=== PATIENT | female | born 1940 | race Caucasian/White ===

== ENCOUNTER 2016-08-17 05:16 | Inpatient (IN) | payer BC, OTHER ==
--- NOTE | 2016-07-25 12:06 | PAT Medication Instructions ---
Service Date Jul 25, 2016. Current Home Medication List Amlodipine (Norvasc), 2.5 MG PO QAM Aspirin (Aspirin Ec), 81 MG PO QAM Atenolol (Tenormin), 1 TAB PO BID Cholecalciferol (Vitamin D 1000 Unit), 1,000 INTER.UNIT PO QAM Fish Oil-Coenzyme Q10 (Fish Oil Plus Co Q-10), 1 CAP PO QPM Fluticasone Propionate (Nasal) (Flonase Allergy Relief Ch), 1 SPRAYS KARLA QAM Losartan Potassium (Cozaar), 100 MG PO QAM Magnesium Oxide (Mag-Ox), 400 MG PO QAM Multiple Vitamin (Multivitamin), 1 TAB PO QAM Pantoprazole (Pantoprazole Sodium), 40 MG PO QPM Paroxetine Hcl (Paxil), 10 MG PO QAM Pravastatin Sodium (Pravastatin Sodium), 2.5 MG PO Q2D Probiotic Product (Probiotic), 1 TAB PO QPM Tafluprost (Zioptan), 1 DROP OPL HS Medication Instructions For Your Scheduled Surgery - Hold the following medications 2 weeks prior to surgery: Fish Oil-Coenzyme Q10 (Fish Oil Plus Co Q-10), 1 CAP PO QPM - Hold the following medications the morning of surgery: Magnesium Oxide (Mag-Ox), 400 MG PO QAM Multiple Vitamin (Multivitamin), 1 TAB PO QAM Losartan Potassium (Cozaar), 100 MG PO QAM Cholecalciferol (Vitamin D 1000 Unit), 1,000 INTER.UNIT PO QAM - Take the following medications the morning of surgery with a sip of water: Pravastatin Sodium (Pravastatin Sodium), 2.5 MG PO Q2D Paroxetine Hcl (Paxil), 10 MG PO QAM Fluticasone Propionate (Nasal) (Flonase Allergy Relief Ch), 1 SPRAYS KARLA QAM Atenolol (Tenormin), 1 TAB PO BID Amlodipine (Norvasc), 2.5 MG PO QAM Aspirin (Aspirin Ec), 81 MG PO QAM (okay per surgeon instructions) - Take the following medications as scheduled the night before surgery: Tafluprost (Zioptan), 1 DROP OPL HS Probiotic Product (Probiotic), 1 TAB PO QPM Pantoprazole (Pantoprazole Sodium), 40 MG PO QPM If you have any questions please call us at [phone] (Suzette Chapa PA-C) or [phone] or [phone]
[2016-07-25 12:42] LABS: BASO % 0.3 %; BASO ABS # 0.02 K/uL (0-0.2); COMPLETE YES; EOS % 1.3 %; HEMATOCRIT 38.1 % (37-47); IG% 0.1 %; LYMPH % 23.3 %; LYMPH ABS # 1.63 K/uL (1.2-3.4); MEAN CORPUSCULAR HEMOGLOBIN 32.9 pg (25-34); MEAN CORPUSCULAR HGB CONC 34.6 g/dl (32-36); MEAN PLATELET VOLUME 10.3 fL (7.4-10.4); PLATELET COUNT 189 K/uL (130-400); RED BLOOD COUNT 4.01 M/uL (4.2-5.4); WHITE BLOOD COUNT 6.99 K/uL (4.8-10.8)
[2016-07-25 12:44] LABS: MANUAL MICROSCOPIC REQUIRED? NO; REVIEW REQ? NO; URINE APPEARANCE CLEAR (CLEAR); URINE BILIRUBIN NEG (NEG); URINE COLOR YELLOW; URINE NITRITE NEG (NEG); URINE SPECIFIC GRAVITY 1.007 (1.000-1.030); UROBILINOGEN NEG (NEG)
[2016-07-25 13:35] LABS: BUN/CREATININE RATIO 17.8 (10-20); CALCIUM 9.5 mg/dl (8.5-10.1); CREATININE 0.83 mg/dl (0.60-1.20); POTASSIUM 4.3 mmol/L (3.5-5.1)
--- NOTE | 2016-08-16 20:01 | HISTORY & PHYSICAL EXAMINATION ---
DATE OF ADMISSION: 08/17/2016 HISTORY AND PHYSICAL ADMISSION NOTE CHIEF COMPLAINT: Primary osteoarthritis of the right hip. HISTORY OF PRESENT ILLNESS: Lena is a pleasant 76-year-old female who has been dealing with chronic right hip pain for several years. X-rays and clinical examination were diagnostic for primary osteoarthritis of the right hip. After failing extensive conservative treatment, she elected to proceed with a right total hip arthroplasty. She understands all the risks, benefits, alternatives to the procedure. PAST MEDICAL HISTORY: Significant for mitral valve prolapse, osteoarthritis, hyperlipidemia, and hypertension. PAST SURGICAL HISTORY: Significant for 4 C-sections, 6 eye procedures, shoulder arthroplasty, knee arthroscopy and an appendectomy. ALLERGIES: PERCOCET. MEDICATIONS: Include aspirin 81 mg daily, Vitamin D3 1000 units daily, losartan 100 mg daily, Flonase 2 sprays daily, atenolol 50 mg daily, Protonix 40 mg daily, Norvasc 2.5 mg daily, Pravachol 5 mg every other day, Paxil 10 mg daily, and magnesium oxide 400 mg daily. FAMILY HISTORY: Noncontributory. SOCIAL HISTORY: She is , has 1-2 drinks a day and is moderately active. REVIEW OF SYSTEMS: She complains of right hip pain. All other pertinent review of systems is negative. PHYSICAL EXAMINATION: GENERAL: She is awake, alert and oriented x3. She is in no apparent distress. She is very pleasant. HEENT: Pupils are equal, round and reactive to light. Extraocular motion intact. Oral mucosa is pink and moist. HEART: Regular rate per radial pulse. LUNGS: Ramona symmetrically bilaterally with no audible breath sounds. ABDOMEN: Soft, nontender, nondistended. MUSCULOSKELETAL: She walks with a slightly antalgic gait. Her leg lengths are equal. She has limited motion with flexion and internal and external rotation. She has reproducible pain with forced internal rotation of her hip. IMAGING DATA: X-rays of the hip do show advanced osteoarthritis of the right hip. IMPRESSION: Primary osteoarthritis of the right hip. PLAN: Will proceed with a Biomet Taperloc right total hip arthroplasty. Postoperatively, she will be placed on aspirin 325 mg twice a day for DVT prophylaxis and be admitted for postoperative medical management. She will likely then be discharged to home with [facility].
[~2016-08-17] VITALS: Ht 160 cm; Wt 77.5 kg
[2016-08-17] VITALS (7 sets, daily range): BP systolic 117–171; BP diastolic 68–90; PULSE 50–58; TEMP 36.4–36.7; O2SAT 96–100; Ht 160 cm; Wt 77.5 kg
[~2016-08-17 05:16] MED LIST: AMLO2.5T PO; ASPI81TA28 PO; ATEN50TA PO; CHOL100027 PO; FENTANYL CITRATE INJ 50 MCG/1 ML 2 ML VIAL ONE; FISHCAP2 PO; FLUT1SPR12 NAE; LOSA100T65 PO; MAGN400T5 PO; MIDAZOLAM HCL 1 MG/ML 2ML VIAL ONE; MISCCAP80 PO; MULTTAB58 PO; PARO10TA PO; PRAV10TA39 PO; PRT/40 PO; TAFL1DRO14 OPL
[2016-08-17] MEDS ORDERED: FAMOTIDINE 20 MG TAB PO SCH (06:00)
[2016-08-17] MEDS ORDERED: LACTATED RINGER'S 1000ML IV SCH (06:00)
[2016-08-17] MEDS ORDERED: CEFAZOLIN 2000 MG/60 ML D5W 60 ML IV SCH (06:00)
[2016-08-17] MEDS ORDERED: LACTATED RINGER'S 500 ML IV SCH (06:00)
[2016-08-17] MEDS ORDERED: ROPIVACAINE 5MG/ML 30 ML 150 MG, BUPIVACAINE/EPINEPHR 0.5% MPF 30 ML, KETOROLAC TROMETH... INFIL SCH ×14 (06:00)
[2016-08-17] MEDS ORDERED: ACETAMINOPHEN 500 MG TAB PO SCH (06:00)
[2016-08-17] MEDS ORDERED: GABAPENTIN 300 MG CAP PO SCH (06:00)
[2016-08-17] MEDS ORDERED: LACTATED RINGER'S 1000ML 1,000 ML IV SCH (06:00)
[2016-08-17] MEDS: TRANEXAMIC ACID INJ 1,000 MG in SODIUM CHLORIDE 0.9% 100ML 100 ML IV SCH ×2 (06:14→06:30)
--- NOTE | 2016-08-17 06:17 | History & Physical Bridge Note ---
H&P Re-Evaluation Bridge Note: I have examined the patient, reviewed the History & Physical and in the interval since the performance of the History & Physical I have noted the following changes of clinical significance: No changes noted
[2016-08-17] MEDS ORDERED: BUPIVACAINE 0.5 % 5 MG/1 ML PF 10ML VIAL ONE (06:25)
[2016-08-17] MEDS ORDERED: ORTHO JOINT ANESTHETIC ONE (06:31)
[2016-08-17] MEDS ORDERED: MIDAZOLAM HCL 1 MG/ML 2ML VIAL ONE ×2 (06:35→07:08)
[2016-08-17] MEDS ORDERED: FENTANYL CITRATE INJ 50 MCG/1 ML 2 ML VIAL ONE (06:35)
[2016-08-17] MEDS ORDERED: EpHEDrine SULFATE 50MG/5ML SYR ONE (07:18)
[2016-08-17] MEDS ORDERED: PROPOFOL IV EMULSION 10 MG/ML 20 ML VIAL IV ONE (07:18)
[2016-08-17] MEDS ORDERED: LIDOCAINE HCL 2% 2 ML VIAL (20MG/ML) ONE (07:31)
[2016-08-17] MEDS ORDERED: BACITRACIN 50000 UNIT VIAL IR ONE (07:53)
[2016-08-17] MEDS ORDERED: ONDANSETRON INJ 2 MG/ML 2 ML VIAL IV PRN (08:30)
[2016-08-17] MEDS ORDERED: ATROPINE SULFATE 0.1 MG/ML 5ML SYR IV PRN (08:30)
[2016-08-17] MEDS ORDERED: EpHEDrine SULFATE INJ 50 MG/ML AMP IV PRN (08:30)
[2016-08-17] MEDS ORDERED: FENTANYL CITRATE INJ 50 MCG/1 ML 2 ML VIAL IV PRN (08:30)
--- NOTE | 2016-08-17 08:47 | [facility] Post Operative Brief Note ---
Immediate Operative Summary Operative Date Aug 17, 2016. Pre-Operative Diagnosis Primary Osteoarthritis Right Hip Post-Operative Diagnosis Primary Osteoarthritis Right Hip Procedure(s) Performed Right Total Hip Arthroplasty--Uncemented Surgeon Dr. Vasquez Artist Relationship Manager Surgeon(s) LENI Tucker Estimated Blood Loss 350 ml Findings as above Specimens A. Right Femoral Head Complication(s) None Disposition Recovery Room / PACU
[2016-08-17] MEDS ORDERED: MAGNESIUM HYDROXIDE SUSP 30 ML UDC PO PRN (09:00)
[2016-08-17] MEDS ORDERED: BISACODYL 10 MG SUPP PR PRN (09:00)
[2016-08-17] MEDS ORDERED: SOD PHOSPHATE/SOD BIPHOSPHATE ENEMA 132 ML BTL PR PRN (09:00)
--- NOTE | 2016-08-17 09:07 | OPERATIVE REPORT ---
DATE OF OPERATION: 08/17/2016 PREOPERATIVE DIAGNOSIS: Primary osteoarthritis of the right hip. POSTOPERATIVE DIAGNOSIS: Same. PROCEDURE: Right total hip arthroplasty. SURGEON: Dr. Yvon Vasquez. INDUSTRIAL EQUIPMENT MECHANIC: Bipin Raman PA-C, whose assistance was necessary for positioning the leg and helping with instrumentation. ANESTHESIA: Sedation with a spinal anesthetic. COMPLICATIONS: None. CONDITION: Stable to PACU. IMPLANTS USED: I used a Biomet taper lock total hip arthroplasty with a size 9 standard pressfit stem, 48-mm G7 cup with a single 20-mm screw, neutral E1-poly liner and a 32 standard ceramic head. INDICATIONS: Lena is a 76-year-old female who presented to my office with chronic right hip pain. X-rays and clinical examination were diagnostic for primary osteoarthritis of the right hip. After failing conservative treatment, she elected to undergo a right total hip arthroplasty. DESCRIPTION OF PROCEDURE: On 08/17/2016, she arrived at [facility] for the above procedure. She was seen in the preoperative holding area and the operative extremity was identified and signed. She was given a preoperative antibiotic and a spinal anesthetic. She was taken back to the operating room, laid on the table in supine position and given basic sedation. She was then put in the lateral decubitus position. The right hip was prepped and draped in sterile fashion. Time-out was done and the patient and operative extremity was properly identified. A lateral approach was utilized. Dissection was taken down through the fascia and the abductors were exposed, anterior third of the abductors were tenotomized off the greater trochanter. The capsule was excised and the hip was dislocated. The femoral neck was resected and the head was removed. The acetabulum was then exposed. Time was spent doing a complete circumferential capsular and labral release. Sequential reaming of the acetabulum up to a size 47 reamer was done. A 48-mm G7 cup was then impacted into place. I was able to get a good press fit. A single 20-mm screw was placed and the E1 neutral liner was snapped into place. The femoral neck was then exposed. Sequential broaching up to a size 9 broach was done. A standard head and neck assembly was applied. The hip was reduced, brought through a full range of motion and felt to be stable. A single flat plate x-ray showed appropriate sizing of the implants and good alignment of the hip. The trials were then removed. The final 9-mm femoral implant was impacted into place. A 32 standard ceramic head was then impacted into place. The hip was then reduced, brought through a full range of motion and felt to be stable. The entire wound was then irrigated with 3 liters of normal saline solution with bacitracin. The surrounding soft tissues were injected with 100 mL of orthopedic pain control cocktail. The abductors were then tenodesed back to the greater trochanter with transosseous FiberWire sutures and [id number] sutures. Two drains were placed. The fascia was closed with #1 Vicryl, skin was closed with 2-0 Vicryl, 3-0 V-Loc suture and a Prineo dressing. She was then taken to the postanesthesia care unit in stable condition. She tolerated the procedure well. I attest to the content of the Intraoperative Record and any orders documented therein. Any exceptio ns are noted below.
--- NOTE | 2016-08-17 09:34 | Anesthesiology Progress Note ---
Anesthesia Post Op Note Date & Time Aug 17, 2016 at 09:34 Vital Signs Pain Intensity: 0 Vital Signs Past 12 Hours Date Time Temp Pulse Resp B/P Pulse Ox O2 Delivery O2 Flow Rate FiO2 08/17/16 09:16 36.8 46 14 08/17/16 09:16 46 14 100 08/17/16 09:13 144/62 08/17/16 09:11 45 15 100 08/17/16 09:11 44 15 08/17/16 09:08 146/63 08/17/16 09:06 47 22 100 08/17/16 09:06 47 22 08/17/16 09:03 137/63 08/17/16 09:01 44 15 100 08/17/16 09:01 45 15 08/17/16 08:58 140/66 08/17/16 08:56 50 19 100 08/17/16 08:56 46 19 08/17/16 08:53 132/61 08/17/16 08:51 46 14 08/17/16 08:51 45 14 100 08/17/16 08:48 134/60 08/17/16 08:46 46 19 100 08/17/16 08:46 46 19 08/17/16 08:43 135/59 08/17/16 08:41 48 20 100 08/17/16 08:41 47 20 08/17/16 08:39 131/72 08/17/16 08:36 36.8 48 16 131/72 100 Nasal Cannula 3 08/17/16 05:35 36.7 58 20 171/71 100 Room Air Notes Mental Status: alert / awake / arousable, participated in evaluation Pt Amnestic to Procedure: Yes Nausea / Vomiting: adequately controlled Pain: adequately controlled Airway Patency, RR, SpO2: stable & adequate BP & HR: stable & adequate Hydration State: stable & adequate Neuraxial Anesthesia: was administered, sensory block is resolving Anesthetic Complications: no major complications apparent
--- NOTE | 2016-08-17 10:20 | DIAGNOSTIC IMAGING REPORT ---
AP PELVIS AND RIGHT HIP 2 VIEWS CLINICAL HISTORY: Degenerative arthritis. Postop examination. COMPARISON STUDY: No previous studies for comparison. FINDINGS: There are postsurgical changes of a total right hip arthroplasty. The acetabular and femoral components appear well seated. There is an overlying surgical drain. There is air within soft tissues consistent with recent surgery. No dislocation is visualized. IMPRESSION: Postsurgical changes of a total right hip arthroplasty. Electronically signed by: Timmy Ashley M.D. 08/17/2016 10:19 AM Dictated Date/Time: 08/17/2016 10:18 AM
[2016-08-17] MEDS ORDERED: NURSING VERBAL MED ORDER ONE ×2 (10:30→22:00)
[2016-08-17] MEDS: SODIUM CHLORIDE 0.9% 1000ML 1,000 ML IV SCH ×2 (10:54→20:29)
[2016-08-17] MEDS: TRAMADOL HCL 50 MG TAB PO PRN ×3 (11:54→20:36)
--- NOTE | 2016-08-17 12:36 | DIAGNOSTIC IMAGING REPORT ---
INTRAOPERATIVE LEFT HIP SINGLE VIEW CLINICAL HISTORY: Hip arthroplasty COMPARISON: None. DISCUSSION: A single intraoperative fluoroscopic spot images provided for interpretation. This demonstrates and acetabular cup and serrated femoral spike. IMPRESSION: Intraoperative fluoroscopic spot images as described above. Electronically signed by: Timmy Ashley M.D. 08/17/2016 12:35 PM Dictated Date/Time: 08/17/2016 12:34 PM
[2016-08-17] MEDS: ACETAMINOPHEN IV 1,000 MG in EMPTY BAG 0 ML IV SCH ×2 (13:58→20:28)
[2016-08-17] MEDS: CEFAZOLIN IV 2,000 MG in DEXTROSE 5% 50ML 50 ML IV SCH ×2 (14:44→23:15)
[2016-08-17] MEDS: TAFLUPROST 0.0015% OP SCH (20:21)
[2016-08-17] MEDS: SENNA 8.6 MG TAB PO SCH (20:26)
[2016-08-17] MEDS: DOCUSATE SODIUM 100 MG CAP PO SCH (20:27)
[2016-08-17] MEDS: ASPIRIN 325 MG ECTAB PO SCH (20:27)
[2016-08-17] MEDS ORDERED: KETOROLAC TROMETHAMINE 15 MG/ML VIAL ONE (21:59)
[2016-08-17] MEDS: KETOROLAC TROMETHAMINE 15 MG/ML VIAL IV. SCH (22:03)
[2016-08-18] MEDS: TRAMADOL HCL 50 MG TAB PO PRN ×4 (00:54→20:43)
[2016-08-18 03:20] VITALS: BP 150/64; PULSE 57; TEMP 36.8; O2SAT 99
[2016-08-18] MEDS: ACETAMINOPHEN IV 1,000 MG in EMPTY BAG 0 ML IV SCH (05:46)
[2016-08-18] MEDS: SODIUM CHLORIDE 0.9% 1000ML 1,000 ML IV SCH (05:46)
[2016-08-18 06:26] LABS: COMPLETE YES; HEMATOCRIT 29.7 % (37-47); IG% 0.3 %; LYMPH % 10.1 %; LYMPH ABS # 0.96 K/uL (1.2-3.4); MEAN CELL VOLUME 94.3 fL (80-100); MEAN PLATELET VOLUME 10.5 fL (7.4-10.4); MONO % 8.1 %; NEUT % 81.5 %; PLATELET COUNT 144 K/uL (130-400); RED BLOOD COUNT 3.15 M/uL (4.2-5.4); WHITE BLOOD COUNT 9.54 K/uL (4.8-10.8)
[2016-08-18 06:59] LABS: BUN/CREATININE RATIO 20.2 (10-20); CALCIUM 8.3 mg/dl (8.5-10.1); CREATININE 0.66 mg/dl (0.60-1.20)
[2016-08-18 08:00] VITALS: BP 138/90; PULSE 58; TEMP 36.7; O2SAT 95
[2016-08-18] MEDS: FLUTICASONE PROPIONATE NA SPR 16 GM BTL NAE SCH (08:53)
[2016-08-18] MEDS: DOCUSATE SODIUM 100 MG CAP PO SCH ×2 (08:54→20:45)
[2016-08-18] MEDS: MAGNESIUM OXIDE 400 MG TAB PO SCH (08:55)
[2016-08-18] MEDS: ASPIRIN 325 MG ECTAB PO SCH ×2 (08:55→20:44)
[2016-08-18] MEDS: PAROXETINE 20 MG TAB PO SCH (08:56)
[2016-08-18] MEDS: AMLODIPINE BESYLATE 5 MG TAB PO SCH (08:56)
[2016-08-18] MEDS: CHOLECALCIFEROL 1000 INTER.UNIT TAB PO SCH (08:57)
[2016-08-18] MEDS: KETOROLAC TROMETHAMINE 15 MG/ML VIAL IV. SCH ×2 (09:02→20:45)
[2016-08-18 09:55] VITALS: O2SAT 95
[2016-08-18] MEDS: LOSARTAN POTASSIUM 50 MG TAB PO SCH (10:21)
--- NOTE | 2016-08-18 10:33 | PROGRESS NOTE ---
DATE: 08/18/2016 DATE: 08/18/2016. CHIEF COMPLAINT: Status post right total hip arthroplasty postop day #1. PROGRESS: Lena was seen and examined at bedside today. Overall, she is doing fairly well. She was ambulating around the nurses station last night and she worked well today with physical therapy. She had a lot of spasms and pain in her hip last night but they are much better today. She has no other complaints. PHYSICAL EXAMINATION: RIGHT HIP: The dressing is clean and dry and the drain is to suction. Her leg lengths are equal. She has active dorsiflexion and plantarflexion of her right ankle. VITAL SIGNS: All stable on room air. She is voiding on her own. LABORATORY DATA: She has an H\T\H today of 10.4 and 29.7. Her creatinine is stable at 0.66. X-rays postoperatively of the right hip show the prosthesis to be in anatomic alignment without any evidence of fracture, dislocation or loosening. IMPRESSION: Status post right total hip arthroplasty postop day #1. PLAN: At this point, she is doing very well. Her pain is controlled with oral pain medication. She is working well with physical therapy. Tomorrow we will change the dressing, pull the drain and likely discharge her to home with [facility].
[2016-08-18] MEDS ORDERED: NURSING VERBAL MED ORDER ONE (10:45)
[2016-08-18 11:59] VITALS: BP 128/68; PULSE 64; TEMP 36.5; O2SAT 98
[2016-08-18 15:31] VITALS: BP 136/72; PULSE 55; TEMP 36.8; O2SAT 97
[2016-08-18] MEDS: TAFLUPROST 0.0015% OP SCH (20:42)
[2016-08-18] MEDS: SENNA 8.6 MG TAB PO SCH (20:43)
[2016-08-18] MEDS ORDERED: PRAVASTATIN SOD 10 MG TAB PO SCH (22:00)
[2016-08-18 23:09] VITALS: BP 130/66; PULSE 60; TEMP 36.4; O2SAT 95
[2016-08-19 08:07] VITALS: BP 144/73; PULSE 57; TEMP 36.9; O2SAT 97
[2016-08-19] MEDS: TRAMADOL HCL 50 MG TAB PO PRN (08:27)
[2016-08-19] MEDS: DOCUSATE SODIUM 100 MG CAP PO SCH (08:27)
[2016-08-19] MEDS: FLUTICASONE PROPIONATE NA SPR 16 GM BTL NAE SCH (08:27)
[2016-08-19] MEDS: LOSARTAN POTASSIUM 50 MG TAB PO SCH (08:28)
[2016-08-19] MEDS: ASPIRIN 325 MG ECTAB PO SCH (08:28)
[2016-08-19] MEDS: MAGNESIUM OXIDE 400 MG TAB PO SCH (08:28)
[2016-08-19] MEDS: AMLODIPINE BESYLATE 5 MG TAB PO SCH (08:29)
[2016-08-19] MEDS: PAROXETINE 20 MG TAB PO SCH (08:30)
[2016-08-19] MEDS: CHOLECALCIFEROL 1000 INTER.UNIT TAB PO SCH (08:30)
[2016-08-19] MEDS ORDERED: ULT50X PO (09:23)
--- NOTE | 2016-08-19 09:25 | Discharge Instructions ---
Discharge Instructions Admission Reason for Admission: Right Hip Degenerative Joint Disease Discharge Discharge Diagnosis / Problem: Right Total Hip Discharge Goals Goal(s): Decrease discomfort, Improve function Activity Recommendations Activity Limitations: as noted below Shower/Bathe: may shower/bathe in 3 days follow hip precautions for 3 months . Current Hospital Diet Patient's current hospital diet: Regular Diet Discharge Diet Recommended Diet: Regular Diet Procedures Procedures Performed: Right Total Hip Arthroplasty--Uncemented Pending Studies Studies pending at discharge: no Medical Emergencies . Who to Call and When: Medical Emergencies: If at any time you feel your situation is an emergency, please call 911 immediately. . Non-Emergent Contact Non-Emergency issues call your: Surgeon Call Non-Emergent contact if: wound has increased drainage, wound has increased redness . "Provider Documentation" section prepared by Yvon Vasquez. VTE Core Measure Inpt VTE Proph given/why not?: Other Anticoagulation (Aspirin 325mg twice a day for 6 weeks)
[2016-08-19] MEDS: KETOROLAC TROMETHAMINE 15 MG/ML VIAL IV. SCH (10:02)
[2016-08-19 10:23] VITALS: BP 144/73; PULSE 57; TEMP 36.9; O2SAT 97
--- NOTE | 2016-08-19 10:33 | DISCHARGE SUMMARY ---
DISCHARGE DIAGNOSIS: Primary osteoarthritis of the right hip. PROCEDURE: Right total hip arthroplasty on 08/17/[address] Yvon Vasquez. DISCHARGE INSTRUCTIONS: 1. Tramadol 50 mg every 4 hours as needed for pain. 2. Norvasc 2.5 mg daily. 3. Atenolol 50 mg daily. 4. Vitamin D 1000 units daily. 5. Fish oil daily. 6. Flonase 50 mcg daily. 7. Cozaar 100 mg daily. 8. Magnesium 400 mg daily. 9. Daily multivitamin. 10. Protonix 40 mg daily. 11. Paxil 10 mg daily. 12. Pravastatin 2.5 mg every other day. 13. Zioptan 1 drop at night. 14. Aspirin 325 mg twice a day for 6 weeks. 15. BALJEET hose stockings for 6 weeks. 16. May shower starting tomorrow. 17. Follow up with Dr. Vasquez in 2 weeks. 18. Call the office of Dr. Vasquez with any questions or concerns. HOSPITAL COURSE: Lena is a pleasant 76-year-old female who presented to my office with chronic right hip pain. X-rays and clinical examination were diagnostic for primary osteoarthritis of the right hip. After failing conservative treatment, she elected to undergo a right total hip arthroplasty. On 08/17/2016, she arrived at [facility] and underwent a right hip replacement without complications. She had a spinal anesthetic. Postoperatively, she was discharged to general orthopedic floors. Her hospital course was uneventful. On postop day #1, her H\T\H was stable at 10.4 and 29.7. She was on aspirin for DVT prophylaxis. She was up and ambulating well with physical therapy. On postop day 2, she continued to do fairly well. She was having more soreness on the second day, but it was controlled with the tramadol pain medications. The dressing was changed, the drain was pulled. She was seen again by physical therapy and subsequently discharged to home with the above instructions.
--- NOTE | 2016-08-19 10:55 | PROGRESS NOTE ---
DATE: 08/19/2016 CHIEF COMPLAINT: Status post right total hip arthroplasty postop day #2. SUBJECTIVE: Lena was seen and examined at the bedside today. Overall, she is doing fairly well. She was having more pain this morning than she had yesterday, but she was up and ambulating a lot yesterday. She has no new complaints. PHYSICAL EXAMINATION: RIGHT HIP: The dressing was changed, the Prineo was left exposed. The drains were pulled. The incision looks good. There is no drainage or redness. She is neurovascularly intact. IMPRESSION: Status post right total hip arthroplasty postop day #2. PLAN: At this point, she is doing well. We will continue to control pain with the oral tramadol. She will be seen by physical therapy later this morning and we will discharge her to home with [facility].
[2017-01-10] MEDS ORDERED: TRAM-10 PO (09:49)
== END 2016-08-19 11:29 | disposition home health service (06) | DRG 470 ==
LOC: ENRESERVTM → ENRESERVDT → C.ACU 05:16 → C.3E 06:25
PROVIDERS: ADMIT Orthopaedic Surgery; ATTEND Orthopaedic Surgery
PROC: 0SR904Z Replacement of Right Hip Joint with Ceramic on Polyethylene Synthetic Substitute, Open Approach (ICD-10-PCS; principal; 2016-08-17 07:00)
DX: M16.11 Unilateral primary osteoarthritis, right hip (principal); I10 Essential (primary) hypertension; E78.5 Hyperlipidemia, unspecified; K21.9 Gastro-esophageal reflux disease without esophagitis; F32.9 Major depressive disorder, single episode, unspecified; F41.9 Anxiety disorder, unspecified; H40.9 Unspecified glaucoma; Z87.891 Personal history of nicotine dependence; Z79.82 Long term (current) use of aspirin; Z79.899 Other long term (current) drug therapy

== ENCOUNTER → 2016-12-19 | Outpatient (CLI) | payer BC ==
[~2016-12-19] MED LIST changes: +ATEN50TA8 PO; -FENTANYL CITRATE INJ 50 MCG/1 ML 2 ML VIAL ONE; -MIDAZOLAM HCL 1 MG/ML 2ML VIAL ONE; +PANT40TA2 PO; -PRT/40 PO; +TRAM-10 PO; +ULT50X PO
[2016-12-19 13:32] LABS: BASO % 0.6 %; BASO ABS # 0.03 K/uL (0-0.2); COMPLETE YES; EOS % 2.3 %; HEMATOCRIT 37.5 % (37-47); IG% 0.4 %; LYMPH % 35.4 %; LYMPH ABS # 1.88 K/uL (1.2-3.4); MEAN CELL VOLUME 95.7 fL (80-100); MEAN CORPUSCULAR HEMOGLOBIN 31.9 pg (25-34); MEAN CORPUSCULAR HGB CONC 33.3 g/dl (32-36); MEAN PLATELET VOLUME 10.9 fL (7.4-10.4); MONO % 10.5 %; NEUT % 50.8 %; PLATELET COUNT 185 K/uL (130-400); RED BLOOD COUNT 3.92 M/uL (4.2-5.4); WHITE BLOOD COUNT 5.31 K/uL (4.8-10.8)
[2016-12-19 13:51] LABS: BLOOD UREA NITROGEN 17 mg/dl (7-18); BUN/CREATININE RATIO 21.4 (10-20); CALCIUM 8.7 mg/dl (8.5-10.1); CARBON DIOXIDE 28 mmol/L (21-32); CHLORIDE 106 mmol/L (98-107); CREATININE 0.81 mg/dl (0.60-1.20); GLUCOSE 89 mg/dl (70-99); POTASSIUM 4.2 mmol/L (3.5-5.1); SODIUM 140 mmol/L (136-145)
== END | disposition home or self-care (01) ==
LOC: C.LABBC 10:52
PROVIDERS: ATTEND Orthopaedic Surgery
DX: Z01.812 Encounter for preprocedural laboratory examination (principal); M25.562 Pain in left knee

== ENCOUNTER → 2017-01-10 | Day surgery (SDC) | payer BC ==
[2016-12-28 13:22] VITALS: Ht 157.5 cm; Wt 78.2 kg
[~2017-01-10] VITALS: Ht 157.5 cm; Wt 78.2 kg
[~2017-01-10] MED LIST changes: +ATROPINE SULFATE 0.1 MG/ML 5ML SYR IV PRN; +CEFAZOLIN 2000 MG/60 ML D5W IV SCH; +DEXAMETHASONE SOD INJ 4 MG/ML VIAL ONE; +EpINEphrine INJ 1MG/ML AMP 1 MG/ML AMP ONE; +FENTANYL CITRATE INJ 50 MCG/1 ML 2 ML VIAL ONE; +KETOROLAC TROMETHAMINE 30 MG/ML VIAL ONE; +LABETALOL HCL IV 5 MG/ML 20ML IV PRN; +LACTATED RINGER'S 1000ML 1,000 ML IV SCH; +LIDOCAINE HCL 2% 2 ML VIAL (20MG/ML) ONE; +ONDANSETRON INJ 2 MG/ML 2 ML VIAL IV PRN; +ONDANSETRON INJ 2 MG/ML 2 ML VIAL ONE; +PROPOFOL IV EMULSION 10 MG/ML 20 ML VIAL IV ONE; +ROPIVACAINE 0.5% 5 MG/ML 30 ML VIAL ONE; +SODIUM CHLORIDE 0.9% 1000ML 1,000 ML IV SCH; +TRAMADOL HCL 50 MG TAB PO PRN; -ULT50X PO
--- NOTE | 2017-01-10 09:51 | Discharge Instructions-SurgCtr ---
Discharge Instructions Date of Service Jan 10, 2017. Visit Reason for Visit: Left Knee Medial Meniscus Tear, Prepatellar Bursit Discharge Discharge Diagnosis / Problem: SAME ABOVE Discharge Goals Goal(s): Decrease discomfort, Improve function Medications Stopped Medications Name(s): HELD FISH OIL AND ASPIRIN FOR ONE WEEK Restart Stopped Medication(s): MAY RESTART 01/10/2017 Activity Recommendations Activity Limitations: as noted below Lifting Limitations: gradually increase as tolerated Exercise/Sports Limitations: gradually increase as tolerated Shower/Bathe: tomorrow Weightbearing Status: Left weightbearing (as tolerated) Anesthesia . Post Anesthesia Instructions: If you have had General Anesthesia or IV Sedation: * Do not drive today. * Resume driving when surgeon permits. * Do not make important decisions or sign legal documents today. * Call surgeon for: 1. Temperature elevations greater than 101 degrees F. 2. Uncontrollable pain. 3. Excessive bleeding. 4. Persistent nausea and vomiting. 5. Medication intolerance (nausea, vomiting or rash). * For nausea and vomiting use only clear liquids such as: tea, soda, bouillon until nausea subsides, then gradually increase diet as tolerated. * If you have any concerns or questions, call your surgeon's office. If physician is unavailable and it is an emergency, call 911 or go to the nearest emergency room. . Instructions / Follow-Up Instructions / Follow-Up MEDICATIONS: * Resume previous medications unless instructed otherwise by your surgeon. * Always take pain medication on a full stomach or with food to avoid upset stomach. * Do not drink alcohol or drive while taking narcotics. * Ibuprofen or Tylenol may be taken if narcotic not needed. SPECIAL CARE INSTRUCTIONS: __ None _X_ Keep extremity elevated and iced x 48 hours; apply ice 20-30 minutes 8-10 times/day. May remove at night. _X_ Crutches _X_ May discard when able __ Brace/Post-op shoe __ 24 hrs/day __ Remove at night _X_ Dressing __ Maintain until seen in office, may shower with plastic over site _X_ Remove dressings in 24-48 hours and then may shower _X_ Cover incisions with band-aids after showering __ Do not remove steri-strips Call physician if chills or temperature rises above 102 degrees or pain unrelieved by prescribed pain medications. Office [phone] Diet Recommendations Home Diet: no limitations Fluid Restriction: None Procedures Procedures Performed: Left Knee Arthroscopy, Partial Medial and Lateral Meniscectomy, Chondroplasty, And Excision Of Prepatellar Bursa Pending Studies Studies pending at discharge: no Medical Emergencies . Who to Call and When: Medical Emergencies: If at any time you feel your situation is an emergency, please call 911 immediately. . Non-Emergent Contact Non-Emergency issues call your: Primary Care Provider Call Non-Emergent contact if: you have a fever, temperature is above 101.5 . . "Provider Documentation" section prepared by Ajit Raman. .
[2017-01-10] MEDS: FENTANYL CITRATE INJ 50 MCG/1 ML 2 ML VIAL IV PRN ×4 (10:09→10:27)
[2017-01-10 10:52] VITALS: TEMP 36.6
--- NOTE | 2017-01-10 11:01 | Anesthesia Progress Nt - [facility] ---
Anesthesia Post Op Note Date & Time Jan 10, 2017 at 11:00 Vital Signs Pain Intensity: 5 Vital Signs Past 12 Hours Date Time Temp Pulse Resp B/P (MAP) Pulse Ox O2 Delivery O2 Flow Rate FiO2 01/10/17 10:52 36.6 60 16 159/87 (111) 96 Room Air 01/10/17 10:42 56 13 98 01/10/17 10:42 57 13 01/10/17 10:41 36.6 01/10/17 10:41 166/76 01/10/17 10:37 58 18 01/10/17 10:37 59 18 93 01/10/17 10:35 153/75 01/10/17 10:32 64 21 01/10/17 10:32 64 21 97 01/10/17 10:31 148/74 01/10/17 10:27 61 12 01/10/17 10:27 61 12 98 01/10/17 10:26 156/70 01/10/17 10:24 Room Air 01/10/17 10:22 61 14 93 01/10/17 10:22 61 14 01/10/17 10:20 161/79 01/10/17 10:17 58 13 01/10/17 10:17 59 13 100 01/10/17 10:15 155/75 01/10/17 10:12 55 15 01/10/17 10:12 55 15 100 01/10/17 10:11 150/60 01/10/17 10:07 56 14 92 01/10/17 10:07 65 14 01/10/17 10:05 155/76 01/10/17 10:02 57 14 01/10/17 10:02 57 14 100 01/10/17 10:01 141/79 01/10/17 09:57 58 15 100 01/10/17 09:57 57 15 01/10/17 09:55 141/70 01/10/17 09:52 53 10 01/10/17 09:52 53 10 98 01/10/17 09:50 36.6 52 14 142/69 98 Diffusion Mask 01/10/17 08:16 36.8 60 18 175/75 (108) 98 Room Air Notes Mental Status: alert / awake / arousable, participated in evaluation Pt Amnestic to Procedure: Yes Nausea / Vomiting: adequately controlled Pain: adequately controlled Airway Patency, RR, SpO2: stable & adequate BP & HR: stable & adequate Hydration State: stable & adequate Anesthetic Complications: no major complications apparent
[2017-01-10 11:20] VITALS: BP 157/81; PULSE 54; O2SAT 96
--- NOTE | 2017-01-10 15:38 | [facility] Post Operative Brief Note ---
Immediate Operative Summary Operative Date Jan 10, 2017. Pre-Operative Diagnosis Left Knee Medial Meniscus Tear Post-Operative Diagnosis Same Procedure(s) Performed Left Knee Arthroscopy, Partial Medial and Lateral Meniscectomy, Chondroplasty, And Excision Of Prepatellar Bursa Surgeon Dr. Vasquez Double Cut Sawyer Surgeon(s) iTmbo Raman PA-C Estimated Blood Loss 5 mL Findings as above Specimens None Complication(s) None Disposition Recovery Room / PACU
--- NOTE | 2017-01-10 18:51 | OPERATIVE REPORT ---
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 POSTOPERATIVE DIAGNOSES: Medial and lateral meniscal tears and chondromalacia with large plica and prepatellar bursitis. PROCEDURE: Left knee diagnostic arthroscopy with limited synovectomy including plica excision, chondroplasty of both the distal medial and lateral femoral condyle and partial medial and lateral meniscectomies with open excision of the prepatellar bursa. SURGEON: Dr. Yvon Vasquez. SUPERVISOR [employer] YE[employer]: Bipin Raman PA-C, whose assistance was necessary for positioning of the leg and helping with instrumentation. ANESTHESIA: General. COMPLICATIONS: None. CONDITION: Stable to PACU. INDICATIONS: Lena is a pleasant 76-year-old female who presented to my office with increasing severe left knee pain. MRI showed a complex medial meniscal tear and chondromalacia. She was also having pain in her prepatellar bursa. There was some inflammatory bursal tissue there that hurt her whenever she bend her knee or kneeled on it. DESCRIPTION OF PROCEDURE: On 01/10/2015 she arrived at [facility] for the above procedure. She was seen in the preoperative holding area and the operative extremity was identified and signed. She was given a preoperative antibiotic and taken back to the operating room, laid on the table in supine position and put under general anesthesia. The left knee was then prepped and draped in sterile fashion. Time-out was done and the patient and operative extremity was properly identified. A scope was introduced in the lateral parapatellar portal. Diagnostic arthroscopy showed no loose bodies in the suprapatellar pouch. There was minimal arthritis in the patellofemoral joint. There was a very large plica that was rubbing along the distal medial femoral condyle and looked like it was wearing the cartilage away. The scope was then brought into the medial compartment. A medial parapatellar portal was made under direct visualization. There was complex tearing of the entire posterior meniscus. A shaver and a biter were used to remove the unstable portions of the meniscus. Unfortunately, most of the meniscal root was torn. There was some chondromalacia of the distal medial femoral condyle and this was cleaned up with a shaver. The scope was brought into the trochlea. ACL and PCL were intact. The scope was then brought into the lateral compartment. There was some tearing of the posterior root of the lateral meniscus. A shaver and biter were used to take back to stable margins. A shaver was used to do a chondroplasty of grade 2 chondral changes off the distal lateral femoral condyle. The knee was then brought into full extension. A shaver and a biter were used to remove the plica and complete a limited synovectomy of the area. This appeared to release some tension off the cartilage surface. The scope was then placed into the medial parapatellar portal, repeat diagnostic arthroscopy showed no additional pathology. The knee was then irrigated and arthroscopic instrument removed. Attention was then turned to the excision of prepatellar bursa. A small incision was made longitudinally directly over the bursa. Dissection was taken down to the tissue and inflammatory tissue complements were excised. The wound was then irrigated and closed with 4-0 nylon sutures. Portal sites were closed with 3-0 nylon. The knee was then injected with 30 mL of ropivacaine and Toradol. She was then placed in a soft compressive dressing, extubated, transferred to a [facility] and taken to the postanesthesia care unit in stable condition. She tolerated the procedure well. I attest to the content of the Intraoperative Record and any orders documented therein. Any exception s are noted below.
== END | disposition home or self-care (01) ==
LOC: X.SURG 07:22
PROVIDERS: ATTEND Orthopaedic Surgery
DX: M23.322 Other meniscus derangements, posterior horn of medial meniscus, left knee (principal); M23.352 Other meniscus derangements, posterior horn of lateral meniscus, left knee; I10 Essential (primary) hypertension; I34.1 Nonrheumatic mitral (valve) prolapse; Z79.82 Long term (current) use of aspirin

== ENCOUNTER → 2017-01-30 | Outpatient (CLI) | payer BC ==
[~2017-01-30] MED LIST changes: -ASPI81TA28 PO; -ATEN50TA8 PO; -ATROPINE SULFATE 0.1 MG/ML 5ML SYR IV PRN; -CEFAZOLIN 2000 MG/60 ML D5W IV SCH; -DEXAMETHASONE SOD INJ 4 MG/ML VIAL ONE; -EpINEphrine INJ 1MG/ML AMP 1 MG/ML AMP ONE; -FENTANYL CITRATE INJ 50 MCG/1 ML 2 ML VIAL ONE; -KETOROLAC TROMETHAMINE 30 MG/ML VIAL ONE; -LABETALOL HCL IV 5 MG/ML 20ML IV PRN; -LACTATED RINGER'S 1000ML 1,000 ML IV SCH; -LIDOCAINE HCL 2% 2 ML VIAL (20MG/ML) ONE; -ONDANSETRON INJ 2 MG/ML 2 ML VIAL IV PRN; -ONDANSETRON INJ 2 MG/ML 2 ML VIAL ONE; -PANT40TA2 PO; -PROPOFOL IV EMULSION 10 MG/ML 20 ML VIAL IV ONE; +PRT/40 PO; -ROPIVACAINE 0.5% 5 MG/ML 30 ML VIAL ONE; -SODIUM CHLORIDE 0.9% 1000ML 1,000 ML IV SCH; -TRAMADOL HCL 50 MG TAB PO PRN
--- NOTE | 2017-01-30 15:38 | MAMMOGRAPHY REPORT ---
BILATERAL DIGITAL SCREENING MAMMOGRAM WITH CAD: 01/30/2017 CLINICAL HISTORY: Routine screening. TECHNIQUE: Current study was also evaluated with a Computer Aided Detection (CAD) system. Bilateral CC and MLO views were obtained. COMPARISON: Comparison is made to exams dated: 01/10/2016 mammogram, 01/06/2015 mammogram, 01/05/2014 m ammogram, 12/30/2012 mammogram, 01/29/2012 mammogram, and 12/13/2010 mammogram - [facility] enter. BREAST COMPOSITION: There are scattered areas of fibroglandular density in both breasts. FINDINGS: No suspicious masses, calcifications, or areas of architectural distortion are noted in ei ther breast. There has been no significant interval change compared to prior exams. Bilateral benign -appearing calcifications are not significantly changed. IMPRESSION: ACR BI-RADS CATEGORY 2: BENIGN There is no mammographic evidence of malignancy. A 1 year screening mammogram is recommended. The pa tient will receive written notification of the results. Approximately 10% of breast cancers are not detected with mammography. A negative mammographic report should not delay biopsy if a clinically suggestive mass is present. Mar Bateman M.D. /:01/30/2017 11:32:52 Internet Marketing Specialist: Jenaro KRAMER(Atul)(M), [facility] letter sent: Normal 1/2 BI-RADS Code: ACR BI-RADS Category 2: Benign
== END | disposition home or self-care (01) ==
LOC: C.MAMM 11:15
PROVIDERS: ATTEND Family Medicine
DX: Z12.31 Encounter for screening mammogram for malignant neoplasm of breast (principal)

== ENCOUNTER → 2017-03-19 | Outpatient (CLI) | payer BC ==
--- NOTE | 2017-03-19 17:49 | DIAGNOSTIC IMAGING REPORT ---
MRI LUMBAR SPINE W/O CONTRAST CLINICAL HISTORY: ACUTE LEFT LOWER BACK PAIN W/SCIATIC TECHNIQUE: Sagittal and axial T1, T2 and STIR images were obtained. COMPARISON STUDY: No previous studies for comparison. OBSERVATIONS: The vertebral bodies and posterior elements appear intact. There is no abnormal bony signal present to suggest a marrow replacement process. There are focal fatty rests at the L1 and L2 levels. L1-2: No disc protrusions or extrusions. No evidence of spinal canal or neural foraminal compromise. L2-3: There is a grade 1 spondylolisthesis of L2 on L3. There is a circumferential disc bulge present. There is moderate spinal stenosis. There is minimal bilateral subforaminal narrowing L3-4: There is a circumferential disc bulge. There is facet joint arthropathy. There is moderate spinal stenosis. There is minor bilateral subforaminal narrowing. L4-5: There is a circumferential disc bulge, and small left foraminal disc protrusion.. There is mild spinal stenosis. There is mild left-sided foraminal narrowing L5-S1: No disc protrusions or extrusions. No evidence of spinal canal or neural foraminal compromise. The conus medullaris and cauda equina appear normal. IMPRESSION: 1. Multilevel spondylitic changes 2. Multilevel disc bulges with moderate spinal stenosis the L2-3, and moderate spinal stenosis the L3-4 level. Mild bilateral foraminal narrowing at the L2-3 and L3-4 levels. 3. Circumferential disc bulge and small left foraminal disc protrusion at the L4-5 level. Mild spinal stenosis and mild left-sided foraminal narrowing. Electronically signed by: Timmy Ashley M.D. 03/19/2017 5:47 PM Dictated Date/Time: 03/19/2017 5:43 PM
== END | disposition home or self-care (01) ==
LOC: C.MRI 16:51
PROVIDERS: ATTEND Family Medicine
DX: R29.898 Other symptoms and signs involving the musculoskeletal system (principal); R29.2 Abnormal reflex; Z74.09 Other reduced mobility; M51.26 Other intervertebral disc displacement, lumbar region; M48.06 Spinal stenosis, lumbar region

== ENCOUNTER 2017-06-17 17:26 | Emergency (ER) | payer BC ==
[~2017-06-17] VITALS: Ht 157.5 cm; Wt 82.4 kg
[~2017-06-17 17:26] MED LIST changes: +PANT40TA2 PO; -PRT/40 PO
[2017-06-17 17:33] VITALS: TEMP 37; Ht 157.5 cm; Wt 82.4 kg
[2017-06-17] MEDS ORDERED: ONDANSETRON INJ 2 MG/ML 2 ML VIAL IV STA (18:46)
[2017-06-17] MEDS ORDERED: GI COCKTAIL PO STA (18:46)
--- NOTE | 2017-06-17 18:57 | EMERGENCY ROOM VISIT NOTE ---
History Report prepared by Bisi: April Valdez Under the Supervision of: Dr. Dexter Finch M.D. First contact with patient: 18:06 Chief Complaint: ABDOMINAL PAIN Stated Complaint: UPSET STOMACH, BACK PAIN, DISCOMFORT IN CHEST Nursing Triage Summary: Sinus infection few weeks ago treated with abx, ever since then has had diarrhea and then developed back pain, joint pain, and today developed chest discomfort 1/10. History of Present Illness The patient is a 77 year old white female with a past medical history of hypertension, IBS, mitral valve prolapse, and PVCs who presents to the ED with a cc of constant abdominal pain beginning 2 weeks ago. The patient states that she had a sinus infection a few weeks ago and was put on amoxicillin and has been having diarrhea since she stopped taking it 2 weeks ago. Positive arm pain , nausea, back pain, joint pain, chest pain, diarrhea, cough. Negative sick contacts, recent travel, tick bites, fevers, chills, vomiting. She is not on any blood thinners. The patient rates her chest discomfort as a 1/10 in severity. Source of History: patient Onset: 2 weeks ago Position: abdomen Timing: constant Associated Symptoms: + chest pain, + nausea, + back pain, + diarrhea, No fevers, No chills, No vomiting Note: Positive arm pain, joint pain. Negative sick contacts, recent travel, tick bites. Review of Systems See HPI for pertinent positives and negatives. A total of ten systems were reviewed and were otherwise negative. Past Medical & Surgical Medical Problems: (1) Adjustment disorder with depressed mood (2) Carotid artery disease (3) Dyslipidemia (4) GERD (gastroesophageal reflux disease) (5) Glaucoma (6) History of PSVT (paroxysmal supraventricular tachycardia) (7) Hypertension (8) Irritable bowel syndrome (9) Irritable bowel syndrome (IBS) (10) Mitral valve prolapse (11) Mitral valve regurgitation (12) MVP (mitral valve prolapse) (13) Myalgia and myositis, unspecified (14) Osteoarthritis of hip (15) PVCs (premature ventricular contractions) (16) Sjogren's syndrome Surgical Problems: (1) H/O arthroscopic knee surgery (2) H/O eye surgery (3) Hx of appendectomy (4) Previous section (5) S/p EGD (6) S/P rotator cuff repair Family History Diabetes mellitus FH: cancer FH: heart disease FH: lung disease Hypertension Social History Smoking Status: Never Smoker Alcohol Use: none Marital Status: single Housing Status: lives alone Occupation Status: retired Current/Historical Medications Scheduled Amlodipine (Norvasc), 2.5 MG PO QAM Aspirin (Aspirin Ec), 81 MG PO DAILY Atenolol (Tenormin), 50 MG PO BID Cholecalciferol (Vitamin D 1000 Unit), 1,000 INTER.UNIT PO QAM Fish Oil-Coenzyme Q10 (Fish Oil Plus Co Q-10), 1 CAP PO QPM Fluticasone Propionate (Nasal) (Flonase Allergy Relief Ch), 2 SPRAYS KARLA QAM Losartan Potassium (Cozaar), 100 MG PO QAM Magnesium Oxide (Mag-Ox), 400 MG PO QAM Multiple Vitamin (Multivitamin), 1 TAB PO QAM Pantoprazole (Pantoprazole Sodium), 40 MG PO QPM Paroxetine Hcl (Paxil), 10 MG PO QAM Pravastatin Sodium (Pravastatin Sodium), 5 MG PO Q2D Probiotic Product (Probiotic), 1 TAB PO QPM Tafluprost (Zioptan), 1 DROP OPL HS Allergies Coded Allergies: Sulfa Antibiotics (Verified Allergy, Mild, rash, 01/10/17) JAMAAL Inhibitors (Unverified Adverse Reaction, Unknown, COUGH, 01/10/17) Morphine (Unverified Adverse Reaction, Unknown, N/V per cardio note- tolerates IV morphine not PO, 01/10/17) Oxycodone (Unverified Adverse Reaction, Unknown, upset stomach/vomiting, ) Sulindac (Unverified Adverse Reaction, Unknown, NAUSEA VOMITING, 01/10/17) Physical Exam Vital Signs Date Time Temp Pulse Resp B/P (MAP) Pulse Ox O2 Delivery O2 Flow Rate FiO2 06/17/17 21:13 76 16 193/75 96 06/17/17 19:31 80 06/17/17 19:19 82 16 215/96 95 Room Air 06/17/17 17:33 37.0 78 18 189/96 96 Room Air Physical Exam GENERAL: Awake, alert, well-appearing, NAD HENT: Normocephalic, atraumatic. EYES: Normal conjunctiva. Sclera non-icteric. NECK: Supple. No nuchal rigidity. FROM. RESPIRATORY: CTAB, no rhonchi, wheezing, crackles CARDIAC: RRR, no RG, systolic ejection murmur ABDOMEN: Soft, NTND, BS+ MSK: No chest wall TTP, no LE edema NEURO: GCS 15, CN 2-12 intact, moves all 4s on command SKIN: No rash or jaundice noted. Medical Decision & Procedures ER Provider Diagnostic Interpretation: X-ray: Per my interpretation, radiologist review. CHEST ONE VIEW PORTABLE FINDINGS: Atherosclerosis of aortic arch. Cardiac silhouette normal in size. Lungs and pleural spaces clear. Degenerative changes of the thoracic spine. Chronic posttraumatic deformity of the left clavicle. Upper abdomen normal. IMPRESSION: 1. No acute cardiopulmonary disease. Electronically signed by: Serafin Glalego M.D. 06/17/2017 7:09 PM Dictated Date/Time: 06/17/2017 7:08 PM Laboratory Results 06/17/17 18:50 Red Blood Count 3.90, Mean Corpuscular Volume 98.7, Mean Corpuscular Hemoglobin 33.8, Mean Corpuscular Hemoglobin Concent 34.3, Mean Platelet Volume 10.6, Neutrophils (%) (Auto) 67.8, Lymphocytes (%) (Auto) 22.5, Monocytes (%) (Auto) 8.4, Eosinophils (%) (Auto) 0.9, Basophils (%) (Auto) 0.3, Neutrophils # (Auto) 4.77, Lymphocytes # (Auto) 1.58, Monocytes # (Auto) 0.59, Eosinophils # (Auto) 0.06, Basophils # (Auto) 0.02 06/17/17 18:50 Test 06/17/17 18:45 06/17/17 18:50 Urine Color YELLOW Urine Appearance CLEAR (CLEAR) Urine pH 5.5 (4.5-7.5) Urine Specific [place] 1.019 (1.000-1.030) Urine Protein NEG (NEG) Urine Glucose (UA) NEG (NEG) Urine Ketones NEG (NEG) Urine Occult Blood NEG (NEG) Urine Nitrite NEG (NEG) Urine Bilirubin NEG (NEG) Urine Urobilinogen NEG (NEG) Urine Leukocyte Esterase SMALL (NEG) Urine WBC (Auto) 1-5 /hpf (0-5) Urine RBC (Auto) 0-4 /hpf (0-4) Urine Hyaline Casts (Auto) 0 /lpf (0-5) Urine Epithelial Cells (Auto) 5-10 /lpf (0-5) Urine Bacteria (Auto) NEG (NEG) White Blood Count 7.03 K/uL (4.8-10.8) Red Blood Count 3.90 M/uL (4.2-5.4) Hemoglobin 13.2 g/dL (12.0-16.0) Hematocrit 38.5 % (37-47) Mean Corpuscular Volume 98.7 fL (80-100) Mean Corpuscular Hemoglobin 33.8 pg (25-34) Mean Corpuscular Hemoglobin Concent 34.3 g/dl (32-36) Platelet Count 175 K/uL (130-400) Mean Platelet Volume 10.6 fL (7.4-10.4) Neutrophils (%) (Auto) 67.8 % Lymphocytes (%) (Auto) 22.5 % Monocytes (%) (Auto) 8.4 % Eosinophils (%) (Auto) 0.9 % Basophils (%) (Auto) 0.3 % Neutrophils # (Auto) 4.77 K/uL (1.4-6.5) Lymphocytes # (Auto) 1.58 K/uL (1.2-3.4) Monocytes # (Auto) 0.59 K/uL (0.11-0.59) Eosinophils # (Auto) 0.06 K/uL (0-0.5) Basophils # (Auto) 0.02 K/uL (0-0.2) RDW Standard Deviation 45.6 fL (36.4-46.3) RDW Coefficient of Variation 12.7 % (11.5-14.5) Immature Granulocyte % (Auto) 0.1 % Immature Granulocyte # (Auto) 0.01 K/uL (0.00-0.02) Anion Gap 8.0 mmol/L (3-11) Est Creatinine Clear Calc Drug Dose 53.4 ml/min Estimated GFR () 75.5 Estimated GFR (Non- 65.2 BUN/Creatinine Ratio 14.5 (10-20) Calcium Level 9.1 mg/dl (8.5-10.1) Total Bilirubin 0.5 mg/dl (0.2-1) Direct Bilirubin 0.1 mg/dl (0-0.2) Aspartate Amino Transf (AST/SGOT) 20 U/L (15-37) Alanine Aminotransferase (ALT/SGPT) 22 U/L (12-78) Alkaline Phosphatase 70 U/L (45-117) Troponin I < 0.015 ng/ml (0-0.045) Total Protein 7.2 gm/dl (6.4-8.2) Albumin 4.2 gm/dl (3.4-5.0) Lipase 128 U/L (73-393) Laboratory results reviewed by me Medications Administered Medications (Trade) Dose Ordered Sig/Aundrea Route Start Time Stop Time Status Last Admin Dose Admin Ondansetron HCl (Zofran Inj) 4 mg NOW STAT IV 06/17/17 18:46 06/17/17 18:49 DC 06/17/17 18:46 4 MG Famotidine (Pepcid Tab) 20 mg NOW ONCE PO 06/17/17 19:00 06/17/17 19:01 DC 06/17/17 19:00 20 MG Lidocaine HCl (Viscous Lidocaine 2% Soln) 20 ml STK-MED ONCE .ROUTE 06/17/17 19:14 06/17/17 19:15 DC 06/17/17 19:14 10 ML Al Hydroxide/Mg Hydroxide (Maalox Susp) 30 ml STK-MED ONCE .ROUTE 06/17/17 19:14 06/17/17 19:15 DC 06/17/17 19:14 30 ML ECG Indication: chest pain Rate (beats per minute): 83 Rhythm: sinus rhythm Findings: 1st degree AV block, other (OH inverval of 200ms normal axis no other STS or TWI) ED Course 1805: The patient was evaluated in room C6. A complete history and physical exam was performed. 2021: I reevaluated and updated the patient. 2034: I reevaluated the patient. Discussed results and discharge instructions: She verbalized understanding and agreement. The patient is ready for discharge. Medical Decision Differential diagnosis: Etiologies such as appendicitis, diverticulitis, PUD, biliary pathology, UTI, pancreatitis, obstruction, mesenteric ischemia, aortic pathology, infections, inflammatory bowel disease, renal colic, as well as others were entertained. Patient was seen and evaluated at the bedside. He states that she has had some mild nausea along with some diarrhea ongoing for about 2-3 weeks. Patient states that she was on amoxicillin for sinus infection which was completed about 2 weeks prior. Patient denies any recent travel. She denies any other antibiotic use. Patient does have wall water but is treated test. Patient states that when also sick at home. Patient did say that she was mildly concerned about her heart given the nausea and the persistent symptoms. Patient states she has not taken much at home. Patient did have blood work that was completed along with an EKG, troponin, chest x-ray, and urinalysis. Patient's blood work was fairly unremarkable. Patient did not have an elevated white count. Her LFTs and lipase were within normal limits. BMP was normal. EKG w/ borderline 1st degree AV block. Patient's troponin was negative. Given the patient's negative troponin and unchanged EKG with her chronicity of pain less likely atypical chest pain or ACS. Furthermore, the patient never complained of any chest pain but just nausea. Patient's chest x-ray was clear. Patient states she was feeling improved after symptom control. Patient was given further instructions for at-home care and was deemed suitable for outpatient follow-up and treatment. Patient was amenable with this plan of care. Patient was given strict follow-up, discharge, and return precautions. All questions were answered. Patient was deemed suitable for outpatient follow- up at this time. Patient agreed with the plan of care and was safely discharged home. Medication Reconcilliation Current Medication List: was personally reviewed by me Blood Pressure Screening Patient's blood pressure: Elevated blood pressure Blood pressure disposition: Elevated BP felt to be situational Impression Primary Impression: Enteritis Additional Impression: Nausea Scribe Attestation The scribe's documentation has been prepared under my direction and personally reviewed by me in its entirety. I confirm that the note above accurately reflects all work, treatment, procedures, and medical decision making performed by me. Departure Information Dispostion Home / Self-Care Referrals Shiv Spring M.D. (PCP) Patient Instructions Diarrhea, Diet High Fiber Dc, ED Nausea Vomiting, My [facility] Additional Instructions Please return to the emergency department if you have worsening or recurrent symptoms not amenable to at-home treatment. Please call for a follow-up appointment with her primary care physician. Please take your medications as prescribed. If you have other concerns and/or complaints please feel free to also call your primary care physician's office or return the ED for further evaluation, management, and treatment. Avoid NSAIDs, spicy or citrus foods, caffeine, and peppermint and chocolate. Consider eating smaller meals. He may try a dose of Imodium Mylanta prior to eating. Consider increasing fiber in her diet. You may take tylenol 650 mg every 6 hours as needed for pain. Take your medications as prescribed. You have been examined and treated today on an emergency basis only. This is not a substitute for, or an effort to provide, complete comprehensive medical care. It is impossible to recognize and treat all injuries or illnesses in a single emergency department visit. It is therefore important that you follow up closely with [facility], your PCP, and/or your specialist(s). Call as soon as possible for an appointment. Thank you for your time and consideration. I look forward to speaking with you again soon. Please don't hesitate to call us if you have any questions. Problem Qualifiers
[2017-06-17] MEDS ORDERED: FAMOTIDINE 20 MG TAB PO ONE (19:00)
--- NOTE | 2017-06-17 19:10 | DIAGNOSTIC IMAGING REPORT ---
CHEST ONE VIEW PORTABLE CLINICAL HISTORY: 77 years-old Female presenting with ABDOMINAL PAIN/GI. TECHNIQUE: Portable upright AP view of the chest was obtained. COMPARISON: 12/03/2015. FINDINGS: Atherosclerosis of aortic arch. Cardiac silhouette normal in size. Lungs and pleural spaces clear. Degenerative changes of the thoracic spine. Chronic posttraumatic deformity of the left clavicle. Upper abdomen normal. IMPRESSION: 1. No acute cardiopulmonary disease. Electronically signed by: Serafin Gallego M.D. 06/17/2017 7:09 PM Dictated Date/Time: 06/17/2017 7:08 PM
[2017-06-17] MEDS ORDERED: LIDOCAINE HCL 2% VISC SOLN 20 ML UDC ONE (19:14)
[2017-06-17] MEDS ORDERED: ALUMINUM/MAGNESIUM SUSP 30 ML UDC ONE (19:14)
[2017-06-17] MEDS ORDERED: ATEN50TA8 PO (19:17)
[2017-06-17] MEDS ORDERED: ASPI81TA28 PO (19:22)
[2017-06-17 19:25] LABS: BASO % 0.3 %; BASO ABS # 0.02 K/uL (0-0.2); COMPLETE YES; EOS % 0.9 %; HEMATOCRIT 38.5 % (37-47); IG% 0.1 %; LYMPH % 22.5 %; LYMPH ABS # 1.58 K/uL (1.2-3.4); MEAN CELL VOLUME 98.7 fL (80-100); MEAN CORPUSCULAR HEMOGLOBIN 33.8 pg (25-34); MEAN CORPUSCULAR HGB CONC 34.3 g/dl (32-36); MEAN PLATELET VOLUME 10.6 fL (7.4-10.4); MONO % 8.4 %; NEUT % 67.8 %; PLATELET COUNT 175 K/uL (130-400); WHITE BLOOD COUNT 7.03 K/uL (4.8-10.8)
[2017-06-17 19:30] LABS: URINE APPEARANCE CLEAR (CLEAR); URINE BILIRUBIN NEG (NEG); URINE COLOR YELLOW; URINE NITRITE NEG (NEG); URINE PH 5.5 (4.5-7.5); URINE SPECIFIC GRAVITY 1.019 (1.000-1.030); UROBILINOGEN NEG (NEG); ZZUR CULT IF INDIC CLEAN CATCH NO
[2017-06-17 19:31] LABS: MANUAL MICROSCOPIC REQUIRED? NO; REVIEW REQ? NO
[2017-06-17 19:53] LABS: ALT/SGPT 22 U/L (12-78); AST/SGOT 20 U/L (15-37); BLOOD UREA NITROGEN 12 mg/dl (7-18); BUN/CREATININE RATIO 14.5 (10-20); CALCIUM 9.1 mg/dl (8.5-10.1); CARBON DIOXIDE 26 mmol/L (21-32); CHLORIDE 102 mmol/L (98-107); CREATININE 0.85 mg/dl (0.60-1.20); GLUCOSE 107 mg/dl (70-99); POTASSIUM 3.4 mmol/L (3.5-5.1); SODIUM 136 mmol/L (136-145)
[2017-06-17 19:58] LABS: ALKALINE PHOSPHATASE 70 U/L (45-117)
[2017-06-17 21:13] VITALS: BP 193/75; PULSE 76; O2SAT 96
== END 2017-06-17 21:14 | disposition home or self-care (01) ==
LOC: C.EDB 17:28 → C.EDC 21:14
DX: K52.9 Noninfective gastroenteritis and colitis, unspecified (principal); I10 Essential (primary) hypertension; K58.9 Irritable bowel syndrome, unspecified; I34.1 Nonrheumatic mitral (valve) prolapse; I49.3 Ventricular premature depolarization; F43.21 Adjustment disorder with depressed mood; E78.5 Hyperlipidemia, unspecified; K21.9 Gastro-esophageal reflux disease without esophagitis; H40.9 Unspecified glaucoma; M16.10 Unilateral primary osteoarthritis, unspecified hip; M35.00 Sjogren syndrome, unspecified; Z79.82 Long term (current) use of aspirin; Z90.89 Acquired absence of other organs; Z83.3 Family history of diabetes mellitus; Z80.9 Family history of malignant neoplasm, unspecified; Z82.49 Family history of ischemic heart disease and other diseases of the circulatory system

== ENCOUNTER 2024-04-13 15:28 | Inpatient (IN) ==
--- NOTE | 2024-04-13 16:19 | Emergency Department Note ---
Impression & Plan Non-ST elevation AK (NSTEMI), Fall from standing, Facial hematoma, Hypomagnesemia, Acute hypokalemia, Acute pain of left wrist ED Provider Note HISTORY OF PRESENT ILLNESS: Patient is an 83-year-old female presenting with head injury after a fall. Patient reports she was walking out of a building at around 1500 today when she was looking up at something and missed 2 stairs. She states that the stairs led to a wall and she fell into the wall and struck the left side of her head. Denies loss of consciousness. She is complaining of left wrist and left knee pain. She is on 81 mg aspirin daily. Denies any numbness or tingling or weakness in her extremities. Denies any headache or changes in vision. Denies any pain with extraocular movements. She denies any chest pain, shortness of breath or lightheadedness prior to the fall. Reports tetanus is up-to-date. Son presents later and supplies more history. Reports that the patient has been having recurrent falls at home. He reports that she lives home alone. States that she has been falling at least once a day for the last few days. Patient does not know why she is falling. ROS: as above PHYSICAL EXAM: Constitutional: Patient appears in no acute distress. HENT: Head: Normocephalic. Small abrasion to the left lateral portion of the eyebrow overlying a large hematoma. Eyes: EOMI, PERRL Mouth/Throat: Mucous membranes moist. Neck: Trachea midline. Neck supple. No midline cervical spine tenderness to palpation. Cardiovascular: RRR, No murmurs, rubs or gallops. Intact distal pulses. Pulmonary/Chest: No respiratory distress. Breath sounds clear and equal bilaterally. No wheezes or rales. Abdominal: Abdomen soft, no tenderness, rebound or guarding. Musculoskeletal: No edema, tenderness or deformity noted. Skin: Warm and dry. No rash, erythema, pallor or cyanosis Psychiatric: Appropriate mood and affect for situation. Neurological: Alert and keenly responsive. CN II-XII grossly intact, moving all extremities equally and fully. MDM: - Vitals signs showed hypertension. - History obtained via patient. History as above. - Chronic conditions affecting care: HLD; GERD; HTN; Sjogren's syndrome - Differential diagnoses include, but are not limited to: CVA; intracranial hemorrhage; ACS; distal radius fracture; skull fracture; electrolyte abnormality; dysrhythmia - Order placed for continuous cardiac monitoring. At this time, monitor showed rate of 63 bpm with normal sinus rhythm, per my interpretation. - External medical records reviewed. - EKG interpreted by myself showed normal sinus rhythm. Rate 67 bpm. QT 396. No acute ischemic changes. - Laboratory workup interpreted by myself showed normal WBC; slight hypokalemia (K 3.4); hypomagnesemia (Mg 1.6); elevated troponin (70) - CXR negative for pneumonia, per my interpretation - Xray left wrist negative for acute fracture. Noted to have a radial styloid lucency which could be an age-indeterminate nondisplaced fracture, per radiology. Patient was placed in a wrist lacer for comfort. - CT head wo contrast negative for acute intracranial pathology - CT cervical spine wo contrast negative for acute injury - Patient given 1g IV magnesium for electrolyte replacement. - Given 324 mg PO aspirin - Repeat troponin elevated at 289. Discussed case with barrel drainer on-call, Dr. Aguillon, at 19:10. He recommends admission to medicine for troponin trending and monitoring. He does not think the patient needs heparin at this point. - Discussion was had with human services case manager about patient's case and need for admission - Hospitalist consulted for admission - Patient admitted to [facility] Hospitalist service for further evaluation and management. ASSESSMENT AND PLAN: Diagnosis: NSTEMI; fall from standing; acute pain of left wrist; facial hematoma; hypomagnesemia; acute hypokalemia Plan: admit Past Med/Surg History Problem List (Updated 04/13/24 @ 18:21 by Estella Schmidt MD) Acute pain of left wrist (Acute) Acute hypokalemia (Acute) Hypomagnesemia (Acute) Facial hematoma (Acute) Fall from standing (Acute) Non-ST elevation AK (NSTEMI) (Acute) Osteoarthritis of right knee Contusion of hand, left Synovitis of wrist Tendinitis of right rotator cuff Trigger thumb of right hand Degenerative disc disease, lumbar Greater trochanteric bursitis of left hip Shoulder pain, left Sprain of foot, left Carpal tunnel syndrome of left wrist Cervical spondylosis Osteoarthritis of left shoulder Arthritis of carpometacarpal (CMC) joint of both thumbs Mitral valve prolapse (Chronic) HTN (hypertension) (Acute 04/06/14) Bradyarrhythmia (Acute 04/08/14) Glaucoma (Chronic) Sjogren's syndrome (Chronic) Mitral valve regurgitation (Chronic) Adjustment disorder with depressed mood (Chronic) GERD (gastroesophageal reflux disease) (Chronic) PVCs (premature ventricular contractions) (Chronic) History of PSVT (paroxysmal supraventricular tachycardia) (Chronic) Carotid artery disease (Chronic) Dyslipidemia (Chronic) Irritable bowel syndrome (IBS) (Chronic) Osteoarthritis of hip Medical History Adjustment disorder with depressed mood Carotid artery disease Dyslipidemia GERD (gastroesophageal reflux disease) History of PSVT (paroxysmal supraventricular tachycardia) HTN (hypertension) (04/06/14) Irritable bowel syndrome Mitral valve prolapse PVCs (premature ventricular contractions) Surgical History H/O arthroscopic knee surgery H/O eye surgery History of tubal ligation Hx of appendectomy Previous section S/P rotator cuff repair Family History Father Bladder cancer Social History Smoking Status: Never smoker Preferred Language: Persian marital status: / Feels Safe at Home: Yes Allergies Allergies Allergy/AdvReac Type Severity Reaction Status Date / Time Sulfa (Sulfonamide Allergy Mild rash Verified 04/13/24 18:39 Antibiotics) JAMAAL Inhibitors AdvReac Unknown COUGH Unverified 04/13/24 18:39 morphine AdvReac Unknown N/V per Unverified 04/13/24 18:39 cardio note- tolerates IV morphine not PO oxycodone AdvReac Unknown upset Unverified 04/13/24 18:39 stomach/vomiting sulindac AdvReac Unknown NAUSEA Unverified 04/13/24 18:39 VOMITING ezetimibe [From Zetia] AdvReac Verified 04/13/24 18:39 Home Meds Home Medications Medication Instructions Recorded Confirmed aspirin 81 mg tablet,delayed 81 mg PO DAILY 04/16/18 04/13/24 release atenolol 50 mg tablet 50 mg PO BID 04/16/18 04/13/24 cholecalciferol (vitamin D3) 25 1,000 units PO DAILY 04/16/18 04/13/24 mcg (1,000 unit) tablet (Vitamin D3) fluticasone propionate 50 2 spray intranasal DAILY PRN 04/16/18 04/13/24 mcg/actuation nasal Allergy Symptoms spray,suspension (Flonase Allergy Relief) losartan 100 mg tablet 100 mg PO QAM 04/16/18 04/13/24 magnesium oxide 400 mg (241.3 mg 400 mg PO DAILY 04/16/18 04/13/24 magnesium) tablet paroxetine HCl 10 mg tablet 10 mg PO QAM 04/16/18 04/13/24 pravastatin 10 mg tablet 10 mg PO HS 04/16/18 04/13/24 pantoprazole 40 mg tablet,delayed 40 mg PO DAILY 01/19/19 04/13/24 release (Protonix) amlodipine 5 mg tablet 5 mg PO DAILY 09/21/19 04/13/24 omega-3 fatty acids [Fish Oil] 1 tab PO DAILY 09/21/19 04/13/24 dorzolamide 2 % eye drops 1 drp OPL BID 04/13/24 04/13/24 latanoprost 0.005 % eye drops 1 drp OPL PM 04/13/24 04/13/24 Results & Data (ED) Vital Signs Vital Signs - 24 hr 04/13/24 15:53 04/13/24 16:11 04/13/24 16:36 Temperature Source Temporal Artery Scan Pulse Rate 73 65 Pulse Rate [Apical] 67 Pulse Rhythm Pulse Rhythm [Apical] Regular Pulse Strength [Apical] Normal Respiratory Rate 18 22 Respiratory Effort / Characteristics Non-Labored Spontaneous Non-Labored Respiratory Depth Normal Normal Respiratory Pattern Regular Blood Pressure 205/116 H Blood Pressure [Right Arm] 158/61 H Blood Pressure Mean 145 Blood Pressure Mean [Right Arm] 93 Blood Pressure Position Sitting Blood Pressure Position [Right Arm] Lying Pulse Oximetry 94 97 Oxygen Delivery Method Room Air Room Air Sepsis Recent Fever Within 48 Hours No Sepsis New/Unexplained Change in Mental Status No Sepsis Action Taken by Nursing No Action Required 04/13/24 17:31 Temperature Source Pulse Rate 63 Pulse Rate [Apical] Pulse Rhythm Regular Pulse Rhythm [Apical] Pulse Strength [Apical] Respiratory Rate 22 Respiratory Effort / Characteristics Respiratory Depth Respiratory Pattern Blood Pressure Blood Pressure [Right Arm] Blood Pressure Mean Blood Pressure Mean [Right Arm] Blood Pressure Position Blood Pressure Position [Right Arm] Pulse Oximetry 98 Oxygen Delivery Method Room Air Sepsis Recent Fever Within 48 Hours Sepsis New/Unexplained Change in Mental Status Sepsis Action Taken by Nursing Laboratory Data 04/13/24 17:17 04/13/24 16:21 Lab Results 04/13/24 04/13/24 Range/Units 16:21 17:17 WBC Cancelled 6.66 RBC Cancelled 3.75 L Hgb Cancelled 12.4 Hct Cancelled 36.6 L MCV Cancelled 97.6 MCH Cancelled 33.1 MCHC Cancelled 33.9 RDW Std Deviation Cancelled 46.5 H RDW Coeff of [place] Cancelled 13.0 Plt Count Cancelled 197 MPV Cancelled 9.8 Immature Gran % (Auto) Cancelled 0.5 Neut % (Auto) Cancelled 62.1 Lymph % (Auto) Cancelled 25.7 [place] % (Auto) Cancelled 9.5 Eos % (Auto) Cancelled 1.7 Baso % (Auto) Cancelled 0.5 Neut # (Auto) Cancelled 4.15 Lymph # (Auto) Cancelled 1.71 [place] # (Auto) Cancelled 0.63 H Eos # (Auto) Cancelled 0.11 Baso # (Auto) Cancelled 0.03 Immature Gran # (Auto) Cancelled 0.03 Absolute Nucleated RBC Cancelled Nucleated RBC % (auto) Cancelled Neutrophils % (Manual) Cancelled Band Neutrophils % Cancelled Lymphocytes % (Manual) Cancelled Prolymphocyte % Cancelled Reactive Lymphs % (Man) Cancelled Monocytes % (Manual) Cancelled Eosinophils % (Manual) Cancelled Basophils % (Manual) Cancelled Metamyelocytes % (Man) Cancelled Myelocytes % (Man) Cancelled Promyelocytes % (Man) Cancelled Blast Cells % (Manual) Cancelled Plasma Cell % (Manual) Cancelled Other Cells % Cancelled Nucleated RBC % Cancelled Neutrophils # (Manual) Cancelled Band Neutrophils # Cancelled Total Absolute Neuts Cancelled Lymphocytes # (Manual) Cancelled Prolymphocyte # Cancelled Reactive Lymphs # Cancelled Total Abs Lymphocytes Cancelled Monocytes # (Manual) Cancelled Eosinophils # (Manual) Cancelled Basophils # (Manual) Cancelled Metamyelocytes # (Man) Cancelled Myelocytes # (Manual) Cancelled Promyelocytes # (Man) Cancelled Blast Cells # (Man) Cancelled Plasma Cell # (Manual) Cancelled Other Cells # Cancelled Nucleated RBCs # (Man) Cancelled Hypersegmented Neuts Cancelled Hyposegmented Neuts Cancelled Hypogranular Neuts Cancelled Large Granular Lymphs Cancelled # Lrg Granular Lymphs Cancelled Hairy Cells Cancelled Smudge Cells Cancelled Toxic Granulation Cancelled Toxic Vacuolation Cancelled Dohle Bodies Cancelled Conor Rods Cancelled Platelet Estimate Cancelled Hypogranular Platelets Cancelled Giant Platelets Cancelled Platelet Satelliting Cancelled RBC Morphology Cancelled Polychromasia Cancelled Hypochromasia Cancelled Poikilocytosis Cancelled Basophilic Stippling Cancelled Anisocytosis Cancelled Microcytosis Cancelled Macrocytosis Cancelled Spherocytes Cancelled Pappenheimer Bodies Cancelled Sickle Cells Cancelled Target Cells Cancelled Tear Drop Cells Cancelled Ovalocytes Cancelled Stomatocytes Cancelled [place] Bodies Cancelled Echinocytes Cancelled Acanthocytes (Spur) Cancelled Rouleaux Cancelled RBC Agglutinates Cancelled Schistocytes Cancelled Sezary Cell Cancelled Sodium 137 (136-145) mmol/L Potassium 3.4 L (3.5-5.1) mmol/L Chloride 103 (98-107) mmol/L Carbon Dioxide 23 (21-32) mmol/L Anion Gap 11 (3-11) BUN 11 (6-23) mg/dl Creatinine 0.80 (0.6-1.2) mg/dl Est Cr Clr Drug Dosing 51.1 ml/min Est GFR ( Amer) 77.9 ml/min Est GFR (Non-Af Amer) 67.2 ml/min BUN/Creatinine Ratio 13.8 (10-20) Glucose 112 H (70-99(Fasting)) mg/dl Calcium 9.7 (8.6-10.3) mg/dl Magnesium 1.6 L (1.7-2.4) mg/dl Total Bilirubin 0.6 (0.2-1.0) mg/dl AST 21 (13-39) U/L ALT 12 (7-52) U/L Alkaline Phosphatase 69 (34-104) U/L Troponin I High Sens 70.0 H* 289.4 H* D (0-14) pg/ml Total Protein 6.9 (6.0-8.3) gm/dl Albumin 4.4 (3.4-5.0) gm/dl Globulin 2.5 (2.5-4.0) gm/dl Albumin/Globulin Ratio 1.8 (0.9-2) Blood Parasites ID Cancelled Administered Medications Discontinued Medications Aspirin (Aspirin Chew 324 Mg) 324 mg PO NOW STA Stop: 04/13/24 18:19 Last Admin: 04/13/24 18:23 Dose: 324 mg Documented By: DIANA Magnesium Sulfate/Dextrose (Magnesium Sulfate / D5w) 1 gm in 100 mls @ 100 mls/hr IV NOW STA Stop: 04/13/24 18:20 Last Infusion: 04/13/24 18:40 Dose: Infused Documented By: Admin: 04/13/24 17:39 Dose: 100 mls/hr Documented By: [facility] Imaging Data Radiologist's Impression: Cervical Spine CT 04/13/24 16:16 CT SCAN OF THE CERVICAL SPINE CLINICAL HISTORY: Fall. COMPARISON STUDY: No priors. TECHNIQUE: CT scan of the cervical spine is performed from the skull base to the upper thoracic spine. Images are reviewed in the axial, sagittal, and coronal planes. IV contrast was not administered for this examination. A dose lowering technique was utilized adhering to the principles of ALARA. FINDINGS: Skeletal structures: The skeletal structures are osteopenic. There is no evidence of fracture or subluxation involving the cervical spine. Vertebral body height and alignment are maintained. There is straightening of the cervical lordosis with mild reversal centered at C5. Anterior osteophytes are seen throughout. The odontoid process and lateral masses are intact. The atlantoaxial articulation is preserved noting productive degenerative change. The spinous processes appear intact. There is mild to moderate multilevel cervical spondylosis. Uncovertebral and facet arthropathy contribute to neural foraminal narrowing at several levels. There is chronic deformity of the left clavicle. Intervertebral discs: There is severe disc space narrowing with endplate sclerosis at C5-C6. Moderate disc space narrowing is seen at C4-C5 and C6-C7. Central canal: Posterior disc osteophyte complexes at C4-C5, C5-C6, and C6-C7 may contribute to moderate compromise of the central canal. Soft tissues: The prevertebral and paraspinous soft tissues are within normal limits. There is atherosclerotic calcification of the carotid bulbs. Calvarium: The visualized calvarium at the skull base appears intact. Brain parenchyma: Partially visualized brain parenchyma at the skull base is within normal limits. Sinuses and mastoids: There is mild mucosal thickening within the maxillary antra. Trace because of thickening is seen in the ethmoid sinuses. There are small mastoid effusions. Lung apices: Clear as visualized. IMPRESSION: 1. There is no evidence of fracture or subluxation involving the cervical spine. 2. Osteopenia and spondylotic change as above. ACT 112: Negative or not required by law. Electronically signed by: Beto Coronado M.D. 04/13/2024 5:[address] 04/13/24 16:16 CT head/brain wo con CLINICAL HISTORY: 83 years-old Female with fall from standing; L eyebrow hematoma. Acute head trauma status post fall TECHNIQUE: Multiple axial CT images of the head were obtained without contrast. A dose lowering technique was utilized adhering to the principles of ALARA. CT DOSE: 1009.1 mGy.cm COMPARISON: CT cervical spine of same day FINDINGS: No acute intracranial hemorrhage, midline shift, intracranial mass, hydrocephalus, territorial ischemia or abnormal extra-axial collection. Involutional changes with chronic microvascular ischemic disease. The calvarium is intact. Moderate-sized left periorbital contusion. Trace mastoid effusions. Paranasal sinuses are clear. IMPRESSION: 1. No acute intracranial abnormality or calvarial fracture. 2. Left periorbital contusion. ACT 112: Negative or not required by law. The above report was generated using voice recognition software. It may contain grammatical, syntax or spelling errors. Electronically signed by: Robert Brown M.D. 04/13/2024 5:14 PM Wrist X-Ray 04/13/24 16:25 XR wrist LT min 3V routine HISTORY: 83 years-old Female L wrist pain s/p fall acute pain of the left wrist status post COMPARISON: Radiographs 03/10/2014 TECHNIQUE: 4 views of the left wrist FINDINGS: Widening of the scapholunate interval. Severe radiocarpal, and first carpometacarpal osteoarthritis. Demineralized appearance of the bones. No acute fracture, dislocation or osseous erosion. Chondrocalcinosis of the TFCC. Lucency of the radial styloid noted on image 4. IMPRESSION: 1. No acute displaced fracture or dislocation. 2. [place] to the radial styloid should be correlated clinically to exclude an age-indeterminate nondisplaced fracture. 3. Osteoarthritis with SLAC wrist. ACT 112: Negative or not required by law. The above report was generated using voice recognition software. It may contain grammatical, syntax or spelling errors. Electronically signed by: Robert Brown M.D. 04/13/2024 4:52 PM Discharge Plan Visit Data Chief Complaint: Fall Stated Complaint: FALL, LACERATION TO L EYEBROW, L KNEE, L WRIST ED Provider: Estella Schmidt Discharge Problem: Non-ST elevation AK (NSTEMI), Fall from standing, Facial hematoma, Hypomagnesemia, Acute hypokalemia, Acute pain of left wrist Forms Stand Alone Forms: [employer] Prescriptions Prescriptions: No Action amlodipine 5 mg tablet 5 mg PO DAILY omega-3 fatty acids 1 tab PO DAILY paroxetine HCl 10 mg tablet 10 mg PO QAM pravastatin 10 mg tablet 10 mg PO HS losartan 100 mg tablet 100 mg PO QAM atenolol 50 mg tablet 50 mg PO BID aspirin 81 mg Tablet,Delayed Release (Dr/Ec) 81 mg PO DAILY fluticasone propionate [Flonase Allergy Relief] 50 mcg/actuation [place],Suspension 2 spray INTRANASAL DAILY PRN (Reason: Allergy Symptoms) cholecalciferol (vitamin D3) [Vitamin D3] 1,000 unit Tablet 1,000 units PO DAILY magnesium oxide 400 mg (241.3 mg magnesium) Tablet 400 mg PO DAILY pantoprazole [Protonix] 40 mg tablet,delayed release (DR/EC) 40 mg PO DAILY latanoprost 0.005 % drops 1 drp OPL PM dorzolamide 2 % drops 1 drp OPL BID Referrals Referrals: Shiv Spring MD [Primary Care Provider] -
--- NOTE | 2024-04-13 16:54 | XRay Report ---
XR wrist LT min 3V routine HISTORY: 83 years-old Female L wrist pain s/p fall acute pain of the left wrist status post COMPARISON: Radiographs 03/10/2014 TECHNIQUE: 4 views of the left wrist FINDINGS: Widening of the scapholunate interval. Severe radiocarpal, and first carpometacarpal osteoarthritis. Demineralized appearance of the bones. No acute fracture, dislocation or osseous erosion. Chondrocalc inosis of the TFCC. Lucency of the radial styloid noted on image 4. IMPRESSION: 1. No acute displaced fracture or dislocation. 2. [place] to the radial styloid should be correlated clinically to exclude an age-indeterminate nondi splaced fracture. 3. Osteoarthritis with SLAC wrist. ACT 112: Negative or not required by law. The above report was generated using voice recognition software. It may contain grammatical, syntax o r spelling errors. Electronically signed by: Robert Brown M.D. 04/13/2024 4:52 PM
[2024-04-13 17:07] LABS: Albumin Globulin Ratio 1.8 (0.9-2); Albumin Level 4.4 gm/dl (3.4-5.0); BUN Creatinine Ratio 13.8 (10-20); Bilirubin,Total 0.6 mg/dl (0.2-1.0); Calcium 9.7 mg/dl (8.6-10.3); Creatinine Clr Calc Pharmacy 51.1 ml/min; Est GFR (African American) 77.9 ml/min; Est GFR (Non-African American) 67.2 ml/min; Globulin 2.5 gm/dl (2.5-4.0); Magnesium 1.6 mg/dl (1.7-2.4); Potassium 3.4 mmol/L (3.5-5.1); Total Protein 6.9 gm/dl (6.0-8.3)
--- NOTE | 2024-04-13 17:16 | CT Scan Report ---
CT head/brain wo con CLINICAL HISTORY: 83 years-old Female with fall from standing; L eyebrow hematoma. Acute head trauma status post fall TECHNIQUE: Multiple axial CT images of the head were obtained without contrast. A dose lowering tech nique was utilized adhering to the principles of ALARA. CT DOSE: 1009.1 mGy.cm COMPARISON: CT cervical spine of same day FINDINGS: No acute intracranial hemorrhage, midline shift, intracranial mass, hydrocephalus, territorial ischem ia or abnormal extra-axial collection. Involutional changes with chronic microvascular ischemic disea se. The calvarium is intact. Moderate-sized left periorbital contusion. Trace mastoid effusions. Paranasa l sinuses are clear. IMPRESSION: 1. No acute intracranial abnormality or calvarial fracture. 2. Left periorbital contusion. ACT 112: Negative or not required by law. The above report was generated using voice recognition software. It may contain grammatical, syntax o r spelling errors. Electronically signed by: Robert Brown M.D. 04/13/2024 5:14 PM
[2024-04-13 17:34] LABS: Basophils # (auto) 0.03 K/uL (0.00-0.20); Basophils % (auto) 0.5 %; Eosinophils # (auto) 0.11 K/uL (0.00-0.50); Eosinophils % (auto) 1.7 %; Hematocrit (blood only) 36.6 % (37.0-47.0); Hemoglobin 12.4 g/dl (12.0-16.0); Immature Granulocytes # (auto) 0.03 K/uL (0.01-0.20); Immature Granulocytes % (auto) 0.5 %; Lymphocytes # (auto) 1.71 K/uL (1.20-3.40); Lymphocytes % (auto) 25.7 %; Mean Corpuscular Hemoglobin 33.1 pg (25.0-34.0); Mean Corpuscular Hgb Conc 33.9 g/dL (32.0-36.0); Mean Corpuscular Volume 97.6 fL (80.0-100.0); Mean Platelet Volume 9.8 fL (9.4-12.4); Monocytes # (auto) 0.63 K/uL (0.11-0.59); Monocytes % (auto) 9.5 %; Neutrophils # (auto) 4.15 K/uL (1.40-6.50); Neutrophils % (auto) 62.1 %; Platelet Count 197 K/uL (130-400); RDW Standard Deviation 46.5 fL (36.4-46.3); Red Blood Count 3.75 M/uL (4.20-5.40); White Blood Count 6.66 K/ul (4.8-10.8)
[2024-04-13] MEDS: MAGNESIUM SULFATE / D5W 1 GM/100 ML BAG IV STA (17:39)
--- NOTE | 2024-04-13 18:00 | CT Scan Report ---
CT SCAN OF THE CERVICAL SPINE CLINICAL HISTORY: Fall. COMPARISON STUDY: No priors. TECHNIQUE: CT scan of the cervical spine is performed from the skull base to the upper thoracic spine . Images are reviewed in the axial, sagittal, and coronal planes. IV contrast was not administered fo r this examination. A dose lowering technique was utilized adhering to the principles of ALARA. FINDINGS: Skeletal structures: The skeletal structures are osteopenic. There is no evidence of fracture or subl uxation involving the cervical spine. Vertebral body height and alignment are maintained. There is st raightening of the cervical lordosis with mild reversal centered at C5. Anterior osteophytes are seen throughout. The odontoid process and lateral masses are intact. The atlantoaxial articulation is pre served noting productive degenerative change. The spinous processes appear intact. There is mild to m oderate multilevel cervical spondylosis. Uncovertebral and facet arthropathy contribute to neural for aminal narrowing at several levels. There is chronic deformity of the left clavicle. Intervertebral discs: There is severe disc space narrowing with endplate sclerosis at C5-C6. Moderate disc space narrowing is seen at C4-C5 and C6-C7. Central canal: Posterior disc osteophyte complexes at C4-C5, C5-C6, and C6-C7 may contribute to moder ate compromise of the central canal. Soft tissues: The prevertebral and paraspinous soft tissues are within normal limits. There is athero sclerotic calcification of the carotid bulbs. Calvarium: The visualized calvarium at the skull base appears intact. Brain parenchyma: Partially visualized brain parenchyma at the skull base is within normal limits. Sinuses and mastoids: There is mild mucosal thickening within the maxillary antra. Trace because of t hickening is seen in the ethmoid sinuses. There are small mastoid effusions. Lung apices: Clear as visualized. IMPRESSION: 1. There is no evidence of fracture or subluxation involving the cervical spine. 2. Osteopenia and spondylotic change as above. ACT 112: Negative or not required by law. Electronically signed by: Beto Coronado M.D. 04/13/2024 5:58 PM
[2024-04-13] MEDS: ASPIRIN CHEW 324 MG PO STA (18:23)
--- NOTE | 2024-04-13 18:40 | History & Physical Report ---
Date of Service April 13, 2024 Assessment & Plan (1) Fall from standing: (2) Facial hematoma: (3) Acute pain of left wrist: Plan: Patient is 83 year old female with PMH HTN, dyslipidemia, PSVT, PVCs, MATT stenosis CKD III, anxiety presented to ER with c/o fall missing 2 steps. Denies LOC. C/O pain to left forehead, left wrist, left knee and left ankle. CT head: No acute intracranial abnormality or calvarial fracture. Left periorbital contusion. CT c-spine: There is no evidence of fracture or subluxation involving the cervical spine. Left wrist xray: No acute displaced fracture or dislocation. Lucent to the radial styloid should be correlated clinically to exclude an age-indeterminate nondisplaced fracture. 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 DDx NSTEMI Monitor Vitals Repeat EKG in am Will trend troponin Echo Lipid panel in am, Will continue statin. In past history statin intolerance Continue aspirin, atenolol Nitro prn CP and repeat EKG for CP Cardiology consult (5) Hypomagnesemia: Plan: Magnesium: 1.6 In ER given 1GM magnesium sulfate Continue home magnesium oxide Magnesium lab in am (6) Acute hypokalemia: Plan: K: 3.4 Replace and monitor (7) HTN (hypertension): Plan: Continue amlodipine, atenolol, losartan (8) Dyslipidemia: Plan: Continue pravastatin (9) CKD (chronic kidney disease), stage III: Plan: Cr: 0.8. Was 0.8 with GFR: 68 in 01/16/24 Monitor renal functions (10) Anxiety: Plan: Continue paroxetine DVT Prophylaxis SQ Heparin Admit PCU Full Code as per discussion with patient however reports if poor prognosis would not want continued life support Follows with Dr Spring for routine care Pt was seen and care coordinated with Dr Adkins. See addendum I spent a total of 78 minutes reviewing notes, outpatient records, labs, medication, coordinating, documenting and providing care for this patient excluding time spent in the performance of separately billed services. History of Present Illness Chief Complaint: Fall Primary Care Provider: Shiv Spring MD Patient is 83 year old female with PMH HTN, dyslipidemia, PSVT, PVCs, MATT stenosis CKD III, anxiety presented to ER with c/o fall. Patient states today was walking and looked around and caused her to miss 2 steps causing her to fall and hit left forehead and states has pain to left wrist and left knee. She denies LOC. Denies dizziness, palpitations, CP, or SOB prior to fall. She was able to get herself up and she drove to ER. She complains of pain to left forehead, pain to left wrist, left anterior knee as well as left ankle. Denies neck pain, back pain, shoulder or elbow pain, abdominal pain, hip pain. Denies pain to right upper or right lower extremity. She denies any CP or SOB or recent exertional CP or SOB. States in summer tripped over a hose and fell but states has not been having other recurrent falls and denies any dizziness, SOB, or CP prior to falls. Denies fever/chills, diaphoresis, N/V/D/C, MOE, dizziness, syncope, vision changes, neck pain, CP, SOB, orthopnea, palpitations, cough, sore throat, rhinorrhea, abdominal pain, paresthesias, weakness, extremity weakness, extremity edema, rashes, urinary symptoms. 03/05/2024 Echo: The LV wall thickness is normal. The left ventricular wall motion is normal. The qualitative LV ejection fraction is 55-59% (normal). The left atrium is moderately enlarged. The left ventricular diastolic function is mildly abnormal (grade I). Moderate aortic valve sclerosis is present. Aortic stenosis is absent. Mild mitral regurgitation is present. The estimated pulmonary artery systolic pressure is 38 mm Hg (upper limit of normal to mildly elevated). 03/26/2023 carotid duplex: Less than 50% stenosis of right internal carotid artery. Less than 50% stenosis left internal carotid artery Allergies Allergy/AdvReac Type Severity Reaction Status Date / Time Sulfa (Sulfonamide Allergy Mild rash Verified 04/13/24 18:39 Antibiotics) JAMAAL Inhibitors AdvReac Unknown COUGH Unverified 04/13/24 18:39 morphine AdvReac Unknown N/V per Unverified 04/13/24 18:39 cardio note- tolerates IV morphine not PO oxycodone AdvReac Unknown upset Unverified 04/13/24 18:39 stomach/vomiting sulindac AdvReac Unknown NAUSEA Unverified 04/13/24 18:39 VOMITING ezetimibe [From Zetia] AdvReac Verified 04/13/24 18:39 Home Medications Medication Instructions Recorded Confirmed Type aspirin 81 mg tablet,delayed 81 mg PO DAILY 04/16/18 04/13/24 History release atenolol 50 mg tablet 50 mg PO BID 04/16/18 04/13/24 History cholecalciferol (vitamin D3) 25 1,000 units PO DAILY 04/16/18 04/13/24 History mcg (1,000 unit) tablet (Vitamin D3) fluticasone propionate 50 2 spray intranasal DAILY PRN 04/16/18 04/13/24 History mcg/actuation nasal Allergy Symptoms spray,suspension (Flonase Allergy Relief) losartan 100 mg tablet 100 mg PO QAM 04/16/18 04/13/24 History magnesium oxide 400 mg (241.3 mg 400 mg PO DAILY 04/16/18 04/13/24 History magnesium) tablet paroxetine HCl 10 mg tablet 10 mg PO QAM 04/16/18 04/13/24 History pravastatin 10 mg tablet 10 mg PO HS 04/16/18 04/13/24 History pantoprazole 40 mg tablet,delayed 40 mg PO DAILY 01/19/19 04/13/24 History release (Protonix) amlodipine 5 mg tablet 5 mg PO DAILY 09/21/19 04/13/24 History omega-3 fatty acids [Fish Oil] 1 tab PO DAILY 09/21/19 04/13/24 History dorzolamide 2 % eye drops 1 drp OPL BID 04/13/24 04/13/24 History latanoprost 0.005 % eye drops 1 drp OPL PM 04/13/24 04/13/24 History Past Med/Surg History Problem List (Updated 04/13/24 @ 19:59 by Tracy Lima PA-C) Anxiety CKD (chronic kidney disease), stage III Elevated troponin Acute pain of left wrist (Acute) Acute hypokalemia (Acute) Hypomagnesemia (Acute) Facial hematoma (Acute) Fall from standing (Acute) Non-ST elevation NE (NSTEMI) (Acute) Osteoarthritis of right knee Contusion of hand, left Synovitis of wrist Tendinitis of right rotator cuff Trigger thumb of right hand Degenerative disc disease, lumbar Greater trochanteric bursitis of left hip Shoulder pain, left Sprain of foot, left Carpal tunnel syndrome of left wrist Cervical spondylosis Osteoarthritis of left shoulder Arthritis of carpometacarpal (CMC) joint of both thumbs Mitral valve prolapse (Chronic) HTN (hypertension) (Acute 04/06/14) Bradyarrhythmia (Acute 04/08/14) Glaucoma (Chronic) Sjogren's syndrome (Chronic) Mitral valve regurgitation (Chronic) Adjustment disorder with depressed mood (Chronic) GERD (gastroesophageal reflux disease) (Chronic) PVCs (premature ventricular contractions) (Chronic) History of PSVT (paroxysmal supraventricular tachycardia) (Chronic) Carotid artery disease (Chronic) Dyslipidemia (Chronic) Irritable bowel syndrome (IBS) (Chronic) Osteoarthritis of hip Medical History Irritable bowel syndrome Surgical History History of tubal ligation H/O eye surgery S/P rotator cuff repair H/O arthroscopic knee surgery Hx of appendectomy Previous section Family History Father Bladder cancer Social History (Updated 04/13/24 @ 19:54 by Tracy Lima PA-C) Smoking Status: Former smoker Tobacco Type: Cigarettes Smoking End Date: approx 1964; Hx Alcohol Use: Yes Alcohol type: wine Hx Substance Use: No Preferred Language: Maltese Communication Ability: Effective Pad Machine Offbearer Required: No Beliefs That Will Affect Care: Pent[employer]ism marital status: / Current Living Situation: Alone Feels Safe at Home: Yes Safety Concerns: Feels Safe At This Time Assistive Devices: Glasses Review of Systems Review of Systems: All systems reviewed & are unremarkable except as noted in HPI & below Physical Exam Physical Exam: General: no distress, overweight elderly female Head: normocephalic, +ecchymosis and edema to left forehead and left orbit, superficial laceration to left forehead with edges approximated and no active bleeding Eyes: PERRL, EOM's intact, conjunctiva non-injected, anicteric ENT: normal inspection external ears, nose, mucous membranes moist Neck: supple, trachea midline, non-tender to palpation Lungs: clear, no respiratory distress, no wheezing/rhonchi/rales CV: RRR, no JVD, no pretibial edema Abd: normal BS, soft, non-tender Ext: no cyanosis, no calf tenderness; RUE: Non tender and ROM intact. RLE: non- tender and ROM intact. LUE: shoulder and elbow non-tender with ROM intact, wrist with diffuse tenderness to palpation without edema or ecchymosis, able to flex and extend with tenderness. sensation to light touch intact. LLE: hip non-tender to palpation, +tenderness to palpation left anterior knee and tenderness with flexion. Ankle without ecchymosis and currently non-tender to palpation however reports was tender for other provider, sensation to light touch intact Neuro: A&O x 3, no focal deficits noted, normal affect Skin: warm, dry Results & Data Results & Data Vital Signs (Past 12 Hours) Vital Signs Pulse Pulse Resp BP BP Pulse Ox O2 Del Method 04/13/24 17:31 63 22 98 Room Air 04/13/24 16:36 65 04/13/24 16:11 67 22 158/61 H 97 Room Air 04/13/24 15:53 73 18 205/116 H 94 Room Air Laboratory Results Short CBC 04/13/24 04/13/24 Range/Units 16:21 17:17 WBC Cancelled 6.66 Hgb Cancelled 12.4 Hct Cancelled 36.6 L Plt Count Cancelled 197 BMP 04/13/24 16:21 Sodium 137 Potassium 3.4 L Chloride 103 Carbon Dioxide 23 BUN 11 Creatinine 0.80 Glucose 112 H Calcium 9.7 Liver Function 04/13/24 Range/Units 16:21 Total Bilirubin 0.6 (0.2-1.0) mg/dl AST 21 (13-39) U/L ALT 12 (7-52) U/L Alkaline Phosphatase 69 (34-104) U/L Albumin 4.4 (3.4-5.0) gm/dl Diagnostic Findings Cervical Spine CT 04/13/24 16:16 CT SCAN OF THE CERVICAL SPINE CLINICAL HISTORY: Fall. COMPARISON STUDY: No priors. TECHNIQUE: CT scan of the cervical spine is performed from the skull base to the upper thoracic spine. Images are reviewed in the axial, sagittal, and coronal planes. IV contrast was not administered for this examination. A dose lowering technique was utilized adhering to the principles of ALARA. FINDINGS: Skeletal structures: The skeletal structures are osteopenic. There is no evide nce of fracture or subluxation involving the cervical spine. Vertebral body height and alignment are maintained. There is straightening of the cervical lordosis with mild reversal centered at C5. Anterior osteophytes are seen throughout. The odontoid process and lateral masses are intact. The atlantoaxial articulation is preserved noting productive degenerative change. The spinous processes appear intact. There is mild to moderate multilevel cervical spondylosis. Uncovertebral and facet arthropathy contribute to neural foraminal narrowing at several levels. There is chronic deformity of the left clavicle. Intervertebral discs: There is severe disc space narrowing with endplate sclerosis at C5-C6. Moderate disc space narrowing is seen at C4-C5 and C6-C7. Central canal: Posterior disc osteophyte complexes at C4-C5, C5-C6, and C6-C7 may contribute to moderate compromise of the central canal. Soft tissues: The prevertebral and paraspinous soft tissues are within normal limits. There is atherosclerotic calcification of the carotid bulbs. Calvarium: The visualized calvarium at the skull base appears intact. Brain parenchyma: Partially visualized brain parenchyma at the skull base is within normal limits. Sinuses and mastoids: There is mild mucosal thickening within the maxillary antra. Trace because of thickening is seen in the ethmoid sinuses. There are small mastoid effusions. Lung apices: Clear as visualized. IMPRESSION: 1. There is no evidence of fracture or subluxation involving the cervical spine. 2. Osteopenia and spondylotic change as above. ACT 112: Negative or not required by law. Electronically signed by: Beto Coronado M.D. 04/13/2024 5:[address] 04/13/24 16:16 CT head/brain wo con CLINICAL HISTORY: 83 years-old Female with fall from standing; L eyebrow hematoma. Acute head trauma status post fall TECHNIQUE: Multiple axial CT images of the head were obtained without contrast. A dose lowering technique was utilized adhering to the principles of ALARA. CT DOSE: 1009.1 mGy.cm COMPARISON: CT cervical spine of same day FINDINGS: No acute intracranial hemorrhage, midline shift, intracranial mass, hydrocephalus, territorial ischemia or abnormal extra-axial collection. Involutional changes with chronic microvascular ischemic disease. The calvarium is intact. Moderate-sized left periorbital contusion. Trace mastoid effusions. Paranasal sinuses are clear. IMPRESSION: 1. No acute intracranial abnormality or calvarial fracture. 2. Left periorbital contusion. ACT 112: Negative or not required by law. The above report was generated using voice recognition software. It may contain grammatical, syntax or spelling errors. Electronically signed by: Robert Brown M.D. 04/13/2024 5:14 PM Wrist X-Ray 04/13/24 16:25 XR wrist LT min 3V routine HISTORY: 83 years-old Female L wrist pain s/p fall acute pain of the left wrist status post COMPARISON: Radiographs 03/10/2014 TECHNIQUE: 4 views of the left wrist FINDINGS: Widening of the scapholunate interval. Severe radiocarpal, and first carpometacarpal osteoarthritis. Demineralized appearance of the bones. No acute fracture, dislocation or osseous erosion. Chondrocalcinosis of the TFCC. Lucency of the radial styloid noted on image 4. IMPRESSION: 1. No acute displaced fracture or dislocation. 2. [place] to the radial styloid should be correlated clinically to exclude an age-indeterminate nondisplaced fracture. 3. Osteoarthritis with SLAC wrist. ACT 112: Negative or not required by law. The above report was generated using voice recognition software. It may contain grammatical, syntax or spelling errors. Electronically signed by: Robert Brown M.D. 04/13/2024 4:52 PM Supervising Physician Co-Signing Physician Notes Pt was seen and examined by myself, Maria Luisa Adkins MD on the day of service. Care was coordinated with Tracy Lima PA-C. 83-year-old female seen laying in bed resting comfortably with bruising above left eye. States that she was walking out of a building when she tripped and fell over some stairs. Stated that at the time of exam that her Left-sided pain was well-controlled. Noted bruising above her left eye without visual changes. Left ankle tender. Left wrist tender. Imaging of her left wrist, head CT, cervical spine all unremarkable without fractures. X-ray of her left ankle currently pending. Pain meds as needed. Syncope workup though it sounds like patient had a mechanical fall, however there is some concern for recurrent falls. orthostatic vitals added. Brain MRI pending. Incidentally noted that patient also had an elevated Trop that was trended and increased further significantly. Patient denies chest pain, EKG obtained. Regular rate and rhythm on exam. ACS rule out, consult cardiology given degree of sudden trop elevation with what seems like a small insult. CK pending, will give 1 L of fluids for possible rhabdo component. Otherwise as above. I spent a total [id number] coordinating, documenting, and providing care for this patient excluding time spent in the performance of separately billed services
[2024-04-13] MEDS: POTASSIUM CHLORIDE CRTAB 20 MEQ TABCR PO STA (20:00)
[2024-04-13] MEDS ORDERED: ONDANSETRON INJ 2 MG/ML 2 ML VIAL IV PRN (20:37)
[2024-04-13] MEDS ORDERED: FLUTICASONE PROPIONATE NA SPR 16 GM BTL NAE PRN (20:37)
[2024-04-13] MEDS ORDERED: POLYETHYLENE (MIRALAX) 17 GM PACK PO PRN (20:37)
[2024-04-13] MEDS ORDERED: NITROGLYCERIN SL 0.4 MG/TAB TAB SL PRN (20:37)
[2024-04-13] MEDS: ACETAMINOPHEN 500 MG TAB PO STA (20:40)
[2024-04-13] MEDS: LATANOPROST 0.005% OP SOLN 2.5 ML BTL OPL SCH (21:56)
[2024-04-13] MEDS: DORZOLAMIDE HCL 2% OPH SOLN 10 ML BTL OPL SCH (21:57)
[2024-04-13] MEDS: PRAVASTATIN SOD 10 MG TAB PO SCH (21:57)
[2024-04-13] MEDS: ATENOLOL 50 MG TABLET PO SCH (21:58)
[2024-04-13] MEDS: HEPARIN SOD 5,000 UNIT/0.5 ML VIAL SQ SCH (22:03)
[2024-04-13] MEDS: SODIUM CHLORIDE 0.9% 1,000 ML IV SCH (22:04)
[2024-04-13] MEDS: GADOBUTROL 65ML VIAL IV ONE (23:38)
--- NOTE | 2024-04-14 00:35 | Magnetic Resonance Report ---
Exam(s): MRI HEAD W/WO Contrast IV Amt: 9cc gadavist EXAM: MR Head Without and With Intravenous Contrast CLINICAL HISTORY: Reason for exam: syncope, recurrent falls. TECHNIQUE: Magnetic resonance images of the head/brain without and with intravenous contrast in multiple planes. CONTRAST: Patient received 9cc gadavist of IV contrast COMPARISON: Prior head CT from April 13, 2024. FINDINGS: Brain: Mild to moderate nonspecific white matter changes. The flow voids at the base of the right intact. No mass. No hemorrhage. No acute infarct. No evidence of abnormal enhancement. The dural venous sinuses are patent. Ventricles: Unremarkable. No ventriculomegaly. Bones/joints: Remote left lamina papyracea fracture deformity. No acute fracture. Sinuses: Chronic left maxillary and ethmoid sinusitis. No acute sinusitis. Mastoid air cells: There is a small amount of fluid on the left and moderate amount of fluid in the right mastoid air cells. No mastoid effusion. Orbits: Unremarkable as visualized. IMPRESSION: No evidence of acute intracranial pathology. Electronically signed by: Anat Gill MD 04/14/24 00:34 AM
[2024-04-14] MEDS: ACETAMINOPHEN 325 MG TAB PO PRN (01:49)
--- OUTSIDE RECORDS SUMMARY | 2024-04-14 05:39 | External Medical Summary ---
Author Name Unknown Address Unknown Organization [id number]:[facility] [place] [facility] [place] [facility] [address] [place] [id number] Laboratory Report Ordering Provider Test Date Status KING DORANTES 01/16/2024 14:17:02 Final Observation Date Value Abnormality Reference (Units ) Status BUN 01/16/2024 14:17:02 10 6-20 (mg/dL) Final Creatinine 01/16/2024 14:17:02 0.8 0.5-1.0 (mg/dL) Final Glomerular filtration rate/1.73 sq M.predicted [Volume Rate/Area] in Serum, Plasma or Blood by Creatinine-based formula (CKD-EPI) 01/16/2024 14:17:02 68 >=60 (mL/min) Final eGFR is calculated based on the CKD-EPI 2020 equation Sodium 01/16/2024 14:17:02 137 135-146 (m mol/L) Final Potassium 01/16/2024 14:17:02 4.2 3.5-5.1 (m mol/L) Final Cl 01/16/2024 14:17:02 102 98-107 (mm ol/L) Final CO2 01/16/2024 14:17:02 25 22-32 (mmo l/L) Final Anion gap 01/16/2024 14:17:02 10 7-15 (mmol /L) Final Glucose 01/16/2024 14:17:02 104 70-120 (mg /dL) Final Calcium 01/16/2024 14:17:02 9.7 8.4-10.2 ( mg/dL) Final Performing Location [facility] [place] [place] [address] [place] [address]
--- OUTSIDE RECORDS SUMMARY | 2024-04-14 05:39 | External Medical Summary | Summary of Care ---
Author Name Unknown Organization [facility] Address [address] [facility] [place] [address] Phone [phone] Care Team Providers Care Diesel Mechanic Helper Name Role Phone Shiv Spring MD Primary Care Provider [phone]- [phone] Reason for Visit * Reason Comments Follow Up Patient is here toda y for follow up visitPatient states no concerns Encounter Details Date Type Department Care Team (Late st Contact Info) Description 01/16/2024 1:20 PM EDT Office Visit [facility] [address] [place] [address] Shiv Spring MD [address] [place] [address] Dyslipidemia, goal LDL below 100*; HTN, GOAL BELOW 140/90; Stage 3a chronic kidney disease; CONNOR (generalized anxiety disorder) Allergies Active Allergy Reactions Criticality Noted Date Comments Rich Inhibitors Cough Low 04/21/2008 Morphine And Codeine Nausea/vomiting Low 04/27/1999 GI distress when patient takes PO. She can tolerate IV. Sulfa Antibiotics Rash Low 11/30/2010 Sulindac Nausea/vomiting Low 04/17/2002 Ezetimibe 03/13/2018 GI distress documented as of this encounter (statuses as of 02/03/2024) Medications Medication Sig Dispensed Refills Start Date End Date Status ASPIRIN 81 MG PO TABSIndications: HTN, goal to be determined one tab by mouth daily 34 Tab 5 04/10/2011 Active VITAMIN D3 1000 UNIT PO TABS one tablet by mouth daily Active Fish Oil-Coenzyme Q10 (FISH OIL PLUS CO Q-10) 1000-30 MG CAPS Take 1 Cap by mouth daily. 11/30/2014 Active fluticasone (FLONASE) 50 MCG/ACT nasal sprayIndications :Allergic rhinitis instill 2 sprays into each nostril once daily 1 Bottle 5 06/11/2017 Active Magnesium Oxide 400 MG CapsuleIndicatio ns:Hypomagnesemi a,PVCs (premature ventricular contractions) Take 1 Cap by mouth daily. 90 Cap 3 04/21/2019 Active latanoprost (XALATAN) 0.005 % ophthalmic solution Instill 1 Drop into the left eye at bedtime. 10/22/2019 Active Timolol Hemihydrate 0.5 % Ophthalmic Solution (Betimol) Instill 1 Drop into the left eye in the morning. 1 mL 04/05/2021 Active Amoxicillin 500 MG Oral Capsule (Amoxil) take 4 capsules by mouth 1 HOUR PRIOR TO DENTAL APPOINTMENT 4 Cap 05/11/2021 Active Atenolol 50 MG Oral Tablet (Tenormin)Indica tions:Palpitatio ns,HTN, goal below 140/90 1 pill twice daily 180 Tablet 2 02/28/2023 Active Pantoprazole Sodium 40 MG Oral Tablet Delayed Release (Protonix)Indica tions:Gastroesop hageal reflux disease without esophagitis Take 1 Tablet by mouth in the morning. 90 Tablet 1 03/26/2023 Active Pravastatin Sodium 10 MG Oral Tablet (Pravachol) Take 1 tab every day at bedtime 90 Tablet 1 06/24/2023 Active amLODIPine Besylate 5 MG Oral Tablet (Norvasc)Indicat ions:HTN, goal below 140/90 Take 1 Tablet by mouth in the morning. 90 Tablet 3 06/24/2023 Active Dorzolamide HCl-Timolol Mal PF 2-0.5 % Ophthalmic Solution Instill 1 Drop into eye in the morning and 1 Drop before bedtime. 1 drop in left eye twice daily. Active PARoxetine HCl 10 MG Oral Tablet (pAXil) Take 1 Tablet by mouth in the morning. 90 Tablet 2 11/22/2023 Active Losartan Potassium 100 MG Oral Tablet (Cozaar) TAKE 1 TABLET BY MOUTH DAILY IN THE MORNING 90 Tablet 12/24/2023 4 Discontinued documented as of this encounter (statuses as of 02/03/2024) Active Problems Problem Noted Date Diagnosed Date Stage 3a chronic kidney disease 05/30/2020 Overview: Per CKD protocol - Per CKD protocol CONNOR (generalized anxiety disorder) 10/17/2018 Paroxysmal SVT (supraventricular tachycardia) PVCs (premature ventricular contractions) 2013 Obesity, Class I, BMI 30.0-34.9 (see actual BMI) 01/27/2014 AV block, 1st degree 08/12/2013 Carotid artery disease without cerebral infarcti on 12/16/2012 Dyslipidemia, goal LDL below 100 12/16/2012 MVP (mitral valve prolapse) 02/11/2012 Deviated nasal septum 11/30/2010 HTN, GOAL BELOW 140/90 06/08/2009 Overview: Modified per HTN protocol #16. RICH inhibitor intolerance 04/21/2008 PRIM OPEN ANGLE GLAUCOMA 10/01/2000 Esophageal reflux documented as of this encounter (statuses as of 02/03/2024) Resolved Problems Problem Noted Date Diagnosed Date Resolved Date Kidney disease, chronic, sta ge III (GFR 30-59 ml/min) 05/04/2019 06/02/2020 Overview: Per CKD protocol 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 10/17/2018 Palpitations 04/16/2014 09/12/2017 Sleep apnea 12/16/2012 02/09/2013 Genetic Sleep Disorder Resea [facility] Other*[id number] 06/25/2011 02/22/2016 Herpes zoster 08/19/2006 10/15/2007 Hypoxemia 02/04/2006 10/15/2007 NONALLERGIC RHINITIS 01/07/2004 019 Cardiac dysrhythmia, unspecified 08/15/2002 10/15/2007 Sicca syndrome 05/26/2002 10/15/2007 NEUROPATHY IN OTHER DIS 04/17/200209/20 Chest pain 03/31/2002 10/15/2007 Myalgia and myositis 03/24/2002 008 FAM HX-DIABETES MELLITUS 01/20/2002 Family history of other card iovascular diseases 01/20/2002 09/12/2017 Overview: ICD-10 update of inactive term DYSFUNCT EUSTACHIAN TUBE 12/10/2001 Dyslipidemia, goal to be determined 09/12/2001 08/12/2012 Herpes simplex virus infection 07/02/2000 11/14/2011 Sialoadenitis 07/02/2000 10/15/2007 HYPERTENSION NOS 06/09/2009 Overview: Modified per HTN protocol #16. Heartburn 10/15/2007 MITRAL VALVE DIS NEC-NOS Other specified glaucoma documented as of this encounter (statuses as of 02/03/2024) Immunizations Name Administration Dates Next Due COVID-19 mRNA, LNP-s, No Pre serve, 2-Dose Series (Hands) 11/09/2020,10/19/2020 Pneumococcal Conjugate Vacc, 13 Valent (Prevnar) 03/09/2016 Pneumococcal Polysaccharide PPV23 (Pneumovax) 10/15/2007 Season Influenza, Quad, PF, Adjuvanted, 65+ Yrs, IM (FLUAD) 05/11/2020 Seasonal Influenza, PF, 6 M & above, IM , (FluLaval or Fluzone) 05/13/2018,04/25/2017 Seasonal Influenza, Quadriva lent Hd (Fluzone Hd) 04/18/2023,05/08/2022,05/04/2021 Seasonal Influenza, Quadriva lent, No Preserve, IM 05/04/2016,05/12/2015 Seasonal Influenza, Split, I IV3, With Preserve, Inj 04/28/2014,05/05/2013,04/16/2012,05/04,05/04/2010,04/21/2008,05/14/2007 ,05/15/2006 Seasonal Influenza, Trivalen t, Adjuvanted, 65+ yrs 05/01/2019 TD, Preservative Free 04/07/2008 documented as of this encounter Social History Tobacco Use Types Packs/Day Years Used Date Smoking Tobacco: Former Cigarettes 2 4 0 12/20/1970 - 12/20/1974 Smokeless Tobacco: Never Comments:quit in 1981; no pa ssive smoke exposures Alcohol Use Standard Drinks/Week Comments Yes 0 (1 standard drink = 0.6 oz pur e alcohol) 1-2 glasses wine daily PHQ-2 Answer Date Recorded PHQ Adult Total Score 0 01/16/2024 Hunger Vital Sign Answer Date Recorded Within the past 12 months, y ou worried that your food would run out before you got the money to buy more. Never true 01/16/20 24 Within the past 12 months, t he food you bought just didn't last and you didn't have money to get more. Never true 01/16/2024 Childcare Answer Date Recorded Do you feel overwhelmed with taking care of a child, family member or friend? No 01/16/2024 Does your family need help f inding childcare? (Household - for ages 0-17 years) Not on file 01/16/2024 Clothing Answer Date Recorded Have you been unable to get clothing when it was really needed? No 01/16/2024 Is your family able to get c lothes or diapers when needed? (Household - for ages 0-17 years) Not on file 01/16/2024 Personal Safety Answer Date Recorded Do you feel unsafe or have concerns for your saf ety? No 01/16/2024 Do you have concerns for you r family's safety? (Household - for ages 0-17 years) Not on file 01/16/2024 Utilities Answer Date Recorded Do you have trouble paying y our heating, water, or electric bill? No 01/16/2024 Is your family able to pay t he heat, water, or electric bill? (Household - for ages 0-17 years) Not on file 01/16/2024 Does your family have access to good internet? (Household - for ages 0-17 years) Not on file 01/16/2024 Employment Status Answer Date Recorded Are you unemployed or without regular income? No 01/16/2024 Does the household have a re gular source of income? (Household - for ages 0-17 years) Not on file 01/16/2024 Social Connections Answer Date Recorded How often do you feel lonely or isolated from th ose around you? Rarely 01/16/2024 Financial Resource Strain Answer Date R ecorded Do you have any trouble payi ng for your medications, or do you think you might in the future? No 01/16/2024 Does your family have troubl e paying for medicine? (Household - for ages 0-17 years) Not on file 01/16/2024 Transportation Needs Answer Date Record ed Do you have trouble getting a ride to medical visits or work? (Adult - for ages 18 years and over) Not on file 01/16/2024 Does your family have a hard time getting a ride to doctors visits? (Household - for ages 0-17 years) Not on file 01/16/2024 Has lack of transportation k ept you from medical appointments, meetings, work, or from getting things needed for daily living? Check all that apply. No 01/16/2024 Do you (or your family) have trouble finding or paying for a ride (transportation)? (Household - for ages 0-17 years) Not on file 01/16/2024 Housing Stability Answer Date Recorded Do you currently live in a s helter or have no steady place to sleep at night? No 01/16/2024 Do you think you are at risk of becoming homeless? (Adult - for ages 18 years and over) Not on file 01/16/2024 Does your family worry about paying for your home or becoming homeless? (Household - for ages 0-17 years) Not on file 0 01/16/2024 Are you homeless or worried that you might be in the future? No 01/16/2024 Are you (or your family) ron eless or worried that you might be in the future? (Household - for ages 0-17 years) Not on file Food Insecurity Answer Date Recorded Do you need food for this week? No 01/16/2024 Are you able to get enough f ood for your family? (Household - for ages 0-17 years) Not on file 01/16/2024 Does your family need food t his week? (Household - for ages 0-17 years) Not on file 01/16/2024 Do you always have enough fo od for your family? (Household - for ages 0-17 years) Not on file 01/16/2024 Sex and Gender Information Value Date Recorded Sex Assigned at Female 10/01/2019 10:37 AM EDT Gender Identity Female 10/01/2019 10:37 AM EDT Sexual Orientation Straight 01/27/2019 10 :29 AM EDT Job Start Date Occupation Industry Not on file Not on file Not on file documented as of this encounter Last Filed Vital Signs Vital Sign Reading Time Taken Comments Blood Pressure 132/78 01/16/2024 1:12 PM EDT Pulse 55 01/16/2024 1:12 PM EDT Temperature 36.9 C (98.4 F) 01/16/2024 1:12 PM ED T Respiratory Rate 16 01/16/2024 1:12 PM EDT Oxygen Saturation 98% 01/16/2024 1:12 PM EDT Inhaled Oxygen Concentration - - Weight 82.6 kg (182 lb) 01/16/2024 1:12 PM EDT Height - - Body Mass Index 33.29 07/05/2023 10:44 AM EST documented in this encounter Progress Notes * Shiv Spring MD - 02/03/2024 8:00 PM EDT Subjective: Lena Sweeney is a 83 year old female here today for Chief Complaint Patient presents with Follow Up Patient is here today for follow up visit Patient states no concerns Past Medical History: Diagnosis Date Adjustment disorder with depressed mood Esophageal reflux HTN, goal to be determined Menopause Mitral valve regurgitation 2006 2+ by echo Myalgia and myositis Other specified glaucoma Sicca syndrome (HCC) Sjogrens Past Surgical History: Procedure Laterality Date COLONOSCOPY 09/2005 Normal - [place] - repeat 10 years EGD, FLEXIBLE, DIAGNOSTIC 03/25/2015 mild stomach irritation/ESOPHAGOGASTRODUODENOSCOPY (EGD), FLEXIBLE, TRANSORAL, DIAGNOSTIC performedby Candace Heart DO at ENDOSCOPY [facility] EGD, FLEXIBLE, W/BIOPSY 10/15/06 path-reflux EXPLORATION OF TEAR DUCTS 05/23 Lacrimal Duct Explore plugs to be put in INFORMATION c sect x 4, d and c x 2 INFORMATION trabeculectomy x2 rt eye INFORMATION 10/21/00 trabeculectomy left eye INJECT DX/THER SUBSTANCE INTERLAMINAR LUMBAR/SACRAL W IMAGE GUIDE 04/11/2017 INJECTION SPINE LUMBAR OR SACRAL performed by Charlie Rincon DO at OR [facility] KNEE ARTHROSCOPY, DIAGNOSTIC 2005 Knee Arthroscopy MISCELLANEOUS ORDER ([facility] ONLY) 2007, 2008 cataracts MISCELLANEOUS ORDER ([facility] ONLY) 2012 Left rotator cuff repair, Dr. Green REMOVAL OF APPENDIX 02/15/03 Appendectomy ([facility] Dr. Gomes Review of patient's allergies indicates: Allergen Reactions Zetia [Ezetimibe] GI distress Rich Inhibitors Cough Morphine And Codeine Nausea/vomiting GI distress when patient takes PO. She can tolerate IV. Sulfa Antibiotics Rash Sulindac Nausea/vomiting Current Outpatient Medications Medication Sig Dispense Refill ASPIRIN 81 MG PO TABS one tab by mouth daily 34 Tab 5 VITAMIN D3 1000 UNIT PO TABS one tablet by mouth daily Fish Oil-Coenzyme Q10 (FISH OIL PLUS CO Q-10) 1000-30 MG CAPS Take 1 Cap by mouth daily. Magnesium Oxide 400 MG Capsule Take 1 Cap by mouth daily. 90 Cap 3 latanoprost (XALATAN) 0.005 % ophthalmic solution Instill 1 Drop into the left eye at bedtime. Timolol Hemihydrate 0.5 % Ophthalmic Solution (Betimol) Instill 1 Drop into the left eye in the morning. 1 mL 0 Atenolol 50 MG Oral Tablet (Tenormin) 1 pill twice daily 180 Tablet 2 Pantoprazole Sodium 40 MG Oral Tablet Delayed Release (Protonix) Take 1 Tablet by mouth in the morning. 90 Tablet 1 Pravastatin Sodium 10 MG Oral Tablet (Pravachol) Take 1 tab every day at bedtime 90 Tablet 1 amLODIPine Besylate 5 MG Oral Tablet (Norvasc) Take 1 Tablet by mouth in the morning. 90 Tablet 3 Dorzolamide HCl-Timolol Mal PF 2-0.5 % Ophthalmic Solution Instill 1 Drop into eye in the morning and 1 Drop before bedtime. 1 drop in left eye twice daily. PARoxetine HCl 10 MG Oral Tablet (pAXil) Take 1 Tablet by mouth in the morning. 90 Tablet 2 fluticasone (FLONASE) 50 MCG/ACT nasal spray instill 2 sprays into each nostril once daily 1 Bottle5 Amoxicillin 500 MG Oral Capsule (Amoxil) take 4 capsules by mouth 1 HOUR PRIOR TO DENTAL APPOINTMENT (Patient not taking: Reported on 01/16/2024) 4 Cap Losartan Potassium 100 MG Oral Tablet (Cozaar) TAKE 1 TABLET BY MOUTH DAILY IN THE MORNING 90 Tablet 2 No current facility-administered medications for this visit. Objective: BP 132/78 | Pulse 55 | Temp 36.9 C (98.4 F) (Tympanic) | Resp 16 | Wt 82.6 kg (182 lb) | SpO2 98% | BMI 33.29 kg/m | BSA 1.9 m GEN: NAD HEENT: Benign NECK: Supple with no LAD, TM, JVD CHEST: CTA B CV: RRR ABD: Soft, NT/ND, No HSM, NABS EXT: No c,c,e Assessment and Plan: Dyslipidemia, goal LDL below 100 (Primary) HTN, GOAL BELOW 140/90 Stage 3a chronic kidney disease CONNOR (generalized anxiety disorder) Follow Up: Return in about 6 months (around 07/17/2024) for recheck. | For: recheck | Check-out note: Labs today 32 min with pt and chart review. Shiv Spring MD documented in this encounter Nursing Notes * Florentin Treadwell MED ASSIST - 01/16/2024 1:16 PM EDT The patient has been properly identified by confirmation of name and date of . Chief Complaint Patient presents with Follow Up Patient is here today for follow up visit Patient states no concerns documented in this encounter Plan of Treatment Upcoming Encounters Date Type Department Care Team (Late st Contact Info) Description 03/05/2024 2:30 PM EDT Cardiac Studies Cardiac Studies, [facility] [address] [facility] [place] [id number] 07/31/2024 2:40 PM EST Office Visit [facility] [address] [place] [address] Shiv Spring MD [address] [place] [address] Health Maintenance Due Date Last Done Comments Zoster Vaccines (1 of 2) 1988 DTaP,Tdap,and Td Vaccines (1 - Tdap) 04/08/2008 04/07/2008, 04/27/1999 COVID-19 Vaccine (3 - 2022- season) 2023 11/09/2020, 10/19/2020 Influenza Vaccine (FLU shot) (#1) 2024 04/18/2023, 05/08/2022, 05/04/2021, Additional history exists Albumin/Creatinine Ratio 07/01/2024 07/01/2023 CKD HGB USE SMARTSET 73738 07/01/202407/01, 06/12/2022, 06/12/2022, Additional history exists CKD PHOS USE SMARTSET 33738 07/01/202406/21, 06/12/2022, 06/19/2021, Additional history exists Mammogram 01/08/2025 01/08/2023, 11/2020, 02/09/2020, Additional history exists DXA Scan 01/13/2025 01/13/2018, 02/2013, 07/29/2012, Additional history exists Depression Screening 01/15/2025 01/16/2024 Pneumococcal Vaccine: 65+ Years Completed 03/09/2016, 10/15/2007, 04/17/2002, Additional history exists HPV (Gardasil) Vaccine Aged Out No lo nger eligible based on patient's age to complete this topic Hepatitis B Vaccine Aged Out No longe r eligible based on patient's age to complete this topic MENINGOCOCCAL (MENACTRA/MENVEO) Aged Out No longer eligible based on patient's age to complete this topic documented as of this encounter Medical Devices Not on filedocumented as of this encounter Visit Diagnoses Diagnosis Dyslipidemia, goal LDL below 100- Primary Other and unspecified hyperlipidemia HTN, GOAL BELOW 140/90 Unspecified essential hypertension Stage 3a chronic kidney disease CONNOR (generalized anxiety disorder) Generalized anxiety disorder documented in this encounter Additional Health Concerns Infection Onset Date Last Indicated Resolved Time COVID-19 (confirmed) 11/29/2021 11/29/2021 documented as of this encounter Care Teams Diesel Mechanic Helper Relationship Specialty Start Date End Date Shiv Spring MD [address] [place] [address] PCP - General 12/25/02 documented as of this encounter"
--- OUTSIDE RECORDS SUMMARY | 2024-04-14 05:39 | External Medical Summary | Summary of Care ---
Author Name Unknown Organization [facility] Address [address] [facility] [place] [address] Phone [phone] Care Team Providers Care Branch Administrator Name Role Phone Shiv Spring MD Primary Care Provider +1- [phone] Encounter Details Date Type Department Care Team (Late st Contact Info) Description 12/28/2023 Orders Only PATIENT PORTAL DO NOT DELETE THIS DEPT USED BY [place] [id number] Allergies Active Allergy Reactions Criticality Noted Date Comments Rich Inhibitors Cough Low 04/21/2008 Morphine And Codeine Nausea/vomiting Low 04/27/1999 GI distress when patient takes PO. She can tolerate IV. Sulfa Antibiotics Rash Low 11/30/2010 Sulindac Nausea/vomiting Low 04/17/2002 Ezetimibe 03/13/2018 GI distress documented as of this encounter (statuses as of 12/28/2023) Medications Medication Sig Dispensed Refills Start Date End Date Status ASPIRIN 81 MG PO TABSIndications:HTN , goal to be determined one tab by mouth daily 34 Tab 5 04/10/2011 Active VITAMIN D3 1000 UNIT PO TABS one tablet by mouth daily Active Fish Oil-Coenzyme Q10 (FISH OIL PLUS CO Q-10) 1000-30 MG CAPS Take 1 Cap by mouth daily. 11/30/2014 Active fluticasone (FLONASE) 50 MCG/ACT nasal sprayIndications:Al lergic rhinitis instill 2 sprays into each nostril once daily 1 Bottle 5 06/11/2017 Active Magnesium Oxide 400 MG CapsuleIndications: Hypomagnesemia,PVCs (premature ventricular contractions) Take 1 Cap by [...] 05/11/2021 Active Atenolol 50 MG Oral Tablet (Tenormin)Indicatio ns:Palpitations,HTN , goal below 140/90 1 pill twice daily 180 Tablet 2 02/28/2023 Active Pantoprazole Sodium 40 MG Oral Tablet Delayed Release (Protonix)Indicatio ns:Gastroesophageal reflux disease without esophagitis Take 1 Tablet by mouth in the morning. 90 Tablet 1 03/26/2023 Active Pravastatin Sodium 10 MG Oral Tablet (Pravachol) Take 1 tab every day at bedtime 90 Tablet 1 06/24/2023 Active amLODIPine Besylate 5 MG Oral Tablet (Norvasc)Indication s:HTN, goal below 140/90 Take 1 Tablet by [...] DAILY IN THE MORNING 90 Tablet 12/24/2023 Active documented as of this encounter (statuses as of 12/28/2023) Active Problems Problem Noted Date Diagnosed Date [...] as of this encounter (statuses as of 12/28/2023) Resolved Problems Problem Noted Date Diagnosed Date Resolved Date Kidney disease, chronic, sta ge III (GFR 30-59 ml/min) 05/04/2019 06/02/2020 Overview: Per CKD protocol 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 10/17/2018 Palpitations 04/16/2014 09/12/2017 Sleep apnea 12/16/2012 02/09/2013 Genetic Sleep Disorder Resea [facility] Other*[id number] 06/25/2011 02/22/2016 Herpes zoster 08/19/2006 10/15/2007 Hypoxemia [...] as of this encounter (statuses as of 12/28/2023) Immunizations Name Administration Dates Next Due COVID-19 mRNA, LNP-s, No Pre serve, 2-Dose Series (Pfizer) 11/09/2020,10/19/2020 Pneumococcal Conjugate Vacc, 13 Valent (Prevnar) [...] Date Recorded PHQ Adult Total Score 0 12/25/2022 Hunger Vital Sign Answer Date Recorded Within the past 12 months, y ou worried that your food would run out before you got the money to buy more. Never true 12/26/19 23 Within the past 12 months, t he food you bought just didn't last and you didn't have money to get more. Never true 12/25/2022 Sex and Gender Information Value Date Recorded Sex Assigned at Female 10/01/2019 10:37 AM EDT Gender Identity Female 10/01/2019 10:37 AM EDT Sexual Orientation Straight 01/27/2019 10 :29 AM EDT Job Start Date Occupation Industry Not on file Not on file Not on file documented as of this encounter Plan of Treatment Upcoming Encounters Date Type Department Care Team (Late st Contact Info) Description 01/16/2024 1:20 PM EDT Office Visit [facility] [place] [address] [place] [address] Shiv Spring MD [address] [facility] [place] [address] 03/05/2024 2:30 PM EDT Cardiac Studies Cardiac Studies, [facility] [address] [facility] [place] [address] Health Maintenance Due Date Last Done Comments Zoster Vaccines (1 of 2) 1988 DTaP,Tdap,and Td Vaccines (1 - Tdap) 04/08/2008 04/07/2008, 04/27/1999 COVID-19 Vaccine (3 - season) 2023 11/09/2020, 10/19/2020 Depression Screening 12/26/2023 12/25/2022 Albumin/Creatinine Ratio 07/01/2024 07/01/2023 CKD HGB USE SMARTSET [id number] 07/01/202407/01, 06/12/2022, 06/12/2022, Additional history exists CKD PHOS USE SMARTSET 79143 07/01/202406/21, 06/12/2022, 06/19/2021, Additional history exists Mammogram 01/08/2025 01/08/2023, 11/2020, 02/09/2020, Additional history exists DXA Scan 01/13/2025 01/13/2018, 02/2013, 07/29/2012, Additional history exists Pneumococcal Vaccine: 65+ Years Completed 03/09/2016, 10/15/2007, 04/17/2002, Additional history exists Influenza Vaccine (FLU shot) Completed , 05/08/2022, 05/04/2021, Additional history exists GARDASIL-HPV IMMUNIZATION SERIES Aged Out No longer eligible based on patient's age to complete this topic Hepatitis B Aged Out No longer eligi ble based on patient's age to complete this topic MENINGOCOCCAL (MENACTRA/MENVEO) Aged Out No longer eligible based on patient's age to complete this topic documented as of this encounter Medical Devices Not on filedocumented as of this encounter Additional Health Concerns Infection Onset Date Last Indicated Resolved Time COVID-19 (confirmed) 11/29/2021 11/29/2021 documented as of this encounter Care Teams Branch Administrator Relationship Specialty Start Date End Date Shiv Spring MD [address] [place] [address] PCP - General 12/25/02 documented as of this encounter
--- OUTSIDE RECORDS SUMMARY | 2024-04-14 05:39 | External Medical Summary | Summary of Care ---
Author Name Unknown Organization [facility] Address [address] [place] [address] Phone [phone] Care Team Providers Care Perinatal Director Name Role Phone Elissa Paul MD Primary Care Provider [phone]- [phone] Reason for Visit * Reason Onset Date Comments Medication Refill 03/20/2024 Encounter Details Date Type Department Care Team (Late st Contact Info) Description 03/20/2024 Refill [facility] [address] [place] [address] Elissa Paul MD [address] [place] [address] Gastroesophageal reflux disease without esophagitis Allergies Active Allergy Reactions Criticality Noted Date Comments Rich Inhibitors Cough Low 04/21/2008 Morphine And Codeine Nausea/vomiting Low 04/27/1999 GI distress when patient takes PO. She can tolerate IV. Sulfa Antibiotics Rash Low 11/30/2010 Sulindac Nausea/vomiting Low 04/17/2002 Ezetimibe 03/13/2018 GI distress documented as of this encounter (statuses as of 03/23/2024) Medications Medication Sig Dispensed Refills Start Date End Date Status ASPIRIN 81 MG PO TABSIndications:H TN, goal to be determined one tab by mouth daily 34 Tab 5 04/10/2011 Active VITAMIN D3 1000 UNIT PO TABS one tablet by mouth daily Active Fish Oil-Coenzyme Q10 (FISH OIL PLUS CO Q-10) 1000-30 MG CAPS Take 1 Cap by mouth daily. 11/30/2014 Active fluticasone (FLONASE) 50 MCG/ACT nasal sprayIndications: Allergic rhinitis instill 2 sprays into each nostril once daily 1 Bottle 5 06/11/2017 Active Magnesium Oxide 400 MG CapsuleIndication s:Hypomagnesemia, PVCs (premature ventricular contractions) Take 1 Cap by [...] 05/11/2021 Active Atenolol 50 MG Oral Tablet (Tenormin)Indicat ions:Palpitations ,HTN, goal below 140/90 1 pill twice daily 180 Tablet 2 02/28/2023 Active amLODIPine Besylate 5 MG Oral Tablet (Norvasc)Indicati ons:HTN, goal below 140/90 Take 1 Tablet by mouth in the morning. 90 Tablet 3 06/24/2023 Active Dorzolamide HCl-Timolol Mal PF 2-0.5 % Ophthalmic Solution Instill 1 Drop into eye in the morning and 1 Drop before bedtime. 1 drop in left eye twice daily. Active Benzonatate 100 MG Oral CapsuleIndication s:Sinobronchitis Take 1 Capsule by mouth 3 times a day as needed for Cough. 30 Capsule 1 02/05/2024 Active Montelukast Sodium 10 MG Oral Tablet (Singulair)Indica tions:Sinobronchi tis Take 1 Tablet by mouth in the morning. 30 Tablet 02/28/2024 Active Pantoprazole Sodium 40 MG Oral Tablet Delayed Release (Protonix)Indicat ions:Gastroesopha geal reflux disease without esophagitis Take 1 Tablet by mouth in the morning. 90 Tablet 1 03/23/2024 Active Pravastatin Sodium 10 MG Oral Tablet (Pravachol) Take 1 tab every day at bedtime 90 Tablet 1 03/23/2024 Active PARoxetine HCl 10 MG Oral Tablet (pAXil) Take 1 Tablet by mouth in the morning. 90 Tablet 1 03/23/2024 Active Losartan Potassium 100 MG Oral Tablet (Cozaar) Take 1 Tablet by mouth in the morning. In the morning.. 90 Tablet 1 03/23/2024 Active Pantoprazole Sodium 40 MG Oral Tablet Delayed Release (Protonix)Indicat ions:Gastroesopha geal reflux disease without esophagitis Take 1 Tablet by mouth in the morning. 90 Tablet 1 03/26/2023 4 Discontinue d(Refill) Pravastatin Sodium 10 MG Oral Tablet (Pravachol) Take 1 tab every day at bedtime 90 Tablet 1 06/24/2023 4 Discontinue d(Refill) PARoxetine HCl 10 MG Oral Tablet (pAXil) Take 1 Tablet by mouth in the morning. 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 Palpitations 04/16/2014 09/12/2017 Sleep apnea 12/16/2012 02/09/2013 Genetic Sleep Disorder Resea [facility] Other*[id number] 06/25/2011 02/22/2016 Herpes zoster 08/19/2006 10/15/2007 Hypoxemia [...] as of this encounter (statuses as of 03/23/2024) Immunizations Name Administration Dates Next Due COVID-19 [...] lent, No Preserve, IM 05/04/2016,05/12/2015 Seasonal Influenza, Trivalen t, (IIV3), with Preserv, (Fluzone) 04/28/2014,05/05/2013,04/16/2012,05/04,05/04/2010,04/21/2008,05/14/2007 ,05/15/2006 Seasonal Influenza, Trivalen t, Adjuvanted, 65+ YRS, PF, (Fluad) 05/01/2019 TD, Preservative Free 04/07/2008 documented as [...] 01/16/2024 Does the household have a re lar source of income? (Household - for ages [...] on file documented as of this encounter Miscellaneous Notes * Telephone Encounter - Serafin Zimmerman, [facility] - 03/23/2024 12:55 PM EDT Signed Prescriptions: Disp Refills Pantoprazole Sodium 40 MG Oral Tablet Ann*90 Tab*1 Sig: Take 1 Tablet by mouth in the morning.Authorizing Provider: ELISSA PAUL User: SERAFIN ZIMMERMAN Pravastatin Sodium 10 MG Oral Tablet (Prav*90 Tab*1 Sig: Take 1 tab every day at bedtimeAuthorizing Provider: ELISSA PAUL User: SERAFIN ZIMMERMAN PARoxetine HCl 10 MG OralTablet (pAXil) 90 Tab*1 Sig: Take 1 Tablet by mouth in the morning.Authorizing Provider: ELISSA PAUL User: SERAFIN ZIMMERMAN Losartan Potassium 100 MG Oral Tablet (Coz*90 Tab*1 Sig: Take 1 Tablet by mouth in the morning. In the morning..Authorizing Provider: ELISSA PAUL User: SERAFIN ZIMMERMAN documented in this encounter Plan of Treatment Upcoming Encounters Date Type Department Care Team (Late st Contact Info) Description 07/31/2024 2:40 PM EST Office Visit [facility] [address] [place] [facility] [place] [address] Elissa Paul MD [address] [place] [facility] [place] [address] Health Maintenance Due Date Last Done Comments Zoster Vaccines (1 of 2) 1988 DTap/Tdap Vaccines (1 - Tdap) 04/08/2008 04/07/2008, 04/27/1999 Adult Wellness Visit 02/22/2022 02/22/2021 COVID-19 Vaccine (3 - season) 2024 11/09/2020, 10/19/2020 Influenza Vaccine (FLU shot) (#1) 2024 04/18/2023, 05/08/2022, 05/04/2021, Additional history exists Albumin/Creatinine Ratio 07/01/2024 07/01/2023 CKD HGB USE SMARTSET 95147 07/01/202407/01, 06/12/2022, 06/12/2022, Additional history exists CKD PHOS USE SMARTSET 03356 07/01/202406/21, 06/12/2022, 06/19/2021, Additional history exists Mammogram [...] as of this encounter Visit Diagnoses Diagnosis Gastroesophageal reflux disease without esophagitis Esophageal reflux documented in this encounter Additional Health Concerns Infection Onset Date Last Indicated Resolved Time COVID-19 (confirmed) 11/29/2021 11/29/2021 documented as of this encounter Care Teams Perinatal Director Relationship Specialty Start Date End Date Elissa Paul MD [address] [place] [address] PCP - General 12/25/02 documented as of this encounter
--- OUTSIDE RECORDS SUMMARY | 2024-04-14 05:39 | External Medical Summary | Summary of Care ---
Author Name Unknown Organization [facility] Address [address] [place] [address] Phone [phone] Care Team Providers Care Sales Account Specialist Name Role Phone Elissa Paul MD Primary Care Provider [phone]- [phone] Reason for Visit * Reason Comments eRx-Medication Refill Encounter Details Date Type Department Care Team (Late st Contact Info) Description 01/29/2024 Refill [facility] [address] [place] [facility] [place] [address] Elissa Paul MD [address] [place] [address] Allergies Active Allergy Reactions Criticality Noted Date Comments Rich Inhibitors Cough Low 04/21/2008 Morphine And Codeine Nausea/vomiting Low 04/27/1999 GI distress when patient takes PO. She can tolerate IV. Sulfa Antibiotics Rash Low 11/30/2010 Sulindac Nausea/vomiting Low 04/17/2002 Ezetimibe 03/13/2018 GI distress documented as of this encounter (statuses as of 01/30/2024) Medications Medication Sig Dispensed Refills Start Date [...] IN THE MORNING 90 Tablet 2 01/30/2024 Active Losartan Potassium 100 MG Oral Tablet (Cozaar) TAKE 1 TABLET BY MOUTH DAILY IN THE MORNING 90 Tablet 12/24/2023 4 Discontinued documented as of this encounter (statuses as of 01/30/2024) Active Problems Problem Noted Date Diagnosed Date [...] as of this encounter (statuses as of 01/30/2024) Resolved Problems Problem Noted Date Diagnosed Date Resolved Date Kidney disease, chronic, sta ge III (GFR 30-59 ml/min) 05/04/2019 06/02/2020 Overview: Per CKD protocol 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 10/17/2018 Palpitations 04/16/2014 09/12/2017 Sleep apnea 12/16/2012 02/09/2013 Genetic Sleep Disorder Resea [facility] Other*[id number] 06/25/2011 02/22/2016 Herpes zoster 08/19/2006 10/15/2007 Hypoxemia [...] as of this encounter (statuses as of 01/30/2024) Immunizations Name Administration Dates Next Due COVID-19 mRNA, LNP-s, No Pre serve, 2-Dose Series ([employer]) 11/09/2020,10/19/2020 Pneumococcal Conjugate Vacc, 13 Valent (Prevnar) [...] encounter Miscellaneous Notes * Telephone Encounter - Ricky Bah [facility] - 01/30/2024 11:03 AM EDTSigned Prescriptions: Disp Refills Losartan Potassium 100 MG Oral Tablet (Coz*90 Tab*2 Sig: TAKE 1 TABLET BY MOUTH DAILY IN THE MORNINGAuthorizing Provider: ELISSA PAUL User: RICKY BAH documented in this encounter Plan of Treatment Upcoming Encounters Date Type Department Care Team (Late st Contact Info) Description 03/05/2024 2:30 PM EDT Cardiac Studies Cardiac Studies, [facility] [address] [facility] [place] [address] 07/31/2024 2:40 PM EST Office Visit [facility] [address] [place] [address] Elissa Paul MD [address] [place] [address] Health Maintenance Due Date Last Done Comments Zoster Vaccines (1 of 2) 1988 DTaP,Tdap,and Td Vaccines (1 - Tdap) 04/08/2008 04/07/2008, 04/27/1999 COVID-19 Vaccine (3 - 2022- season) 2023 11/09/2020, 10/19/2020 Influenza Vaccine (FLU shot) (#1) 2024 04/18/2023, 05/08/2022, 05/04/2021, Additional history exists Albumin/Creatinine Ratio 07/01/2024 07/01/2023 CKD HGB USE SMARTSET 49688 07/01/202407/01, 06/12/2022, 06/12/2022, Additional history exists CKD PHOS USE SMARTSET 96797 07/01/202406/21, 06/12/2022, 06/19/2021, Additional history exists Mammogram [...] documented as of this encounter Care Teams Sales Account Specialist Relationship Specialty Start Date End Date Elissa Paul MD [address] [place] [address] PCP - General 12/25/02 documented as of this encounter
--- OUTSIDE RECORDS SUMMARY | 2024-04-14 05:39 | External Medical Summary | Summary of Care ---
Author Name Unknown Organization [facility] Address [address] [place] [address] Phone [phone] Care Team Providers Care Senior Linux Administrator Name Role Phone Shiv Spring MD Primary Care Provider [phone]- [phone] Reason for Visit * Reason Comments Congestion Pt states that she i s here for a cough, congestion, eyes are red, scratchy throat, runny stools, and congestion. She states that is has been ongoing since Saturday. Encounter Details Date Type Department Care Team (Late st Contact Info) Description 02/05/2024 10:20 AM EDT Office Visit [facility] [address] [place] [address] Lillie Arechiga PAMaricruzC [address] [place] [address] Sinobronchitis* Allergies Active Allergy Reactions Criticality Noted Date Comments Rich Inhibitors Cough Low 04/21/2008 Morphine And Codeine Nausea/vomiting Low 04/27/1999 GI distress when patient takes PO. She can tolerate IV. Sulfa Antibiotics Rash Low 11/30/2010 Sulindac Nausea/vomiting Low 04/17/2002 Ezetimibe 03/13/2018 GI distress documented as of this encounter (statuses as of 02/05/2024) Medications Medication Sig Dispensed Refills Start Date End Date Status ASPIRIN 81 MG PO TABSIndications:HT N, goal to be determined one tab by mouth daily 34 Tab 5 04/10/2011 Active VITAMIN D3 1000 UNIT PO TABS one tablet by mouth daily Active Fish Oil-Coenzyme Q10 (FISH OIL PLUS CO Q-10) 1000-30 MG CAPS Take 1 Cap by mouth daily. 11/30/2014 Active fluticasone (FLONASE) 50 MCG/ACT nasal sprayIndications:A llergic rhinitis instill 2 sprays into each nostril once daily 1 Bottle 5 06/11/2017 Active Magnesium Oxide 400 MG CapsuleIndications :Hypomagnesemia,PV Cs (premature ventricular contractions) Take 1 Cap by [...] 05/11/2021 Active Atenolol 50 MG Oral Tablet (Tenormin)Indicati ons:Palpitations,H TN, goal below 140/90 1 pill twice daily 180 Tablet 2 02/28/2023 Active Pantoprazole Sodium 40 MG Oral Tablet Delayed Release (Protonix)Indicati ons:Gastroesophage al reflux disease without esophagitis Take 1 Tablet by mouth in the morning. 90 Tablet 1 03/26/2023 Active Pravastatin Sodium 10 MG Oral Tablet (Pravachol) Take 1 tab every day at bedtime 90 Tablet 1 06/24/2023 Active amLODIPine Besylate 5 MG Oral Tablet (Norvasc)Indicatio ns:HTN, goal below 140/90 Take 1 Tablet by [...] THE MORNING 90 Tablet 2 01/30/2024 Active Amoxicillin 500 MG Oral Capsule (Amoxil)Indication s:Sinobronchitis Take 1 Capsule by mouth in the morning and 1 Capsule at noon and 1 Capsule before bedtime. Do all this for 10 days. 30 Capsule 02/05/2024 02/15/2024 Active Benzonatate 100 MG Oral CapsuleIndications :Sinobronchitis Take 1 Capsule by mouth 3 times a day as needed for Cough. 30 Capsule 1 02/05/2024 Active predniSONE 20 MG Oral Tablet (Deltasone)Indicat ions:Sinobronchiti s Take 1 Tablet by mouth in the morning for 5 days. 5 Tablet 02/05/2024 02/10/2024 Active Montelukast Sodium 10 MG Oral Tablet (Singulair)Indicat ions:Sinobronchiti s Take 1 Tablet by mouth in the morning. 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 10/17/2018 Palpitations 04/16/2014 09/12/2017 Sleep apnea 12/16/2012 02/09/2013 Genetic Sleep Disorder Resea [facility] Other*[id number] 06/25/2011 02/22/2016 Herpes zoster 08/19/2006 10/15/2007 Hypoxemia [...] as of this encounter (statuses as of 02/05/2024) Immunizations Name Administration Dates Next Due COVID-19 mRNA, LNP-s, No Pre serve, 2-Dose Series ([employer]) 11/09/2020,10/19/2020 Pneumococcal Conjugate Vacc, 13 Valent (Prevnar) [...] 0 12/20[birth year]1970 - 12/20[birth year]1974 Smokeless Tobacco: Never Tobacco Cessation:Counseling Given: Not Answered Comments:quit in 1981; no passive smoke exposures Alcohol Use Standard Drinks/Week Comments [...] for ages 0-17 years) Not on file 06 / Food Insecurity Answer Date Recorded Do you [...] Sign Reading Time Taken Comments Blood Pressure 124/62 02/05/2024 10:35 AM EDT Pulse 54 02/05/2024 10:35 AM EDT Temperature 36.8 C (98.3 F) 02/05/2024 10:35 AM E DT Respiratory Rate 18 02/05/2024 10:35 AM EDT Oxygen Saturation 97% 02/05/2024 10:35 AM EDT Inhaled Oxygen Concentration - - Weight 81.5 kg (179 lb 9.6 oz) 02/05/2024 10:35 AM EDT Height 157.5 cm (5' 2") 02/05/2024 10:35 AM EDT Body Mass Index 32.85 02/05/2024 10:35 AM EDT documented in this encounter Progress Notes * Lillie Arechiga PA-C - 02/05/2024 10:41 AM EDT Images from the original note were not included. History of Present Illness Lena Sweeney is a 83 year old female that presents for Congestion (Pt states that she is here for a cough, congestion, eyes are red, scratchy throat, runny stools, and congestion. She states that is has been ongoing since Saturday. ) Initially thought she had a cold Throat scratchy and nose running Coughing a lot - day and night Last night she put drops in her eye sand they got to be bright red Still red today Pus coming out of her eyes These were drops from the eye doctor and has been using them for years. Cough is productive of yellow stuff Chest feels ok Energy is low - not overly tired Running low grade fever Appetite is ok No n/v/d Sometimes has a slight headache Ears do not hurt So far she has taken tylenol Physical Exam Vitals: 02/05/24 1035 Temp: 36.8 C (98.3 F) Pulse: 54 Resp: 18 SpO2: 97% BP: 124/62 BMI: 32.84 BP Readings from Last 3 Encounters: 02/05/24 124/62 01/16/24 132/78 10/07/23 142/80 Wt Readings from Last 3 Encounters: 02/05/24 81.5 kg (179 lb 9.6 oz) 01/16/24 82.6 kg (182 lb) 10/07/23 81 kg (178 lb 8 oz) BMI Readings from Last 3 Encounters: 02/05/24 32.85 kg/m 01/16/24 33.29 kg/m 10/07/23 32.65 kg/m Ht Readings from Last 3 Encounters: 02/05/24 1.575 m (5' 2") 07/05/23 1.575 m (5' 2") 12/25/22 1.575 m (5' 2") General: alert, healthy, and no distress Head: Normocephalic, No masses, lesions, tenderness or abnormalities Eye Exam: PERRLA, extraocular movements intact, sclera clear, conjunctivits ada Ears: External ears normal, Canals clear, TM's Normal Nose: no purulent discharge, mucosal edema, mucosal erythema Oropharynx: no exudate, no erythema, lips, buccal mucosa, and tongue normal, mucous membranes are moist, and post nasal drip Neck: supple, no bruits, thyroid normal size, non-tender, without nodularity, large tender anteriorcervical adenopathy bilaterally Heart: regular rate & rhythm, no murmur, no gallops, S-1 normal, and S-2 normal Lungs: chest symmetric with normal AP diameter, no chest deformities noted, no chest wall tenderness, lungs clear to auscultation Assessment and Plan Sinobronchitis (Primary) - Amoxicillin 500 MG Oral Capsule (Amoxil); Take 1 Capsule by mouth in the morning and 1 Capsule atnoon and 1 Capsule before bedtime. Do all this for 10 days. - Benzonatate 100 MG Oral Capsule; Take 1 Capsule by mouth 3 times a day as needed for Cough. - predniSONE 20 MG Oral Tablet (Deltasone); Take 1 Tablet by mouth in the morning for 5 days. - Montelukast Sodium 10 MG Oral Tablet (Singulair); Take 1 Tablet by mouth in the morning. Discussed risk and benefits of short term prednisone therapy. Pt aware that there are side affects such as increased energy, aggression and mood swings, swelling, and increase in appetite. Agrees that this is the best course and is what is needed to deal with the issues. comfort care measures discussed saline nasal spray with bulb syringe plenty of fluids Tylenol per dosing recommendations for low grade fever humidifier Wrap-Up Highly possible she has covid but she is out of the window of treatment We discuss testing - defers Time: I spent a total of 10-19 minutes (exact time 10 mins) on the date of service in preparation, delivery, and documentation of the care provided to Lena Sweeney excluding any time spent in the performance of separately billed services. Lillie Arechiga PA-C 02/05/2024 10:47 AM * Lillie Arechiga PA-C - 02/05/2024 10:38 AM EDT Lillie Arechiga PA-C documented in this encounter Nursing Notes * Elvira Mercado LPN - 02/05/2024 10:35 AM EDT Lena Sweeney is a 83 year old female who presents today for Chief Complaint Patient presents with Congestion Pt states that she is here for a cough, congestion, eyes are red, scratchy throat documented in this encounter Plan of Treatment Upcoming Encounters Date Type Department Care Team (Late st Contact Info) Description 03/05/2024 2:30 PM EDT Cardiac Studies Cardiac Studies, [facility] [address] [place] [address] 07/31/2024 2:40 PM EST [facility] [address] [facility] [address] Shiv Spring MD [address] [place], [place] [id number] Health Maintenance Due Date Last Done Comments Zoster Vaccines (1 of 2) 1988 DTaP,Tdap,and Td Vaccines (1 - Tdap) 04/08/2008 04/07/2008, 04/27/1999 COVID-19 Vaccine (3 - 2022- season) 2023 11/09/2020, 10/19/2020 Influenza Vaccine (FLU shot) (#1) 2024 04/18/2023, 05/08/2022, 05/04/2021, Additional history exists Albumin/Creatinine Ratio 07/01/2024 07/01/2023 CKD HGB USE SMARTSET 71141 07/01/202407/01, 06/12/2022, 06/12/2022, Additional history exists CKD PHOS USE SMARTSET 44474 07/01/202406/21, 06/12/2022, 06/19/2021, Additional history exists Mammogram [...] as of this encounter Visit Diagnoses Diagnosis Sinobronchitis- Primary Unspecified sinusitis (chronic) documented in this encounter Additional Health Concerns Infection Onset Date Last Indicated Resolved Time COVID-19 (confirmed) 11/29/2021 11/29/2021 documented as of this encounter Care Teams Senior Linux Administrator Relationship Specialty Start Date End Date Shiv Spring MD [address] [place] [address] PCP - General 12/25/02 documented as of this encounter
--- OUTSIDE RECORDS SUMMARY | 2024-04-14 05:39 | External Medical Summary | Summary of Care ---
Author Name Unknown Organization [facility] Address [address] [place] [address] Phone [phone] Care Team Providers Care Statistical Methods Professor Name Role Phone Elissa Paul MD Primary Care Provider [phone]- [phone] Reason for Visit * Reason Onset Date Comments Medication Refill 11/21/2023 Encounter Details Date Type Department Care Team (Late st Contact Info) Description 11/21/2023 Refill [facility] [address] [place] [address] Elissa Paul MD [address] [place] [address] Allergies Active Allergy Reactions Criticality Noted Date Comments Rich Inhibitors Cough Low 04/21/2008 Morphine And Related Nausea/vomiting Low 04/27/1999 GI distress when patient takes PO. She can tolerate IV. Sulfa Antibiotics Rash Low 11/30/2010 Sulindac Nausea/vomiting Low 04/17/2002 Ezetimibe 03/13/2018 GI distress documented as of this encounter (statuses as of 11/22/2023) Medications Medication Sig Dispensed Refills Start Date End Date Status ASPIRIN 81 MG PO TABSIndications:H TN, goal to be determined one tab by mouth daily 34 Tab 5 04/10/2011 Active VITAMIN D3 1000 UNIT PO TABS one tablet by mouth daily 0 Active Fish Oil-Coenzyme Q10 (FISH OIL PLUS CO Q-10) 1000-30 MG CAPS Take 1 Cap by mouth daily. 0 11/30/2014 Active fluticasone (FLONASE) 50 MCG/ACT nasal sprayIndications: Allergic rhinitis instill 2 sprays into each nostril once daily 1 Bottle 5 06/11/2017 Active Magnesium Oxide 400 MG CapsuleIndication s:Hypomagnesemia, PVCs (premature ventricular contractions) Take 1 Cap by mouth daily. 90 Cap 3 04/21/2019 Active latanoprost (XALATAN) 0.005 % ophthalmic solution Instill 1 Drop into the left eye at bedtime. 0 10/22/2019 Active Timolol Hemihydrate 0.5 % Ophthalmic Solution (Betimol) Instill 1 Drop into the left eye in the morning. 1 mL 0 04/05/2021 Active Amoxicillin 500 MG Oral Capsule (Amoxil) take 4 capsules by mouth 1 HOUR PRIOR TO DENTAL APPOINTMENT 4 Cap 0 05/11/2021 Active Atenolol 50 MG Oral Tablet (Tenormin)Indicat ions:Palpitations ,HTN, goal below 140/90 1 pill twice daily 180 Tablet 2 02/28/2023 Active Pantoprazole Sodium 40 MG Oral Tablet Delayed Release (Protonix)Indicat ions:Gastroesopha geal reflux disease without esophagitis Take 1 Tablet by mouth in the morning. 90 Tablet 1 03/26/2023 Active Losartan Potassium 100 MG Oral Tablet (Cozaar) Take 1 Tablet by mouth in the morning. 90 Tablet 1 06/24/2023 Active Pravastatin Sodium 10 MG Oral Tablet [...] 1 drop in left eye twice daily. 0 Active PARoxetine HCl 10 MG Oral Tablet (pAXil) Take 1 Tablet by mouth in the morning. 90 Tablet 2 11/22/2023 Active PARoxetine HCl 10 MG Oral Tablet (pAXil) TAKE 1 TABLET DAILY IN THE MORNING 90 Tablet 1 06/05/2023 Discontinue d(Refill) PARoxetine HCl 10 MG Oral Tablet (pAXil) Take 1 Tablet by mouth in the morning. In the morning.. 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 Palpitations 04/16/2014 09/12/2017 Sleep apnea 12/16/2012 02/09/2013 Genetic Sleep Disorder Resea [facility] Other*[id number] 06/25/2011 02/22/2016 Herpes zoster 08/19/2006 10/15/2007 Hypoxemia [...] as of this encounter (statuses as of 11/22/2023) Immunizations Name Administration Dates Next Due COVID-19 mRNA, LNP-s, No Pre serve, 2-Dose Series ([employer] 11/09/2020,10/19/2020 Pneumococcal Conjugate Vacc, 13 Valent (Prevnar) 03/09/2016 Pneumococcal Polysaccharide PPV23 (Pneumovax) 10/15/2007,04/17/2002,04/15/1992 Season Influenza, Quad, PF, Adjuvanted, 65+ Yrs, IM (FLUAD) 05/11/2020 Seasonal Influenza Virus Vac cine, Unspecified Formulation 05/10/1998,05/04/1997 Seasonal Influenza, PF, 6 M & above, IM , (FluLaval or Fluzone) 05/13/2018,04/25/2017 Seasonal Influenza, Quadriva lent Hd (Fluzone Hd) 04/18/2023,05/08/2022,05/04/2021 Seasonal Influenza, Quadriva lent, No Preserve, IM 05/04/2016,05/12/2015 Seasonal Influenza, Split, I IV3, With Preserve, Inj 04/28/2014,05/05/2013,04/16/2012,05/04,05/04/2010,04/21/2008,05/14/2007 ,05/15/2006,05/10/2003,05/26/2002,05/22,07/02/2000,04/27/1999 Seasonal Influenza, Trivalen t, Adjuvanted, 65+ yrs 05/01/2019 TD - Tetanus/Diptheria (ADULT) 04/27/1999 TD, Preservative Free 04/07/2008 documented as of [...] encounter Miscellaneous Notes * Telephone Encounter - Andrew Garcia [facility] - 11/22/2023 12:09 PM EDTSigned Prescriptions: Disp Refills PARoxetine HCl 10 MG Oral Tablet (pAXil) 90 Tab*2 Sig: Take 1 Tablet by mouth in the morning.Authorizing Provider: ELISSA PAUL User: ANDREW GARCIA * Addendum Note - Andrew Garcia [facility] - 11/22/2023 12:09 PM EDTAddended by: ANDREW GARCIA on: 11/22/2023 12:09 PM Modules accepted: Orders * Telephone Encounter - Andrew Garcia RPh - 11/22/2023 12:09 PM EDT Rerouted rx to new pharmacy as requested. Thank you, Andrew Garcia, PharmD Clinical Pharmacist [facility] (formerly [facility]) [phone] 11/22/2023, 12:09 PM * Addendum Note - Naila Moran CPhT - 11/22/2023 11:57 AM EDTAddended by: NAILA MORAN on: 11/22/2023 11:57 AM Modules accepted: Orders * Telephone Encounter - Naila Moran CPhT - 11/22/2023 11:56 AM EDT Please reroute Rx to [facility] [place]. Pending Prescriptions: Disp Refills PARoxetine HCl 10 MG Oral Tablet (pAXil) 90 Tab*2 Sig: Take 1 Tablet by mouth in the morning. In the morning.. Last Visit: 07/05/2023 (in office), Visit date not found (telemedicine) 01/16/2024 If no future appointments scheduled, and last appointment is greater than a year ago, please schedule patient for a follow-up appointment Last date the medication was ordered: [id number] Patient Phone Numbers Labs: Lab Results Component Value Date/Time CREAT 0.9 12/25/2022 01:56 PM CREAT 1.0 05/04/2020 09:15 AM POTASSIUM 4.6 12/25/2022 01:56 PM POTASSIUM 4.1 05/04/2020 09:15 AM POTASSIUM 4.4 06/22/1996 03:05 PM TSH 1.58 12/16/2020 09:09 AM TSH 1.38 12/13/2017 02:15 PM TSH 1.55 06/22/1996 03:05 PM LDLCALC 62 07/01/2023 09:13 AM LDLCALC 70 05/04/2020 09:23 AM LDLDIRECT 85 06/12/2022 09:04 AM LDLDIRECT NOT APPLICABLE 05/04/2020 09:23 AM LDLDIRECT 121 04/20/2011 01:47 PM ALT 14 06/12/2022 09:04 AM ALT 17 05/04/2020 09:15 AM HGBA1C 5.4 04/20/2011 01:47 PM * Telephone Encounter - Silva Macedo [facility] - 11/22/2023 7:54 AM EDTSigned Prescriptions: Disp Refills PARoxetine HCl 10 MG Oral Tablet (pAXil) 90 Tab*2 Sig: Take 1 Tablet by mouth in the morning. In the morning..Authorizing Provider: ELISSA PAUL User: SILVA MACEDO documented in this encounter Plan of Treatment Upcoming Encounters Date Type Department Care Team (Late st Contact Info) Description 12/20/2023 2:30 PM EDT Cardiac Studies Cardiac Studies, [facility] [address] [facility] [place] [address] 01/16/2024 1:20 PM EDT Office Visit [facility] [address] [facility] [address] Elissa Paul MD [address] [place] [address] Health Maintenance Due Date Last Done Comments Zoster Vaccines (1 of 2) 1988 DTaP,Tdap,and Td Vaccines (1 - Tdap) 04/08/2008 04/07/2008, 04/27/1999 COVID-19 Vaccine (3 - 2022- season) 2023 11/09/2020, 10/19/2020 Depression Screening 12/26/2023 12/25/2022 Albumin/Creatinine Ratio 07/01/2024 07/01/2023 CKD HGB USE SMARTSET 16722 07/01/202407/01, 06/12/2022, 06/12/2022, Additional history exists CKD PHOS USE SMARTSET 17432 07/01/202406/21, 06/12/2022, 06/19/2021, Additional history exists Mammogram 01/08/2025 01/08/2023, 11/2020, 02/09/2020, Additional history exists DXA Scan 01/13/2025 01/13/2018, 0 02/2013, 07/29/2012, Additional history exists Pneumococcal Vaccine: [...] documented as of this encounter Care Teams Statistical Methods Professor Relationship Specialty Start Date End Date Elissa Paul MD [address] [place] [address] PCP - General 12/25/02 documented as of this encounter
--- OUTSIDE RECORDS SUMMARY | 2024-04-14 05:39 | External Medical Summary | Summary of Care ---
Author Name Unknown Organization [facility] Address [address] [place] [address] Phone [phone] Care Team Providers Care Corporate Tax Preparer Name Role Phone Elissa Paul MD Primary Care Provider +1- [phone] Reason for Visit * Reason Comments eRx-Medication Refill Encounter Details Date Type Department Care Team (Late st Contact Info) Description 12/23/2023 Refill [facility] [address] [place] [address] Elissa Paul MD [address] [place] [address] Encounter for long-term (current) use of medications* Allergies Active Allergy Reactions Criticality Noted Date Comments Rich Inhibitors Cough Low 04/21/2008 Morphine And Codeine Nausea/vomiting Low 04/27/1999 GI distress when patient takes PO. She can tolerate IV. Sulfa Antibiotics Rash Low 11/30/2010 Sulindac Nausea/vomiting Low 04/17/2002 Ezetimibe 03/13/2018 GI distress documented as of this encounter (statuses as of 02/12/2024) Medications Medication Sig Dispensed Refills Start Date [...] in the morning. 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 Palpitations 04/16/2014 09/12/2017 Sleep apnea 12/16/2012 02/09/2013 Genetic Sleep Disorder Resea [facility] Other*[id number] 06/25/2011 02/22/2016 Herpes zoster 08/19/2006 10/15/2007 Hypoxemia [...] as of this encounter (statuses as of 02/12/2024) Immunizations Name Administration Dates Next Due COVID-19 mRNA, LNP-s, No Pre serve, 2-Dose Series ([employer]) 11/09/2020,10/19/2020 Pneumococcal Conjugate Vacc, 13 Valent (Prevnar) [...] encounter Miscellaneous Notes * Telephone Encounter - Honorio Kang RPh - 02/12/2024 10:18 AM EDT Received message to contact patient regarding scheduling labs due to be completed. However, [facility] had labs completed in the interim. No further action required. Thanks, Honorio Kang Rph, Pharm D. Clinical Pharmacist [facility] [phone] 02/12/2024,10:18 AM * Telephone Encounter - Estella Avalos RP - 12/24/2023 1:52 PM EDTSigned Prescriptions: Disp Refills Losartan Potassium 100 MG Oral Tablet (Coz*90 Tab*0 Sig: TAKE 1 TABLET BY MOUTH DAILY IN THE MORNING Authorizing Provider: ELISSA PAUL Ordering User: ESTELLA AVALOS * Telephone Encounter - Estella Avalos RP - 12/24/2023 1:51 PM EDT Provided 90 days supply with 0 refill(s). Per refill protocol patient should have BMP on file within past year. Reviewed AMP report, Care Gaps/Health Maintenance, medications list, and for any routine labs typically ordered for this patient. Lab orders placed. Please contact patient to advise of labs ordered for blood draw. Fasting is not required. Advise toobtain labs before requesting the next refill. Thanks, Estella Avalos Clinical Pharmacist [facility] ([facility]) [phone] 12/24/2023, 1:52 PM documented in this encounter Plan of Treatment Upcoming Encounters Date Type Department Care Team (Late st Contact Info) Description 03/05/2024 2:30 PM EDT Cardiac Studies Cardiac Studies, [facility] [address] [place] [address] 07/31/2024 2:40 PM EST Office Visit [facility] [address] [facility] [address] Elissa Paul MD [address] [place] [address] Health Maintenance Due Date Last Done Comments Zoster Vaccines (1 of 2) 1988 DTaP,Tdap,and Td Vaccines (1 - Tdap) 04/08/2008 04/07/2008, 04/27/1999 COVID-19 Vaccine (3 - season) 2023 11/09/2020, 10/19/2020 Influenza Vaccine (FLU shot) (#1) 2024 04/18/2023, 05/08/2022, 05/04/2021, Additional history exists Albumin/Creatinine Ratio 07/01/2024 07/01/2023 CKD HGB USE SMARTSET 75460 07/01/202407/01, 06/12/2022, 06/12/2022, Additional history exists CKD PHOS USE SMARTSET 33036 07/01/202406/21, 06/12/2022, 06/19/2021, Additional history exists Mammogram [...] Not on filedocumented as of this encounter Results * BASIC METABOLIC PANEL (01/16/2024 2:17 PM EDT) BUN 10 6 - 20 mg/dL 01/17/2024 6:13 AM EDT [facility] Creatinine 0.8 0.5 - 1.0 mg/dL 01/17/2024 6:13 AM EDT [facility] Estimated Glomerular Filtration Rate 68 >=60 mL/min 01/17/2024 6:13 AM EDT [facility] Comment:eGFR is calculated b ased on the CKD-EPI 2020 equation Sodium 137 135 - 146 mmol/L 01/17/2024 6:13 AM EDT [facility] Potassium 4.2 3.5 - 5.1 mmol/L 01/17/2024 6:13 AM EDT [facility] Chloride 102 98 - 107 mmol/L 01/17/2024 6:13 AM EDT [facility] CO2 25 22 - 32 mmol/L 01/17/2024 6:13 AM EDT [facility] Anion Gap 10 7 - 15 mmol/L 01/17/2024 6:13 AM EDT [facility] Glucose 104 70 - 120 mg/dL 01/17/2024 6:13 AM EDT [facility] Calcium 9.7 8.4 - 10.2 mg/dL 01/17/2024 6:13 AM EDT [facility] Blood Venous blood specimen / Unknown Venipuncture / Unknown 01/16/2024 2:17 PM EDT 01/16/2024 2:17 PM EDT Estella Avalos [facility] LAB BLOOD ORDERABLES [facility] [address] [place] [address] documented in this encounter Visit Diagnoses Diagnosis Encounter for long-term (current) use of medications- Primary Encounter for long-term (current) use of other medications documented in this encounter Additional Health Concerns Infection Onset Date Last Indicated Resolved Time COVID-19 (confirmed) 11/29/2021 11/29/2021 documented as of this encounter Care Teams Corporate Tax Preparer Relationship Specialty Start Date End Date Elissa Paul MD [address] [place] [address] PCP - General 12/25/02 documented as of this encounter
--- OUTSIDE RECORDS SUMMARY | 2024-04-14 05:39 | External Medical Summary | Summary of Care ---
Author Name Unknown Organization [facility] Address [address] [facility] [place] [address] Phone [phone] Care Team Providers Care Pelts Skinner Name Role Phone Shiv Spring MD Primary Care Provider +1- [phone] Reason for Visit * Reason Onset Date Comments Test Results 03/06/2024 Encounter Details Date Type Department Care Team (Late st Contact Info) Description 03/06/2024 Telephone Cardiology, [facility] [address] [place] [address] Jamie Gomez PA-C [address] [place] [address] Test Results Allergies Active Allergy Reactions Criticality Noted Date Comments Rich Inhibitors Cough Low 04/21/2008 Morphine And Codeine Nausea/vomiting Low 04/27/1999 GI distress when patient takes PO. She can tolerate IV. Sulfa Antibiotics Rash Low 11/30/2010 Sulindac Nausea/vomiting Low 04/17/2002 Ezetimibe 03/13/2018 GI distress documented as of this encounter (statuses as of 03/11/2024) Medications Medication Sig Dispensed Refills Start Date [...] THE MORNING 90 Tablet 2 01/30/2024 Active Benzonatate 100 MG Oral CapsuleIndications: Sinobronchitis Take 1 Capsule by mouth 3 times a day as needed for Cough. 30 Capsule 1 02/05/2024 Active Montelukast Sodium 10 MG Oral Tablet (Singulair)Indicati ons:Sinobronchitis Take 1 Tablet by mouth in the morning. 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 10/17/2018 Palpitations 04/16/2014 09/12/2017 Sleep apnea 12/16/2012 02/09/2013 Genetic Sleep Disorder Resea [facility] Other*[id number] 06/25/2011 02/22/2016 Herpes zoster 08/19/2006 10/15/2007 Hypoxemia [...] as of this encounter (statuses as of 03/11/2024) Immunizations Name Administration Dates Next Due COVID-19 mRNA, LNP-s, No Pre serve, 2-Dose Series ([employer]) 11/09/2020,10/19/2020 Pneumococcal Conjugate Vacc, 13 Valent (Prevnar) [...] encounter Miscellaneous Notes * Telephone Encounter - Juan Todd LPN - 03/11/2024 3:15 PM EDT Called patient and left Jamie's message to make patient aware. * Telephone Encounter - Jamie Gomez PA-C - 03/11/2024 3:13 PM EDT Okay to continue dorzolamide timolol eyedrops Jamie Gomez PA-C Department of Cardiology * Telephone Encounter - Juan Todd LPN - 03/11/2024 3:02 PM EDT Called patient to follow up on unread [employer] message. Patient verbalized understanding. Patient denied any concerns with edema. Patient did ask the eyedrop she is currently taking on medication listnote could cause heart issues and she is verifying if she should be using them. Dorzolamide HCl-Timolol . * Telephone Encounter - Juan Todd LPN - 03/06/2024 1:31 PM EDT Sent patient a [employer] message to make aware. ----- Message from Jamie Gomez sent at 03/06/2024 1:30 PM EDT ----- March 05, 2024 TTE Interpretation Summary (as per Dr. Scherer): The LV wall thickness is normal. The left ventricular wall motion is normal. The qualitative LV ejection fraction is 55-59% (normal).The left atrium is moderately enlarged. The left ventricular diastolic function is mildly abnormal (grade I). Moderate aortic valve sclerosis is present. Aortic stenosis is absent. Mild mitral regurgitation is present. The estimated pulmonary artery systolic pressure is 38 mm Hg (upper limit of normal to mildly elevated). Echo findings are similar to prior though estimated pulmonary pressures have increased mildly, now at the upper limit of normal to mildly elevated. Any fluid retention? If fluid retention is present and/or blood pressure elevated on follow-up would consider addition of low-dose diuretic a few days per week. documented in this encounter Plan of Treatment Upcoming Encounters Date Type Department Care Team (Late st Contact Info) Description 07/31/2024 2:40 PM EST Office Visit [facility] [address] [place] [address] Shiv Spring MD [address] [place] [address] Health Maintenance Due Date Last Done Comments Zoster Vaccines (1 of 2) 1988 DTaP,Tdap,and Td Vaccines (1 - Tdap) 04/08/2008 04/07/2008, 04/27/1999 Adult Wellness Visit 02/22/2022 02/22/2021 COVID-19 Vaccine (3 - season) 2023 11/09/2020, 10/19/2020 Influenza Vaccine (FLU shot) (#1) 2024 04/18/2023, 05/08/2022, 05/04/2021, Additional history exists Albumin/Creatinine Ratio 07/01/2024 07/01/2023 CKD HGB USE SMARTSET 89516 07/01/202407/01, 06/12/2022, 06/12/2022, Additional history exists CKD PHOS USE SMARTSET 20225 07/01/202406/21, 06/12/2022, 06/19/2021, Additional history exists Mammogram [...] documented as of this encounter Care Teams Pelts Skinner Relationship Specialty Start Date End Date Shiv Spring MD [address] [place] [address] PCP - General 12/25/02 documented as of this encounter
--- OUTSIDE RECORDS SUMMARY | 2024-04-14 05:39 | External Medical Summary | Summary of Care ---
Author Name Unknown Organization [facility] Address [address] [address] Phone [phone] Care Team Providers Care Washer And Capper Machine Operator Name Role Phone Shiv Spring MD Primary Care Provider +1- [phone] Reason for Visit * Reason Onset Date Comments Medication Refill 02/28/2024 Encounter Details Date Type Department Care Team (Late st Contact Info) Description 02/28/2024 Refill [facility] [address] [place] [facility] [place] [address] Lillie Arechiga PA-C [address] [place] [address] Sinobronchitis Allergies Active Allergy Reactions Criticality Noted Date Comments Rich Inhibitors Cough Low 04/21/2008 Morphine And Codeine Nausea/vomiting Low 04/27/1999 GI distress when patient takes PO. She can tolerate IV. Sulfa Antibiotics Rash Low 11/30/2010 Sulindac Nausea/vomiting Low 04/17/2002 Ezetimibe 03/13/2018 GI distress documented as of this encounter (statuses as of 02/28/2024) Medications Medication Sig Dispensed Refills Start Date [...] 2 01/30/2024 Active Benzonatate 100 MG Oral CapsuleIndication s:Sinobronchitis Take 1 Capsule by mouth 3 times a day as needed for Cough. 30 Capsule 1 02/05/2024 Active Montelukast Sodium 10 MG Oral Tablet (Singulair)Indica tions:Sinobronchi tis Take 1 Tablet by mouth in the morning. 30 Tablet 02/28/2024 Active Montelukast Sodium 10 MG Oral Tablet (Singulair)Indica tions:Sinobronchi tis Take 1 Tablet by mouth in the morning. 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 Authorizing Provider: LILLIE ARECHIGA * Telephone Encounter - Gilbert Hinojosa OSA - 02/28/2024 12:44 PM EDT Did you pend patient's preferred pharmacy and medication before forwarding?yes Pharmacy: [id number] [address] [facility] Pending Prescriptions: Disp Refills Montelukast Sodium 10 MG Oral Tablet (Sin*30 Tab*0 Sig: Take 1 Tablet by mouth in the morning. Last Visit: 02/05/2024 (in office), Visit date not found (telemedicine) Next Visit: 07/31/2024 If no future appointments scheduled, and last appointment is greater than a year ago, please schedule patient for a follow-up appointment Last date the medication was ordered: [id number] day request Is this request for a controlled substance?No Urine Drug Screen:No results found. However, due to the size of the patient record, not all encounters were searched. Please check Results Review for a complete set of results. Patient Phone Numbers Labs: Lab Results Component Value Date/Time CREAT 0.8 01/16/2024 02:17 PM CREAT 1.0 05/04/2020 09:15 AM POTASSIUM 4.2 01/16/2024 02:17 PM POTASSIUM 4.1 05/04/2020 09:15 AM POTASSIUM [...] 09:15 AM HGBA1C 5.4 04/20/2011 01:47 PM documented in this encounter Plan of Treatment Upcoming Encounters Date Type Department Care Team (Late st Contact Info) Description 03/05/2024 2:30 PM EDT Cardiac Studies Cardiac Studies, [facility] [address] [facility] [place] [address] 07/31/2024 2:40 PM EST Office Visit [facility] [address] [place] [facility] [place] [address] Shiv Spring MD [address] [place] [address] Health Maintenance Due Date Last Done Comments Zoster Vaccines (1 of 2) 1988 DTaP,Tdap,and Td Vaccines (1 - Tdap) 04/08/2008 04/07/2008, 04/27/1999 Adult Wellness Visit 02/22/2022 02/22/2021 COVID-19 Vaccine (3 - 24 season) 2023 11/09/2020, 10/19/2020 Influenza Vaccine (FLU shot) (#1) 2024 04/18/2023, 05/08/2022, 05/04/2021, Additional history exists Albumin/Creatinine Ratio 07/01/2024 07/01/2023 CKD HGB USE SMARTSET 51228 07/01/202407/01, 06/12/2022, 06/12/2022, Additional history exists CKD PHOS USE SMARTSET 32563 07/01/202406/21, 06/12/2022, 06/19/2021, Additional history exists Mammogram [...] as of this encounter Visit Diagnoses Diagnosis Sinobronchitis Unspecified sinusitis (chronic) documented in this encounter Additional Health Concerns Infection Onset Date Last Indicated Resolved Time COVID-19 (confirmed) 11/29/2021 11/29/2021 documented as of this encounter Care Teams Washer And Capper Machine Operator Relationship Specialty Start Date End Date Shiv Spring MD [address] [place] [address] PCP - General 12/25/02 documented as of this encounter
--- OUTSIDE RECORDS SUMMARY | 2024-04-14 05:39 | External Medical Summary | Summary of Care ---
Author Name Unknown Organization [facility] Address [address] [place] [address] Phone [phone] Care Team Providers Care Cook [employer] Name Role Phone Shiv Spring MD Primary Care Provider +1- [phone] Reason for Visit * Reason Comments Outpatient Testing Encounter Details Date Type Department Care Team (Late st Contact Info) Description 01/16/2024 2:40 PM EDT Laboratory Laboratory, [place] [address] [place] [address] [place] [address] [place], [place] [id number] Encounter for long-term (current) use of medications Allergies Active Allergy Reactions Criticality Noted Date Comments Rich Inhibitors Cough Low 04/21/2008 Morphine And Codeine Nausea/vomiting Low 04/27/1999 GI distress when patient takes PO. She can tolerate IV. 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 Never true 12/25/2022 Utilities Answer Date Recorded Do you have trouble paying y our heating, water, or electric bill? (Adult - for ages 18 years and over) Not on file 01/07/2024 Is your family able to pay t he heat, water, or electric bill? (Household - for ages 0-17 years) Not on file 01/07/2024 Does your family have access to good internet? (Household - for ages 0-17 years) Not on file 01/07/2024 Social Connections Answer Date Recorded How often do you feel lonely or isolated from those around you? (Adult - for ages 18 years and over) Not on file 01/07/2024 Sex and Gender Information Value Date Recorded [...] 2:30 PM EDT Cardiac Studies Cardiac Studies, [facility] [address] [facility] [place] [address] 07/31/2024 2:40 PM EST Office Visit [facility] [address] [place] [id number] Shiv Spring MD [address] [place] [address] Pending Results Name Type Priority Associated Diagnoses Date /Time BASIC METABOLIC PANEL Lab Routine Encounter for long-term (current) use of medications 01/16/2024 2:17 PM EDT Health Maintenance Due Date Last Done Comments Zoster Vaccines (1 of 2) 1988 DTaP,Tdap,and Td Vaccines (1 - Tdap) 04/08/2008 04/07/2008, 04/27/1999 COVID-19 Vaccine (3 - 2022-24 season) 2023 11/09/2020, 10/19/2020 Albumin/Creatinine Ratio 07/01/2024 07/01/2023 CKD HGB USE SMARTSET 45508 07/01/202407/01, 06/12/2022, 06/12/2022, Additional history exists CKD PHOS USE SMARTSET 88780 07/01/202406/21, 06/12/2022, 06/19/2021, Additional history exists Mammogram [...] as of this encounter Visit Diagnoses Diagnosis Encounter for long-term (current) use of medications Encounter for long-term (current) use of other medications documented in this encounter Additional Health Concerns Infection Onset Date Last Indicated Resolved Time COVID-19 (confirmed) 11/29/2021 11/29/2021 documented as of this encounter Care Teams Cook At School Relationship Specialty Start Date End Date Shiv Spring MD [address] [facility] [place] [id number] PCP - General 12/25/02 documented as of this encounter
--- OUTSIDE RECORDS SUMMARY | 2024-04-14 05:40 | External Medical Summary | Summary of Care ---
Author Name Unknown Organization [facility] Address [address] [place] [address] Phone [phone] Care Team Providers Care Criminology Teacher Name Role Phone Elissa Paul MD Primary Care Provider +1- [phone] Reason for Visit * Reason Onset Date Comments Medication Refill 11/21/2023 Encounter Details Date Type Department Care Team (Late st Contact Info) Description 11/21/2023 Refill [facility] [address] [place] [address] Elissa Paul MD [address] [place] [address] Allergies Active Allergy Reactions Criticality [...] In the morning.. 90 Tablet 2 11/22/2023 Active PARoxetine HCl 10 MG Oral Tablet (pAXil) TAKE 1 TABLET DAILY IN THE MORNING 90 Tablet 1 06/05/2023 Discontinue d(Refill) documented as of this encounter [...] apnea 12/16/2012 02/09/2013 Genetic Sleep Disorder Resea [facility] Other*[id number] 06/25/2011 02/22/2016 Herpes zoster 08/19/2006 10/15/2007 Hypoxemia [...] mRNA, LNP-s, No Pre serve, 2-Dose Series (Personalis) 11/09/2020,10/19/2020 Pneumococcal Conjugate Vacc, 13 Valent (Prevnar) [...] as of this encounter Miscellaneous Notes * Addendum Note - Naila Moran CPhT - 11/22/2023 11:57 AM EDTAddended by: NAILA MORAN on: 11/22/2023 11:57 AM Modules accepted: Orders * Telephone Encounter - Naila Moran CPhT - 11/22/2023 11:56 AM EDT Please reroute Rx to [facility] [facility] [place]. Pending Prescriptions: Disp Refills [...] appointment Last date the medication was ordered: [id number] Patient Phone Numbers Labs: Lab Results Component [...] PM * Telephone Encounter - Silva Macedo formerly [facility] - 11/22/2023 7:54 AM EDTSigned Prescriptions: Disp Refills PARoxetine HCl 10 MG Oral Tablet (pAXil) 90 Tab*2 Sig: Take 1 Tablet by mouth in the morning. In the morning..Authorizing Provider: ELISSA PAUL User: SILVA MACEDO documented in this encounter Plan of Treatment Upcoming Encounters Date Type Department Care Team (Late st Contact Info) Description 12/20/2023 2:30 PM EDT Cardiac Studies Cardiac Studies, [facility] [address] [facility] [place] [address] 01/16/2024 1:20 PM EDT Office Visit [facility] [address] [place] [address] Elissa Paul MD [address] [place] [facility] [place] [address] Health Maintenance Due Date Last Done Comments Zoster Vaccines (1 of 2) 1988 DTaP,Tdap,and Td Vaccines (1 - Tdap) 04/08/2008 04/07/2008, 04/27/1999 COVID-19 Vaccine (3 - 2022-24 season) 2023 11/09/2020, 10/19/2020 Depression Screening 12/26/2023 12/25/2022 Albumin/Creatinine Ratio 07/01/2024 07/01/2023 CKD HGB USE SMARTSET 12850 07/01/202407/01, 06/12/2022, 06/12/2022, Additional history exists CKD PHOS USE SMARTSET 91371 07/01/202406/21, 06/12/2022, 06/19/2021, Additional history exists Mammogram [...] documented as of this encounter Care Teams Criminology Teacher Relationship Specialty Start Date End Date Elissa Paul MD [address] [place] [address] PCP - General 12/25/02 documented as of this encounter
--- OUTSIDE RECORDS SUMMARY | 2024-04-14 05:40 | External Medical Summary | Summary of Care ---
Author Name Unknown Organization [facility] Address [address] [place] [address] Phone [phone] Care Team Providers Care Toll Patrolman Name Role Phone Elissa Paul MD Primary Care Provider +1- [phone] Reason for Visit * Reason Onset Date Comments Medication Refill 11/21/2023 Encounter Details Date Type Department Care Team (Late st Contact Info) Description 11/21/2023 Refill [facility] [address] [place] [address] Elissa Paul MD [address] [place] [address] Allergies Active Allergy Reactions Criticality [...] apnea 12/16/2012 02/09/2013 Genetic Sleep Disorder Resea [facility] Other*[id number] 06/25/2011 02/22/2016 Herpes zoster 08/19/2006 10/15/2007 Hypoxemia [...] mRNA, LNP-s, No Pre serve, 2-Dose Series (Kukupia) 11/09/2020,10/19/2020 Pneumococcal Conjugate Vacc, 13 Valent (Prevnar) [...] encounter Miscellaneous Notes * Telephone Encounter - Silva Macedo [facility] - 11/22/2023 7:54 AM EDTSigned Prescriptions: Disp Refills PARoxetine HCl 10 MG Oral Tablet (pAXil) 90 Tab*2 Sig: Take 1 Tablet by mouth in the morning. In the morning..Authorizing Provider: ELISSA PAUL User: SILVA MACEDO documented in this encounter Plan of Treatment Upcoming Encounters Date Type Department Care Team (Late st Contact Info) Description 12/20/2023 2:30 PM EDT Cardiac Studies Cardiac Studies, [facility] [address] [facility] [place] [address] 01/16/2024 1:20 PM EDT Office Visit [facility] [address] [place] [address] Elissa Paul [facility] [address] [facility] [place] [address] Health Maintenance Due Date Last Done Comments Zoster Vaccines (1 of 2) 1988 DTaP,Tdap,and Td Vaccines (1 - Tdap) 04/08/2008 04/07/2008, 04/27/1999 COVID-19 Vaccine (3 - 2022-24 season) 2023 11/09/2020, 10/19/2020 Depression Screening 12/26/2023 12/25/2022 Albumin/Creatinine Ratio 07/01/2024 07/01/2023 CKD HGB USE SMARTSET 71113 07/01/202407/01, 06/12/2022, 06/12/2022, Additional history exists CKD PHOS USE SMARTSET 21071 07/01/202406/21, 06/12/2022, 06/19/2021, Additional history exists Mammogram [...] documented as of this encounter Care Teams Toll Patrolman Relationship Specialty Start Date End Date Elissa Paul MD [address] [place] [address] PCP - General 12/25/02 documented as of this encounter
--- NOTE | 2024-04-14 06:51 | XRay Report ---
XR chest 1V portable HISTORY: 83 years-old Female fall acute chest trauma status post fall COMPARISON: 01/19/2019 TECHNIQUE: AP view of the chest FINDINGS: Cardiomediastinal and hilar silhouettes are within normal limits. 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 No pneumothorax, pleural effusion or airspace consolidation. IMPRESSION: No acute process of the chest. ACT 112: Negative or not required by law. The above report was generated using voice recognition software. It may contain grammatical, syntax o r spelling errors. Electronically signed by: Robert Brown M.D. 04/14/2024 6:49 AM
[2024-04-14] MEDS: LOSARTAN POTASSIUM 50 MG TAB PO SCH (08:19)
[2024-04-14] MEDS: CHOLECALCIFEROL 25 MCG (1000 UNITS) TAB PO SCH (08:20)
[2024-04-14] MEDS: PANTOprazole 40 MG TAB PO SCH (08:20)
[2024-04-14] MEDS: PARoxetine HCL 10 MG TAB PO SCH (08:20)
[2024-04-14] MEDS: MAGNESIUM OXIDE 400 MG TAB PO SCH (08:21)
[2024-04-14] MEDS: amLODIPine BESYLATE 5 MG TAB PO SCH (08:21)
[2024-04-14] MEDS: ASPIRIN 81 MG ECTAB PO SCH (08:21)
[2024-04-14 08:47] LABS: Hematocrit (blood only) 34.5 % (37.0-47.0); Hemoglobin 12.3 g/dl (12.0-16.0); Mean Corpuscular Hemoglobin 34.2 pg (25.0-34.0); Mean Corpuscular Hgb Conc 35.7 g/dL (32.0-36.0); Mean Corpuscular Volume 95.8 fL (80.0-100.0); Mean Platelet Volume 9.8 fL (9.4-12.4); Platelet Count 192 K/uL (130-400); RDW Standard Deviation 45.6 fL (36.4-46.3); White Blood Count 5.65 K/ul (4.8-10.8)
[2024-04-14 09:04] LABS: BUN Creatinine Ratio 10.9 (10-20); Calcium 9.3 mg/dl (8.6-10.3); Chol HDL Ratio 2.8 (0-5); Creatinine Clr Calc Pharmacy 63.5 ml/min; Est GFR (African American) 94.3 ml/min; Est GFR (Non-African American) 81.4 ml/min; Magnesium 1.7 mg/dl (1.7-2.4); Potassium 3.6 mmol/L (3.5-5.1)
[2024-04-14 09:18] LABS: Troponin I High Sensitivity 909.4 pg/ml (0-14)
[2024-04-14] MEDS: POTASSIUM CHLORIDE CRTAB 20 MEQ TABCR PO STA (09:32)
--- NOTE | 2024-04-14 10:26 | XRay Report ---
LEFT ANKLE 3 VIEWS CLINICAL HISTORY: Fall with left ankle injury. FINDINGS: 3 views of the left ankle are obtained. No prior studies are available for comparison at th e time of dictation. The skeletal structures are osteopenic. No fracture is seen. The ankle mortise i s intact. No joint effusion is identified. There are dorsal and plantar heel spurs. Soft tissue edema is seen around the ankle. There is atherosclerotic calcification of the residual arteries. IMPRESSION: Soft tissue swelling with no radiographic evidence of acute fracture. Electronically signed by: Beto Coronado M.D. 04/14/2024 10:25 AM
--- NOTE | 2024-04-14 10:45 | Hospitalist Progress Note ---
Date of Service April 14, 2024 Assessment & Plan (1) Fall from standing: Plan: Mechanical fall following missing while going to the parking lot Did not have any warning symptoms prior to the fall Injury to the head, left periorbital area, left hand and also left leg CT head: No acute intracranial abnormality or calvarial fracture. Left periorbital contusion. CT c-spine: There is no evidence of fracture or subluxation involving the cervical spine. Denies any more headache but has periorbital bruising MRI of the head has been negative (2) Facial hematoma: (3) Acute pain of left wrist: Plan: Patient is 83 year old female with PMH HTN, dyslipidemia, PSVT, PVCs, MATT stenosis CKD III, anxiety presented to ER with c/o fall missing 2 steps. Denies LOC. C/O pain to left forehead, left wrist, left knee and left ankle. Left wrist xray: No acute displaced fracture or dislocation. Lucent to the radial styloid should be correlated clinically to exclude an age-indeterminate nondisplaced fracture. Left ankle xray: No fracture In ER was placed in left wrist splint Will get Ortho evaluation-Appreciate input and recommendation Fall precautions PT/OT eval (4) Elevated troponin: Plan: NSTEMI No chest pain and/or palpitation Troponin: 70 -->289 Troponin went up to 910 And the patient remained asymptomatic EKG sinus rhythm, Q waves septal leads, T wave flattening septal leads per my interpretation In ER given 324mg aspirin ER physician spoke to production broacher form press operator, Dr Aguillon who recommended trending troponin and no heparin at this time R/O ACS. DDx NSTEMI Repeat EKG in am-Remained unremarkable Echo -LVEF was 55 to 60%, there is small sized basal inferior and posterior wall motion abnormality with hypokinesis of the segments, mild concentric LVH, moderate to severe MR, aortic valve sclerosis without significant valvular stenosis, trace tricuspid regurgitation and Doppler finding do not suggest pulmonary hypertension Lipid panel in am-Unremarkable, Will continue statin. In past history statin intolerance Continue aspirin, atenolol Cardiology consult-Appreciate input and recommendation (5) Hypomagnesemia: Plan: Magnesium: 1.6 In ER given 1GM magnesium sulfate Continue home magnesium oxide Magnesium lab in am (6) Acute hypokalemia: Plan: K: 3.4 Replace and monitor (7) HTN (hypertension): Plan: Continue amlodipine, atenolol, losartan (8) Dyslipidemia: Plan: Continue pravastatin (9) CKD (chronic kidney disease), stage III: Plan: Cr: 0.8. Was 0.8 with GFR: 68 in 01/16/24 Monitor renal functions (10) Anxiety: Plan: Continue paroxetine DVT Prophylaxis SQ Heparin Admission and Anticipated Discharge Date Admission Date: April 13, 2024 Subjective 04/14/2024 The patient was seen and examined in the telemetry unit She was admitted with a mechanical fall following missed a step Has had a head injury and left periorbital injury and also left wrist injury Denies any chest pain and/or palpitation prior to the incident or since admis katarzyna Review of Systems Review of Systems: All systems reviewed and are unremarkable except as noted below Physical Exam Physical Exam: Lying in bed without any acute distress Constitutional: well developed, well nourished, + ill appearing and + obese Eyes: + periorbital abnormality (Periorbital b ruising on left) ENMT: external ear and nose normal, oropharynx normal Neck: trachea midline, no thyromegaly Respiratory: no respiratory distress Auscultation: lungs clear to auscultation bilaterally Cardiovascular: Rate/Rhythm: regular rate, regular rhythm and + bradycardic Heart Sounds: normal S1 and normal S2; no murmur Extremities: no edema Gastrointestinal (Abdomen): Inspection/Auscultation: normal bowel sounds; abdomen not distended Percussion/Palpation: abdomen soft; abdomen nontender Musculoskeletal: Extremities: + wrist abnormality (Swollen left wrist with painful movements in all directions) Left Neurologic: normal touch/pain/proprioception and moves all extremities; no focal motor deficits Lymphatic: no cervical or axillary lymphadenopathy Results & Data Results & Data Vital Signs (Past 12 Hours) Vital Signs Temp Pulse Resp BP Pulse Ox O2 Del Method 04/14/24 08:12 36.6 C 55 L 18 163/84 H 94 Room Air 04/14/24 04:08 36.8 C 54 L 16 171/81 H 95 Room Air 04/14/24 00:08 36.4 C L 54 L 17 138/80 95 Room Air Laboratory Results Short CBC 04/13/24 04/13/24 04/14/24 Range/Units 16:21 17:17 08:30 WBC Cancelled 6.66 5.65 Hgb Cancelled 12.4 12.3 Hct Cancelled 36.6 L 34.5 L Plt Count Cancelled 197 192 BMP 04/13/24 04/14/24 16:21 08:30 Sodium 137 140 Potassium 3.4 L 3.6 Chloride 103 106 Carbon Dioxide 23 25 BUN 11 7 Creatinine 0.80 0.64 Glucose 112 H 102 H Calcium 9.7 9.3 Cardiac Enzymes 04/13/24 Range/Units 16:21 Total Creatine Kinase 64 (26-192) U/L Liver Function 04/13/24 Range/Units 16:21 Total Bilirubin 0.6 (0.2-1.0) mg/dl AST 21 (13-39) U/L ALT 12 (7-52) U/L Alkaline Phosphatase 69 (34-104) U/L Albumin 4.4 (3.4-5.0) gm/dl Medications Administered Current Inpatient Medications Acetaminophen (Acetaminophen 325 Mg Tab) 650 mg PO Q4H PRN PRN Reason: Pain or Fever Stop: 05/13/24 20:36 Last Admin: 04/14/24 01:49 Dose: 650 mg Amlodipine Besylate (Amlodipine Besylate 5 Mg Tab) 5 mg PO DAILY ANDRES Stop: 05/14/24 08:59 Last Admin: 04/14/24 08:21 Dose: 5 mg Aspirin (Aspirin 81 Mg Ectab) 81 mg PO DAILY ANDRES Stop: 05/14/24 08:59 Last Admin: 04/14/24 08:21 Dose: 81 mg Atenolol (Atenolol 50 Mg Tablet) 50 mg PO BID ANDRES Stop: 05/13/24 20:59 Last Admin: 04/14/24 09:31 Dose: 50 mg Dorzolamide HCl (Dorzolamide Hcl 2% Oph Soln 10 Ml Btl) 1 drops OPL BID ANDRES Stop: 05/13/24 20:59 Last Admin: 04/14/24 08:22 Dose: 1 drops Fluticasone Propionate (Fluticasone Propionate Na Spr 16 Gm Btl) 2 sprays KARLA DAILY PRN PRN Reason: Allergy Symptoms Stop: 05/13/24 20:36 Heparin Sodium (Porcine) (Heparin Sod 5,000 Unit/0.5 Ml Vial) 5,000 units SQ Q8 ANDRES Stop: 05/13/24 21:59 Last Admin: 04/14/24 06:06 Dose: 5,000 units Latanoprost (Latanoprost 0.005% Op Soln 2.5 Ml Btl) 1 drops OPL PM ANDRES Stop: 05/13/24 20:59 Last Admin: 04/13/24 21:56 Dose: 1 drops Losartan Potassium (Losartan Potassium 50 Mg Tab) 100 mg PO QAM ANDRES Stop: 05/14/24 08:59 Last Admin: 04/14/24 08:19 Dose: 100 mg Magnesium Oxide (Magnesium Oxide 400 Mg Tab) 400 mg PO DAILY ANDRES Stop: 05/14/24 08:59 Last Admin: 04/14/24 08:21 Dose: 400 mg Nitroglycerin (Nitroglycerin Sl 0.4 Mg/Tab Tab) 0.4 mg SL Q5M PRN PRN Reason: Chest Pain Stop: 05/13/24 20:36 Ondansetron HCl (Ondansetron Inj 2 Mg/Ml 2 Ml Vial) 4 mg IV Q6H PRN PRN Reason: Nausea Stop: 05/13/24 20:36 Pantoprazole Sodium (Pantoprazole 40 Mg Tab) 40 mg PO DAILY ANDRES Stop: 05/14/24 08:59 Last Admin: 04/14/24 08:20 Dose: 40 mg Paroxetine HCl (Paroxetine Hcl 10 Mg Tab) 10 mg PO QAM ANDRES Stop: 05/14/24 08:59 Last Admin: 04/14/24 08:20 Dose: 10 mg Polyethylene Glycol (Polyethylene (Miralax) 17 Gm Pack) 17 gm PO DAILY PRN PRN Reason: Constipation Stop: 05/13/24 20:36 Pravastatin Sodium (Pravastatin Sod 10 Mg Tab) 10 mg PO HS ANDRES Stop: 05/13/24 20:59 Last Admin: 04/13/24 21:57 Dose: 10 mg Vitamin D (Cholecalciferol 25 Mcg (1000 Units) Tab) 25 mcg PO DAILY ANDRES Stop: 05/14/24 08:59 Last Admin: 04/14/24 08:20 Dose: 25 mcg
--- NOTE | 2024-04-14 12:00 | Orthopedic Consultation ---
Date of Consultation April 14, 2024 Assessment & Plan (1) Fracture of left distal radius: Ice with easy wrap PT/OT A well molded Ortho-Glass splint was placed on the patient's left upper extremity. She was neurovascularly intact before and after application. Pain control p.o. medication Will follow-up as an outpatient in 7 to 10 days for cast placement Supervising Physician Co-Signing Physician Notes I, Dr. Mclaughlin, discussed the management with my PA. I reviewed my PAs note and agree with the documented findings and of medical decision making and plan of care I developed. History of Present Illness Reason for Consultation: Left wrist injury Requesting Physician: Kurt Mclaughlin MD Attending Physician: Richi Boyd MD History of Present Illness Patient is 83 year old female with PMH HTN, dyslipidemia, PSVT, PVCs, MATT stenosis CKD III, anxiety presented to ER with c/o fall. Patient states today was walking and looked around and caused her to miss 2 steps causing her to fall and hit left forehead and states has pain to left wrist and left knee. She denies LOC. Denies dizziness, palpitations, CP, or SOB prior to fall. She was able to get herself up and she drove to ER. She complains of pain to left forehead, pain to left wrist, left anterior knee as well as left ankle. Denies neck pain, back pain, shoulder or elbow pain, abdominal pain, hip pain. Denies pain to right upper or right lower extremity. She denies any CP or SOB or recent exertional CP or SOB. States in summer tripped over a hose and fell but states has not been having other recurrent falls and denies any dizziness, SOB, or CP prior to falls. Denies fever/chills, diaphoresis, N/V/D/C, MOE, dizziness, syncope, vision changes, neck pain, CP, SOB, orthopnea, palpitations, cough, sore throat, rhinorrhea, abdominal pain, paresthesias, weakness, extremity weakness, extremity edema, rashes, urinary symptoms. Allergies Allergy/AdvReac Type Severity Reaction Status Date / Time Sulfa (Sulfonamide Allergy Mild rash Verified 04/13/24 18:39 Antibiotics) JAMAAL Inhibitors AdvReac Unknown COUGH Unverified 04/13/24 18:39 morphine AdvReac Unknown N/V per Unverified 04/13/24 18:39 cardio note- tolerates IV morphine not PO oxycodone AdvReac Unknown upset Unverified 04/13/24 18:39 stomach/vomiting sulindac AdvReac Unknown NAUSEA Unverified 04/13/24 18:39 VOMITING ezetimibe [From Zetia] AdvReac Verified 04/13/24 18:39 Home Medications Medication Instructions Recorded Confirmed Type aspirin 81 mg tablet,delayed 81 mg PO DAILY 04/16/18 04/13/24 History release atenolol 50 mg tablet 50 mg PO BID 04/16/18 04/13/24 History cholecalciferol (vitamin D3) 25 1,000 units PO DAILY 04/16/18 04/13/24 History mcg (1,000 unit) tablet (Vitamin D3) fluticasone propionate 50 2 spray intranasal DAILY PRN 04/16/18 04/13/24 History mcg/actuation nasal Allergy Symptoms spray,suspension (Flonase Allergy Relief) losartan 100 mg tablet 100 mg PO QAM 04/16/18 04/13/24 History magnesium oxide 400 mg (241.3 mg 400 mg PO DAILY 04/16/18 04/13/24 History magnesium) tablet paroxetine HCl 10 mg tablet 10 mg PO QAM 04/16/18 04/13/24 History pravastatin 10 mg tablet 10 mg PO HS 04/16/18 04/13/24 History pantoprazole 40 mg tablet,delayed 40 mg PO DAILY 01/19/19 04/13/24 History release (Protonix) amlodipine 5 mg tablet 5 mg PO DAILY 09/21/19 04/13/24 History omega-3 fatty acids [Fish Oil] 1 tab PO DAILY 09/21/19 04/13/24 History dorzolamide 2 % eye drops 1 drp OPL BID 04/13/24 04/13/24 History latanoprost 0.005 % eye drops 1 drp OPL PM 04/13/24 04/13/24 History Patient History Medical History Irritable bowel syndrome Surgical History History of tubal ligation H/O eye surgery S/P rotator cuff repair H/O arthroscopic knee surgery Hx of appendectomy Previous section Family History Father Bladder cancer Social History Smoking Status: Former smoker Tobacco Type: Cigarettes Smoking End Date: approx 1964; Hx Alcohol Use: Yes Alcohol type: wine Hx Substance Use: No Preferred Language: Divehi Communication Ability: Effective Receiver Stocker Required: No Beliefs That Will Affect Care: Ep[employer] marital status: / Current Living Situation: Alone Feels Safe at Home: Yes Safety Concerns: Feels Safe At This Time Assistive Devices: None Review of Systems Review of Systems: All systems reviewed & are unremarkable except as noted in Subjective Physical Exam Physical Exam: Left wrist: Patient has tenderness to palpation over the dorsal surface of the left distal radius with visible edema. There is no erythema or ecchymosis. No palpable deformity. She has referred pain to this area with active wrist flexion extension in order ulnar and radial deviation. She is able to make complete fist. She is able to resist compression of digits 2 through 5. She has referred pain with resisted extension at the MCP and IP joint of the thumb. She is able to detect light sensation to touch over the pads of all digits. Her peripheral pulses are 2+. Her capillary fill is less than 2 seconds. She is neurovascularly intact. Results & Data Vital Signs (Past 12 Hours) Vital Signs Temp Pulse Resp BP BP Pulse Ox O2 Del Method 04/14/24 11:52 36.4 C L 52 L 18 153/79 H 95 Room Air 04/14/24 08:12 36.6 C 55 L 18 163/84 H 94 Room Air 04/14/24 04:08 36.8 C 54 L 16 171/81 H 95 Room Air 04/14/24 00:08 36.4 C L 54 L 17 138/80 95 Room Air Diagnostic Findings Laboratory Results WBC 5.65 K/ul (4.8-10.8) 04/14/24 08:30 RBC 3.60 M/uL (4.20-5.40) L 04/14/24 08:30 Hgb 12.3 g/dl (12.0-16.0) 04/14/24 08:30 Hct 34.5 % (37.0-47.0) L 04/14/24 08:30 MCV 95.8 fL (80.0-100.0) 04/14/24 08:30 MCH 34.2 pg (25.0-34.0) H 04/14/24 08:30 MCHC 35.7 g/dL (32.0-36.0) 04/14/24 08:30 RDW Std Deviation 45.6 fL (36.4-46.3) 04/14/24 08:30 RDW Coeff of [place] 13.0 % (11.5-14.5) 04/14/24 08:30 Plt Count 192 K/uL (130-400) 04/14/24 08:30 MPV 9.8 fL (9.4-12.4) 04/14/24 08:30 Immature Gran % (Auto) 0.5 % 04/13/24 17:17 Neut % (Auto) 62.1 % 04/13/24 17:17 Lymph % (Auto) 25.7 % 04/13/24 17:17 [place] % (Auto) 9.5 % 04/13/24 17:17 Eos % (Auto) 1.7 % 04/13/24 17:17 Baso % (Auto) 0.5 % 04/13/24 17:17 Neut # (Auto) 4.15 K/uL (1.40-6.50) 04/13/24 17:17 Lymph # (Auto) 1.71 K/uL (1.20-3.40) 04/13/24 17:17 [place] # (Auto) 0.63 K/uL (0.11-0.59) H 04/13/24 17:17 Eos # (Auto) 0.11 K/uL (0.00-0.50) 04/13/24 17:17 Baso # (Auto) 0.03 K/uL (0.00-0.20) 04/13/24 17:17 Immature Gran # (Auto) 0.03 K/uL (0.01-0.20) 04/13/24 17:17 Absolute Nucleated RBC Cancelled 04/13/24 16:21 Nucleated RBC % (auto) Cancelled 04/13/24 16:21 Neutrophils % (Manual) Cancelled 04/13/24 16:21 Band Neutrophils % Cancelled 04/13/24 16:21 Lymphocytes % (Manual) Cancelled 04/13/24 16:21 Prolymphocyte % Cancelled 04/13/24 16:21 Reactive Lymphs % (Man) Cancelled 04/13/24 16:21 Monocytes % (Manual) Cancelled 04/13/24 16:21 Eosinophils % (Manual) Cancelled 04/13/24 16:21 Basophils % (Manual) Cancelled 04/13/24 16:21 Metamyelocytes % (Man) Cancelled 04/13/24 16:21 Myelocytes % (Man) Cancelled 04/13/24 16:21 Promyelocytes % (Man) Cancelled 04/13/24 16:21 Blast Cells % (Manual) Cancelled 04/13/24 16:21 Plasma Cell % (Manual) Cancelled 04/13/24 16:21 Other Cells % Cancelled 04/13/24 16:21 Nucleated RBC % Cancelled 04/13/24 16:21 Neutrophils # (Manual) Cancelled 04/13/24 16:21 Band Neutrophils # Cancelled 04/13/24 16:21 Total Absolute Neuts Cancelled 04/13/24 16:21 Lymphocytes # (Manual) Cancelled 04/13/24 16:21 Prolymphocyte # Cancelled 04/13/24 16:21 Reactive Lymphs # Cancelled 04/13/24 16:21 Total Abs Lymphocytes Cancelled 04/13/24 16:21 Monocytes # (Manual) Cancelled 04/13/24 16:21 Eosinophils # (Manual) Cancelled 04/13/24 16:21 Basophils # (Manual) Cancelled 04/13/24 16:21 Metamyelocytes # (Man) Cancelled 04/13/24 16:21 Myelocytes # (Manual) Cancelled 04/13/24 16:21 Promyelocytes # (Man) Cancelled 04/13/24 16:21 Blast Cells # (Man) Cancelled 04/13/24 16:21 Plasma Cell # (Manual) Cancelled 04/13/24 16:21 Other Cells # Cancelled 04/13/24 16:21 Nucleated RBCs # (Man) Cancelled 04/13/24 16:21 Hypersegmented Neuts Cancelled 04/13/24 16:21 Hyposegmented Neuts Cancelled 04/13/24 16:21 Hypogranular Neuts Cancelled 04/13/24 16:21 Large Granular Lymphs Cancelled 04/13/24 16:21 # Lrg Granular Lymphs Cancelled 04/13/24 16:21 Hairy Cells Cancelled 04/13/24 16:21 Smudge Cells Cancelled 04/13/24 16:21 Toxic Granulation Cancelled 04/13/24 16:21 Toxic Vacuolation Cancelled 04/13/24 16:21 Dohle Bodies Cancelled 04/13/24 16:21 Conor Rods Cancelled 04/13/24 16:21 Platelet Estimate Cancelled 04/13/24 16:21 Hypogranular Platelets Cancelled 04/13/24 16:21 Giant Platelets Cancelled 04/13/24 16:21 Platelet Satelliting Cancelled 04/13/24 16:21 RBC Morphology Cancelled 04/13/24 16:21 Polychromasia Cancelled 04/13/24 16:21 Hypochromasia Cancelled 04/13/24 16:21 Poikilocytosis Cancelled 04/13/24 16:21 Basophilic Stippling Cancelled 04/13/24 16:21 Anisocytosis Cancelled 04/13/24 16:21 Microcytosis Cancelled 04/13/24 16:21 Macrocytosis Cancelled 04/13/24 16:21 Spherocytes Cancelled 04/13/24 16:21 Pappenheimer Bodies Cancelled 04/13/24 16:21 Sickle Cells Cancelled 04/13/24 16:21 Target Cells Cancelled 04/13/24 16:21 Tear Drop Cells Cancelled 04/13/24 16:21 Ovalocytes Cancelled 04/13/24 16:21 Stomatocytes Cancelled 04/13/24 16:21 [place] Bodies Cancelled 04/13/24 16:21 Echinocytes Cancelled 04/13/24 16:21 Acanthocytes (Spur) Cancelled 04/13/24 16:21 Rouleaux Cancelled 04/13/24 16:21 RBC Agglutinates Cancelled 04/13/24 16:21 Schistocytes Cancelled 04/13/24 16:21 Sezary Cell Cancelled 04/13/24 16:21 Sodium 140 mmol/L (136-145) 04/14/24 08:30 Potassium 3.6 mmol/L (3.5-5.1) 04/14/24 08:30 Chloride 106 mmol/L (98-107) 04/14/24 08:30 Carbon Dioxide 25 mmol/L (21-32) 04/14/24 08:30 Anion Gap 9 (3-11) 04/14/24 08:30 BUN 7 mg/dl (6-23) 04/14/24 08:30 Creatinine 0.64 mg/dl (0.6-1.2) 04/14/24 08:30 Est Cr Clr Drug Dosing 63.5 ml/min 04/14/24 08:30 Est GFR ( Amer) 94.3 ml/min 04/14/24 08:30 Est GFR (Non-Af Amer) 81.4 ml/min 04/14/24 08:30 BUN/Creatinine Ratio 10.9 (10-20) 04/14/24 08:30 Glucose 102 mg/dl (70-99(Fasting)) H 04/14/24 08:30 Calcium 9.3 mg/dl (8.6-10.3) 04/14/24 08:30 Magnesium 1.7 mg/dl (1.7-2.4) 04/14/24 08:30 Total Bilirubin 0.6 mg/dl (0.2-1.0) 04/13/24 16:21 AST 21 U/L (13-39) 04/13/24 16:21 ALT 12 U/L (7-52) 04/13/24 16:21 Alkaline Phosphatase 69 U/L (34-104) 04/13/24 16:21 Total Creatine Kinase 64 U/L (26-192) 04/13/24 16:21 Troponin I High Sens 909.4 pg/ml (0-14) H* 04/14/24 08:30 Total Protein 6.9 gm/dl (6.0-8.3) 04/13/24 16:21 Albumin 4.4 gm/dl (3.4-5.0) 04/13/24 16:21 Globulin 2.5 gm/dl (2.5-4.0) 04/13/24 16:21 Albumin/Globulin Ratio 1.8 (0.9-2) 04/13/24 16:21 Triglycerides 141 mg/dl (0-150) 04/14/24 08:30 Cholesterol 141 mg/dl (0-200) 04/14/24 08:30 LDL Cholesterol, Calc 63 mg/dl 09/24/24 08:30 VLDL Cholesterol, Calc 28 mg/dl (0-30) 04/14/24 08:30 HDL Cholesterol 50 mg/dl 04/14/24 08:30 Cholesterol/HDL Ratio 2.8 (0-5) 04/14/24 08:30 Blood Parasites ID Cancelled 04/13/24 16:[address] 04/13/24 16:16 CT SCAN OF THE CERVICAL SPINE CLINICAL HISTORY: Fall. COMPARISON STUDY: No priors. TECHNIQUE: CT scan of the cervical spine is performed from the skull base to the upper thoracic spine. Images are reviewed in the axial, sagittal, and coronal planes. IV contrast was not administered for this examination. A dose lowering technique was utilized adhering to the principles of ALARA. FINDINGS: Skeletal structures: The skeletal structures are osteopenic. There is no evidence of fracture or subluxation involving the cervical spine. Vertebral body height and alignment are maintained. There is straightening of the cervical lordosis with mild reversal centered at C5. Anterior osteophytes are seen throughout. The odontoid process and lateral masses are intact. The atlantoaxial articulation is preserved noting productive degenerative change. The spinous processes appear intact. There is mild to moderate multilevel cervical spondylosis. Uncovertebral and facet arthropathy contribute to neural foraminal narrowing at several levels. There is chronic deformity of the left clavicle. Intervertebral discs: There is severe disc space narrowing with endplate sclerosis at C5-C6. Moderate disc space narrowing is seen at C4-C5 and C6-C7. Central canal: Posterior disc osteophyte complexes at C4-C5, C5-C6, and C6-C7 may contribute to moderate compromise of the central canal. Soft tissues: The prevertebral and paraspinous soft tissues are within normal limits. There is atherosclerotic calcification of the carotid bulbs. Calvarium: The visualized calvarium at the skull base appears intact. Brain parenchyma: Partially visualized brain parenchyma at the skull base is within normal limits. Sinuses and mastoids: There is mild mucosal thickening within the maxillary antra. Trace because of thickening is seen in the ethmoid sinuses. There are small mastoid effusions. Lung apices: Clear as visualized. IMPRESSION: 1. There is no evidence of fracture or subluxation involving the cervical spine. 2. Osteopenia and spondylotic change as above. ACT 112: Negative or not required by law. Electronically signed by: Beto Coronado M.D. 04/13/2024 5:[address] 04/13/24 16:16 CT head/brain wo con CLINICAL HISTORY: 83 years-old Female with fall from standing; L eyebrow hematoma. Acute head trauma status post fall TECHNIQUE: Multiple axial CT images of the head were obtained without contrast. A dose lowering technique was utilized adhering to the principles of ALARA. CT DOSE: 1009.1 mGy.cm COMPARISON: CT cervical spine of same day FINDINGS: No acute intracranial hemorrhage, midline shift, intracranial mass, hydrocephalus, territorial ischemia or abnormal extra-axial collection. Involutional changes with chronic microvascular ischemic disease. The calvarium is intact. Moderate-sized left periorbital contusion. Trace m astoid effusions. Paranasal sinuses are clear. IMPRESSION: 1. No acute intracranial abnormality or calvarial fracture. 2. Left periorbital contusion. ACT 112: Negative or not required by law. The above report was generated using voice recognition software. It may contain grammatical, syntax or spelling errors. Electronically signed by: Robert Brown M.D. 04/13/2024 5:14 PM Wrist X-Ray 04/13/24 16:25 XR wrist LT min 3V routine HISTORY: 83 years-old Female L wrist pain s/p fall acute pain of the left wrist status post COMPARISON: Radiographs 03/10/2014 TECHNIQUE: 4 views of the left wrist FINDINGS: Widening of the scapholunate interval. Severe radiocarpal, and first carpometacarpal osteoarthritis. Demineralized appearance of the bones. No acute fracture, dislocation or osseous erosion. Chondrocalcinosis of the TFCC. Lucency of the radial styloid noted on image 4. IMPRESSION: 1. No acute displaced fracture or dislocation. 2. [place] to the radial styloid should be correlated clinically to exclude an age-indeterminate nondisplaced fracture. 3. Osteoarthritis with SLAC wrist. ACT 112: Negative or not required by law. The above report was generated using voice recognition software. It may contain grammatical, syntax or spelling errors. Electronically signed by: Robert Brown M.D. 04/13/2024 4:52 PM Chest X-Ray 04/13/24 18:51 XR chest 1V portable HISTORY: 83 years-old Female fall acute chest trauma status post fall COMPARISON: 01/19/2019 TECHNIQUE: AP view of the chest FINDINGS: Cardiomediastinal and hilar silhouettes are within normal limits. 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 No pneumothorax, pleural effusion or airspace consolidation. IMPRESSION: No acute process of the chest. ACT 112: Negative or not required by law. The above report was generated using voice recognition software. It may contain grammatical, syntax or spelling errors. Electronically signed by: Robert Brown M.D. 04/14/2024 6:49 AM Ankle X-Ray 04/13/24 19:28 LEFT ANKLE 3 VIEWS CLINICAL HISTORY: Fall with left ankle injury. FINDINGS: 3 views of the left ankle are obtained. No prior studies are available for comparison at the time of dictation. The skeletal structures are osteopenic. No fracture is seen. The ankle mortise is intact. No joint effusion is identified. There are dorsal and plantar heel spurs. Soft tissue edema is seen around the ankle. There is atherosclerotic calcification of the residual arteries. IMPRESSION: Soft tissue swelling with no radiographic evidence of acute fracture. Electronically signed by: Beto Coronado M.D. 04/14/2024 10:25 AM Brain MRI 04/13/24 21:40 Exam(s): MRI HEAD W/WO Contrast IV Amt: 9cc gadavist EXAM: MR Head Without and With Intravenous Contrast CLINICAL HISTORY: Reason for exam: syncope, recurrent falls. TECHNIQUE: Magnetic resonance images of the head/brain without and with intravenous contrast in multiple planes. CONTRAST: Patient received 9cc gadavist of IV contrast COMPARISON: Prior head CT from April 13, 2024. FINDINGS: Brain: Mild to moderate nonspecific white matter changes. The flow voids at the base of the right intact. No mass. No hemorrhage. No acute infarct. No evidence of abnormal enhancement. The dural venous sinuses are patent. Ventricles: Unremarkable. No ventriculomegaly. Bones/joints: Remote left lamina papyracea fracture deformity. No acute fracture. Sinuses: Chronic left maxillary and ethmoid sinusitis. No acute sinusitis. Mastoid air cells: There is a small amount of fluid on the left and moderate amount of fluid in the right mastoid air cells. No mastoid effusion. Orbits: Unremarkable as visualized. IMPRESSION: No evidence of acute intracranial pathology. Electronically signed by: Anat Gill MD 04/14/24 00:34 AM
--- NOTE | 2024-04-14 12:37 | Cardiology Consultation ---
Date of Consultation April 14, 2024 Assessment & Plan (1) Fall (on) (from) other stairs and steps, initial encounter: (2) Elevated troponin: (3) Abnormal echocardiogram: (4) Uncontrolled hypertension: Plan 83 year old female admitted following a mechanical fall without associated loss of consciousness, resultant head trauma with left periorbital contusion and distal left radius fracture. Cardiology consultation requested secondary to elevated high-sensitivity troponin, peaking at 912.2 pg/mL. EKG without acute change. Resting echocardiography with a small size basal inferior and posterior wall motion abnormality. Patient asymptomatic in regards to overt angina. Suspect multifactorial troponin elevation - trauma, stress, and uncontrolled hypertension in the setting of presumed underlying coronary artery disease. Recommend conservative cardiac medical management. Heparin not recommended given asymptomatic status and recent head trauma. Continue aspirin, beta- nj, statin, ARB, and amlodipine. Trial addition of long-acting nitrates. Avoid thiazide diuretic noting intermittent hyponatremia, concern for adequate oral fluid intake, and sulfa allergy. Supervising Physician Co-Signing Physician Notes I have personally performed a history and physical examination on the patient. I have reviewed the advance practitioner's documentation, and I agree with, and take responsibility for the plan of care. 83-year-old female admitted with mechanical fall, head trauma with loss of consciousness, left periorbital contusion and distal left radius fracture. Incidentally elevated high-sensitivity troponin noted. No chest discomfort or ECG changes noted. There is a small basal inferior posterior wall motion abnormality on echocardiogram. Recommend conservative management at this time without IV anticoagulation in the setting of recent head trauma. Continue aspirin, beta-nj, statin, ARB, and amlodipine. Cardiology will continue to follow during hospitalization. Girma Yeung DO, [facility] History of Present Illness Reason for Consultation: Elevated troponin Requesting Physician: Janie Attending Physician: Deb History of Present Illness Ms. Lena Sweeney is a 83 year old female who presented to the [facility] ER on April 13, 2024 after suffering a mechanical fall. Patient describes walking out of the building, tripping and falling down 2 stairs, falling into a wall and onto the floor, hitting the head, left upper extremity, and left knee. No loss of consciousness. Workup in the ER revealed left periorbital contusion and a left distal radius fracture. EKG without acute change. High-sensitivity troponin elevated as follows: 70.0 -> 289.4-> 912.2-> 909.4 pg/mL. Resting echocardiography with small size basal inferior and posterior wall motion abnormality. Chest x-ray without acute process. Patient denies chest pain or discomfort. She notes being worked up with this incident, having some mild palpitations with initial event. No new or worsening shortness of breath. No cough, chest congestion, orthopnea, or lower extremity peripheral edema. Past Medical and Surgical History: Palpitations secondary to PSVT, PVCs Hypertension Dyslipidemia with statin intolerance Moderate internal carotid artery disease Mixed valvular heart disease. Stage III chronic kidney disease Sicca syndrome, Sjogren's Glaucoma GERD Generalized anxiety disorder x 4 D&C x 2 Trabeculectomy x 2 on the right, x 1 on the left Arthroscopic knee surgery Cataract extraction Left rotator cuff repair Appendectomy Family History: Mother had DM and HTN. She passed at 74 with an unknown cause of . Her father had an NE at a young age, living to the age of 87 and passing after a limb surgery. He had Parkinson's disease, bladder cancer, hypertension, PAD, and the CAD. One brother was a smoker and with lung cancer at the age of 50. She had one sister who with an NE at 62; she was type I diabetic. Another sister is allive without cardiac issues. Social History: Prior smoker having quit 35-40 years ago. Alcohol: 1-2 glasses of red wine per night. She denies illegal drug use. . Four children. Five grandchildren. 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 Lives in [place], [place]. Allergies Allergy/AdvReac Type Severity Reaction Status Date / Time Sulfa (Sulfonamide Allergy Mild rash Verified 04/13/24 18:39 Antibiotics) JAMAAL Inhibitors AdvReac Unknown COUGH Unverified 04/13/24 18:39 morphine AdvReac Unknown N/V per Unverified 04/13/24 18:39 cardio note- tolerates IV morphine not PO oxycodone AdvReac Unknown upset Unverified 04/13/24 18:39 stomach/vomiting sulindac AdvReac Unknown NAUSEA Unverified 04/13/24 18:39 VOMITING ezetimibe [From Zetia] AdvReac Verified 04/13/24 18:39 Home Medications Medication Instructions Recorded Confirmed Type aspirin 81 mg tablet,delayed 81 mg PO DAILY 04/16/18 04/13/24 History release atenolol 50 mg tablet 50 mg PO BID 04/16/18 04/13/24 History cholecalciferol (vitamin D3) 25 1,000 units PO DAILY 04/16/18 04/13/24 History mcg (1,000 unit) tablet (Vitamin D3) fluticasone propionate 50 2 spray intranasal DAILY PRN 04/16/18 04/13/24 History mcg/actuation nasal Allergy Symptoms spray,suspension (Flonase Allergy Relief) losartan 100 mg tablet 100 mg PO QAM 04/16/18 04/13/24 History magnesium oxide 400 mg (241.3 mg 400 mg PO DAILY 04/16/18 04/13/24 History magnesium) tablet paroxetine HCl 10 mg tablet 10 mg PO QAM 04/16/18 04/13/24 History pravastatin 10 mg tablet 10 mg PO HS 04/16/18 04/13/24 History pantoprazole 40 mg tablet,delayed 40 mg PO DAILY 01/19/19 04/13/24 History release (Protonix) amlodipine 5 mg tablet 5 mg PO DAILY 09/21/19 04/13/24 History omega-3 fatty acids [Fish Oil] 1 tab PO DAILY 09/21/19 04/13/24 History dorzolamide 2 % eye drops 1 drp OPL BID 04/13/24 04/13/24 History latanoprost 0.005 % eye drops 1 drp OPL PM 04/13/24 04/13/24 History Patient History Medical History Irritable bowel syndrome Surgical History History of tubal ligation H/O eye surgery S/P rotator cuff repair H/O arthroscopic knee surgery Hx of appendectomy Previous section Family History Father Bladder cancer Social History Smoking Status: Former smoker Tobacco Type: Cigarettes Smoking End Date: approx 1964; Hx Alcohol Use: Yes Alcohol type: wine Hx Substance Use: No Preferred Language: Latvian Communication Ability: Effective Light Bulb Replacer Required: No Beliefs That Will Affect Care: Christianity marital status: / Current Living Situation: Alone Feels Safe at Home: Yes Safety Concerns: Feels Safe At This Time Assistive Devices: None Review of Systems Review of Systems: Complete Review of Systems is as stated above, negative, or noncontributory. Physical Exam Physical Exam: General: Alert and oriented x3. No acute distress. Pleasant. Comfortable. Cooperative. Skin: No rash Eyes: Left periorbital ecchymosis. PER. Conjunctiva pink, sclera clear. HENT: Normocephalic. Atraumatic. Neck: Carotid bruits. No JVD. Heart: RRR, 60 bpm. Grade III/ systolic ejection murmur. No diastolic murmur. Lungs: Clear to auscultation. No wheeze. No rales. No rhonchi Abdomen: +BS. Soft. Nontender. No masses. No organomegaly. Extremities: Left wrist soft case. Right mid forearm ecchymosis. + Varicosities. No cyanosis. No lower extremity peripheral edema. Pulses: Posterior tibial=2/4. Limited neurological examination: No focal deficit. Results & Data Vital Signs (Past 12 Hours) Vital Signs Temp Pulse Resp BP BP Pulse Ox O2 Del Method 04/14/24 11:52 36.4 C L 52 L 18 153/79 H 95 Room Air 04/14/24 08:12 36.6 C 55 L 18 163/84 H 94 Room Air 04/14/24 04:08 36.8 C 54 L 16 171/81 H 95 Room Air Laboratory Results Cardiac Enzymes 04/13/24 04/13/24 04/13/24 Range/Units 16:21 17:17 22:49 AST 21 (13-39) U/L Troponin I High Sens 70.0 H* 289.4 H* D 910.2 H* D (0-14) pg/ml 04/14/24 Range/Units 08:30 AST (13-39) U/L Troponin I High Sens 909.4 H* (0-14) pg/ml Lipids 04/14/24 Range/Units 08:30 Triglycerides 141 (0-150) mg/dl Cholesterol 141 (0-200) mg/dl HDL Cholesterol 50 mg/dl Cholesterol/HDL Ratio 2.8 (0-5) CBC 04/13/24 04/13/24 04/14/24 Range/Units 16:21 17:17 08:30 WBC Cancelled 6.66 5.65 RBC Cancelled 3.75 L 3.60 L Hgb Cancelled 12.4 12.3 Hct Cancelled 36.6 L 34.5 L Plt Count Cancelled 197 192 Neut # (Auto) Cancelled 4.15 Lymph # (Auto) Cancelled 1.71 [place] # (Auto) Cancelled 0.63 H Eos # (Auto) Cancelled 0.11 Baso # (Auto) Cancelled 0.03 Comprehensive Metabolic Panel 04/13/24 04/14/24 Range/Units 16:21 08:30 Sodium 137 140 (136-145) mmol/L Potassium 3.4 L 3.6 (3.5-5.1) mmol/L Chloride 103 106 (98-107) mmol/L Carbon Dioxide 23 25 (21-32) mmol/L BUN 11 7 (6-23) mg/dl Creatinine 0.80 0.64 (0.6-1.2) mg/dl Glucose 112 H 102 H (70-99(Fasting)) mg/dl Calcium 9.7 9.3 (8.6-10.3) mg/dl AST 21 (13-39) U/L ALT 12 (7-52) U/L Alkaline Phosphatase 69 (34-104) U/L Total Protein 6.9 (6.0-8.3) gm/dl Albumin 4.4 (3.4-5.0) gm/dl Intake and Output 04/13/24 04/14/24 04/14/24 22:59 06:59 14:59 Intake Total 100 / 100 1000 / 1000 Balance 100 / 100 1000 / 1000 Intake: IV 100 / 100 1000 / 1000 Magnesium Sulfate / D5w 1 gm In 100 / 100 100 ml @ 100 mls/hr IV NOW STA Rx#:[id number] Sodium Chloride 0.9% 1,000 ml @ 1000 / 1000 80 mls/hr IV .[id number] ANDRES Rx#: [id number] Other: # Unmeasured Voids 1 Weight 81.919 kg 81.335 kg Weight Measurement Method [facility] Built in [facility] Diagnostic Findings Telemetry: Sinus down into the 40's overnight, currently in the 60's. April 14, 2024 TTE Interpretation Summary ([facility], Dr. Yeung): LVEF 55 to 60%. Small sized basal inferior and posterior wall motion abnormality with hypokinesis of the segments. Mild concentric LVH. Moderate to severe mitral regurgitation. Mild aortic valve sclerosis without significant stenosis. Trace tricuspid regurgitation. Doppler findings do not suggest pulmonary hypertension
--- NOTE | 2024-04-14 21:11 | Electrocardiogram Report ---
Test Reason : Blood Pressure : */* mmHG Vent. Rate : 56 BPM Atrial Rate : 56 BPM P-R Int : 218 ms QRS Dur : 86 ms QT Int : 472 ms P-R-T Axes : 57 19 53 degrees QTcB Int : 455 ms Sinus bradycardia with 1st degree A-V block Nonspecific ST abnormality When compared with ECG of 13-Apr-2024 16:08, Criteria for Septal infarct are no longer Present Confirmed by Drew Aguilar ([id number]) on 04/14/2024 9:11:12 PM Referred By: REFERRED SELF Confirmed By: Drew Aguilar
--- NOTE | 2024-04-14 21:11 | Electrocardiogram Report ---
Test Reason : Blood Pressure : */* mmHG Vent. Rate : 67 BPM Atrial Rate : 67 BPM P-R Int : 208 ms QRS Dur : 88 ms QT Int : 396 ms P-R-T Axes : 62 39 73 degrees QTcB Int : 418 ms Normal sinus rhythm Septal infarct , age undetermined Nonspecific ST abnormality Abnormal ECG When compared with ECG of 19-Jan-2019 21:12, Premature ventricular complexes are no longer Present Septal infarct is now Present Confirmed by Drew Aguilar ([id number] on 04/14/2024 9:10:45 PM Referred By: REFERRED SELF Confirmed By: Drew Aguilar
[2024-04-14] MEDS ORDERED: DICLOFENAC SOD 1% GEL 100 GM TUBE EXT PRN (22:04)
[2024-04-14] MEDS ORDERED: oxyCODONE HCL IR 5 MG TAB (IMMEDIATE RELEASE) PO PRN (22:05)
[2024-04-14] MEDS: ACETAMINOPHEN W/CODEINE #3 1 TAB PO PRN (22:44)
[2024-04-14] MEDS: MoRPHine SULFATE 2 MG/ML CARP IV PRN (23:31)
[2024-04-15 07:58] LABS: Basophils # (auto) 0.04 K/uL (0.00-0.20); Basophils % (auto) 0.6 %; Eosinophils # (auto) 0.12 K/uL (0.00-0.50); Eosinophils % (auto) 1.7 %; Hematocrit (blood only) 36.2 % (37.0-47.0); Hemoglobin 12.1 g/dl (12.0-16.0); Immature Granulocytes # (auto) 0.03 K/uL (0.01-0.20); Immature Granulocytes % (auto) 0.4 %; Lymphocytes # (auto) 1.66 K/uL (1.20-3.40); Lymphocytes % (auto) 23.1 %; Mean Corpuscular Hemoglobin 33.4 pg (25.0-34.0); Mean Corpuscular Hgb Conc 33.4 g/dL (32.0-36.0); Monocytes # (auto) 0.86 K/uL (0.11-0.59); Monocytes % (auto) 11.9 %; Neutrophils # (auto) 4.49 K/uL (1.40-6.50); Neutrophils % (auto) 62.3 %; Platelet Count 175 K/uL (130-400); RDW Standard Deviation 48.1 fL (36.4-46.3); Red Blood Count 3.62 M/uL (4.20-5.40)
[2024-04-15 08:19] LABS: BUN Creatinine Ratio 15.1 (10-20); Calcium 9.3 mg/dl (8.6-10.3); Creatinine Clr Calc Pharmacy 55.9 ml/min; Est GFR (Non-African American) 75.1 ml/min; Magnesium 1.7 mg/dl (1.7-2.4); Potassium 4.1 mmol/L (3.5-5.1)
--- NOTE | 2024-04-15 12:05 | Cardiology Progress Note ---
Date of Service April 15, 2024 Assessment & Plan (1) Fall (on) (from) other stairs and steps, initial encounter: (2) Elevated troponin: (3) Abnormal echocardiogram: (4) Uncontrolled hypertension: Plan 83 year old female admitted following a mechanical fall without associated loss of consciousness, resultant head trauma with left periorbital contusion and distal left radius fracture. Cardiology consultation requested secondary to elevated high-sensitivity troponin, peaking at 912.2 pg/mL. - EKG without acute change. - Resting echocardiography with a small size basal inferior and posterior wall motion abnormality. - Patient asymptomatic in regards to overt angina. - Suspect multifactorial troponin elevation - trauma, stress, and uncontrolled hypertension in the setting of presumed underlying coronary artery disease. Recommendations: Conservative cardiac medical management. Trial Carvedilol instead of Atenolol, RE: hypertension, bradycardia. Continue aspirin, statin, ARB, and amlodipine. Long-acting nitrates, hydralazine, or cautious alpha nj therapy may be future antihypertensive options if needed Avoiding thiazide diuretic noting intermittent hyponatremia, concern for adequate oral fluid intake, sulfa allergy. Admission and Anticipated Discharge Date Admission Date: April 13, 2024 Supervising Physician Co-Signing Physician Notes I have personally performed a history and physical examination on the patient. I have reviewed the advance practitioner's documentation, and I agree with, and take responsibility for the plan of care. 83-year-old female admitted with mechanical fall, head trauma with loss of consciousness, left periorbital contusion and distal left radius fracture. Incidentally elevated high-sensitivity troponin noted. No chest discomfort or ECG changes noted. There is a small basal inferior posterior wall motion abnormality on echocardiogram. Recommend conservative management at this time without IV anticoagulation in the setting of recent head trauma. Transition atenolol to carvedilol. Continue aspirin, statin, ARB, and amlodipine. Possible transfer to rehab facility in the next 24-48 hours. Girma Yeung DO, [facility] Subjective Patient seen and examined. Chart, medications, telemetry reviewed. Son at bedside. Complaints: Left wrist discomfort. Mild headache last night. No headache today. No unilateral complaints to suggest TIA/CVA. No chest pain. No palpitations. No shortness of breath, orthopnea, or PND Telemetry: Sinus/sinus bradycardia, heart rates in the 50s Review of Systems Review of Systems: Complete Review of Systems is as stated above, negative, or noncontributory. Physical Exam Physical Exam: General: Alert and oriented x3. No acute distress. Pleasant. Comfortable. Cooperative. Skin: No rash Eyes: Left periorbital ecchymosis. PER. Conjunctiva pink, sclera clear. HENT: Normocephalic. Atraumatic. Neck: Carotid bruits. No JVD. Heart: RRR, 56 bpm. Grade II/ systolic ejection murmur. No diastolic murmur. Lungs: Clear to auscultation. No wheeze. No rales. No rhonchi Abdomen: +BS. Soft. Nontender. No masses. No organomegaly. Extremities: Left wrist brace. + Varicosities. No cyanosis. No lower extremity peripheral edema. Pulses: Posterior tibial=2/4. Limited neurological examination: No focal deficit. Results & Data Vital Signs (Past 12 Hours) Vital Signs Temp Pulse Pulse Resp BP Pulse Ox O2 Del Method 04/15/24 11:41 37.3 C 58 L 18 135/77 96 Room Air 04/15/24 07:52 36.8 C 58 L 18 171/80 H 96 Room Air 04/15/24 07:39 52 L 04/15/24 02:29 36.4 C L 58 L 18 148/82 H 94 Room Air Laboratory Results CBC 04/15/24 Range/Units 07:24 WBC 7.20 (4.8-10.8) K/ul RBC 3.62 L (4.20-5.40) M/uL Hgb 12.1 (12.0-16.0) g/dl Hct 36.2 L (37.0-47.0) % Plt Count 175 (130-400) K/uL Neut # (Auto) 4.49 (1.40-6.50) K/uL Lymph # (Auto) 1.66 (1.20-3.40) K/uL [place] # (Auto) 0.86 H (0.11-0.59) K/uL Eos # (Auto) 0.12 (0.00-0.50) K/uL Baso # (Auto) 0.04 (0.00-0.20) K/uL Comprehensive Metabolic Panel 04/15/24 Range/Units 07:24 Sodium 137 (136-145) mmol/L Potassium 4.1 (3.5-5.1) mmol/L Chloride 107 (98-107) mmol/L Carbon Dioxide 22 (21-32) mmol/L BUN 11 (6-23) mg/dl Creatinine 0.73 (0.6-1.2) mg/dl Glucose 101 H (70-99(Fasting)) mg/dl Calcium 9.3 (8.6-10.3) mg/dl Intake and Output 04/14/24 04/15/24 04/15/24 22:59 06:59 14:59 Intake Total 100 1100 Balance 1099 Intake: Oral 100 / 100 Other: Other Intake Source Sips # Unmeasured Voids 1 Weight 82 kg Weight Measurement Method Built in [facility]
--- NOTE | 2024-04-15 13:24 | Hospitalist Progress Note ---
Date of Service April 15, 2024 Assessment & Plan (1) Fall from standing: Plan: Mechanical fall following missing while going to the parking lot Did not have any warning symptoms prior to the fall Injury to the head, left periorbital area, left hand and also left leg CT head: No acute intracranial abnormality or calvarial fracture. Left periorbital contusion. CT c-spine: There is no evidence of fracture or subluxation involving the cervical spine. Denies any more headache but has periorbital bruising MRI of the head has been negative Denies any headache, blurring of vision, any nausea no vomiting (2) Facial hematoma: (3) Acute pain of left wrist: Plan: Patient is 83 year old female with PMH HTN, dyslipidemia, PSVT, PVCs, MATT stenosis CKD III, anxiety presented to ER with c/o fall missing 2 steps. Denies LOC. C/O pain to left forehead, left wrist, left knee and left ankle. Left wrist xray: No acute displaced fracture or dislocation. Luc[place] to the radial styloid should be correlated clinically to exclude an age-indeterminate nondisplaced fracture. Left ankle xray: No fracture In ER was placed in left wrist splint Will get Ortho evaluation-Appreciate input and recommendation Fall precautions PT/OT eval-appreciate input and recommendation The left wrist will have a splint placed by the orthopedic surgeon Likely discharge tomorrow (4) Elevated troponin: Plan: NSTEMI No chest pain and/or palpitation Troponin: 70 -->289 Troponin went up to 910 And the patient remained asymptomatic EKG sinus rhythm, Q waves septal leads, T wave flattening septal leads per my interpretation In ER given 324mg aspirin ER physician spoke to decorator consultant chain carrier, Dr Aguillon who recommended trending troponin and no heparin at this time R/O ACS. DDx NSTEMI Repeat EKG in am-Remained unremarkable Echo -LVEF was 55 to 60%, there is small sized basal inferior and posterior wall motion abnormality with hypokinesis of the segments, mild concentric LVH, moderate to severe MR, aortic valve sclerosis without significant valvular stenosis, trace tricuspid regurgitation and Doppler finding do not suggest pulmo nary hypertension Lipid panel in am-Unremarkable, Will continue statin. In past history statin intolerance Continue aspirin, atenolol Cardiology consult-Appreciate input and recommendation (5) Hypomagnesemia: Plan: Magnesium: 1.6 In ER given 1GM magnesium sulfate Continue home magnesium oxide Magnesium lab in am (6) Acute hypokalemia: Plan: K: 3.4 Replace and monitor (7) HTN (hypertension): Plan: Continue amlodipine, atenolol, losartan (8) Dyslipidemia: Plan: Continue pravastatin (9) CKD (chronic kidney disease), stage III: Plan: Cr: 0.8. Was 0.8 with GFR: 68 in 01/16/24 Monitor renal functions (10) Anxiety: Plan: Continue paroxetine DVT Prophylaxis SQ Heparin Admission and Anticipated Discharge Date Admission Date: April 13, 2024 Subjective 04/14/2024 The patient was seen and examined in the telemetry unit She was admitted with a mechanical fall following missed a step Has had a head injury and left periorbital injury and also left wrist injury Denies any chest pain and/or palpitation prior to the incident or since admission 04/15/2024 The patient was seen and examined in telemetry unit She denies any cardiac symptoms but complains of left wrist pain She has had physical therapy and was advised for rehab Likely to be discharged tomorrow Review of Systems Review of Systems: All systems reviewed and are unremarkable except as noted below Physical Exam Physical Exam: Lying in bed without any acute distress Constitutional: well developed, well nourished, + ill appearing and + obese Eyes: + periorbital abnormality (Periorbital b ruising on left) ENMT: external ear and nose normal, oropharynx normal Neck: trachea midline, no thyromegaly Respiratory: no respiratory distress Auscultation: lungs clear to auscultation bilaterally Cardiovascular: Rate/Rhythm: regular rate, regular rhythm and + bradycardic Heart Sounds: normal S1 and normal S2; no murmur Extremities: no edema Gastrointestinal (Abdomen): Inspection/Auscultation: normal bowel sounds; abdomen not distended Percussion/Palpation: abdomen soft; abdomen nontender Musculoskeletal: Extremities: + wrist abnormality (Swollen left wrist with painful movements in all directions) Neurologic: normal touch/pain/proprioception and moves all extremities; no focal motor deficits Lymphatic: no cervical or axillary lymphadenopathy Results & Data Results & Data Vital Signs (Past 12 Hours) Vital Signs Temp Pulse Pulse Resp BP Pulse Ox O2 Del Method 04/15/24 11:41 37.3 C 58 L 18 135/77 96 Room Air 04/15/24 07:52 36.8 C 58 L 18 171/80 H 96 Room Air 04/15/24 07:39 52 L 04/15/24 02:29 36.4 C L 58 L 18 148/82 H 94 Room Air Laboratory Results Short CBC 04/15/24 Range/Units 07:24 WBC 7.20 (4.8-10.8) K/ul Hgb 12.1 (12.0-16.0) g/dl Hct 36.2 L (37.0-47.0) % Plt Count 175 (130-400) K/uL BMP 04/15/24 07:24 Sodium 137 Potassium 4.1 Chloride 107 Carbon Dioxide 22 BUN 11 Creatinine 0.73 Glucose 101 H Calcium 9.3 Medications Administered Current Inpatient Medications Acetaminophen (Acetaminophen 325 Mg Tab) 650 mg PO Q4H PRN PRN Reason: Pain or Fever Stop: 05/13/24 20:36 Last Admin: 04/14/24 19:48 Dose: 650 mg Acetaminophen/Codeine Phosphate (Acetaminophen W/Codeine #3 1 Tab) 1 tab PO Q4H PRN PRN Reason: Pain Stop: 05/14/24 22:04 Last Admin: 04/15/24 10:34 Dose: 1 tab Amlodipine Besylate (Amlodipine Besylate 5 Mg Tab) 5 mg PO DAILY ANDRES Stop: 05/14/24 08:59 Last Admin: 04/15/24 08:02 Dose: 5 mg Aspirin (Aspirin 81 Mg Ectab) 81 mg PO DAILY ANDRES Stop: 05/14/24 08:59 Last Admin: 04/15/24 08:03 Dose: 81 mg Carvedilol (Carvedilol 6.25 Mg Tab) 6.25 mg PO BIDM ANDRES Stop: 05/15/24 16:59 Dorzolamide HCl (Dorzolamide Hcl 2% Oph Soln 10 Ml Btl) 1 drops OPL BID ANDRES Stop: 05/13/24 20:59 Last Admin: 04/15/24 08:05 Dose: 1 drops Fluticasone Propionate (Fluticasone Propionate Na Spr 16 Gm Btl) 2 sprays KARLA DAILY PRN PRN Reason: Allergy Symptoms Stop: 05/13/24 20:36 Heparin Sodium (Porcine) (Heparin Sod 5,000 Unit/0.5 Ml Vial) 5,000 units SQ Q8 ANDRES Stop: 05/13/24 21:59 Last Admin: 04/15/24 04:40 Dose: 5,000 units Latanoprost (Latanoprost 0.005% Op Soln 2.5 Ml Btl) 1 drops OPL PM ANDRES Stop: 05/13/24 20:59 Last Admin: 04/14/24 19:46 Dose: 1 drops Losartan Potassium (Losartan Potassium 50 Mg Tab) 100 mg PO QAM ANDRES Stop: 05/14/24 08:59 Last Admin: 04/15/24 08:04 Dose: 100 mg Magnesium Oxide (Magnesium Oxide 400 Mg Tab) 400 mg PO DAILY ANDRES Stop: 05/14/24 08:59 Last Admin: 04/15/24 08:04 Dose: 400 mg Morphine Sulfate (Morphine Sulfate 2 Mg/Ml Carp) 2 mg IV Q3H PRN PRN Reason: Pain Stop: 04/28/24 23:17 Last Admin: 04/14/24 23:31 Dose: 2 mg Nitroglycerin (Nitroglycerin Sl 0.4 Mg/Tab Tab) 0.4 mg SL Q5M PRN PRN Reason: Chest Pain Stop: 05/13/24 20:36 Ondansetron HCl (Ondansetron Inj 2 Mg/Ml 2 Ml Vial) 4 mg IV Q6H PRN PRN Reason: Nausea Stop: 05/13/24 20:36 Pantoprazole Sodium (Pantoprazole 40 Mg Tab) 40 mg PO DAILY ANDRES Stop: 05/14/24 08:59 Last Admin: 04/15/24 08:02 Dose: 40 mg Paroxetine HCl (Paroxetine Hcl 10 Mg Tab) 10 mg PO QAM ANDRES Stop: 05/14/24 08:59 Last Admin: 04/15/24 08:01 Dose: 10 mg Polyethylene Glycol (Polyethylene (Miralax) 17 Gm Pack) 17 gm PO DAILY PRN PRN Reason: Constipation Stop: 05/13/24 20:36 Pravastatin Sodium (Pravastatin Sod 10 Mg Tab) 10 mg PO HS ANDRES Stop: 05/13/24 20:59 Last Admin: 04/14/24 19:46 Dose: 10 mg Vitamin D (Cholecalciferol 25 Mcg (1000 Units) Tab) 25 mcg PO DAILY ANDRES Stop: 05/14/24 08:59 Last Admin: 04/15/24 08:04 Dose: 25 mcg
[2024-04-15] MEDS: carvediloL 6.25 MG TAB PO SCH (17:20)
--- NOTE | 2024-04-15 20:38 | Orthopedic Progress Note ---
Date of Service April 15, 2024 Assessment & Plan (1) Fracture of left distal radius: Plan: IMPRESSION: Left wrist pain secondarily to exacerbation of SLAC wrist versus non-displaced radial styloid fracture. PLAN: Will treat conservatively. Ice with easy wrap PT/OT Switch to cock-up wrist splint, may remove for hygiene. Continue Pain control May feed herself with LUE. D/C planning Continue care per primary service. Will follow-up as an outpatient in 10 to 14 days. Admission and Anticipated Discharge Date Admission Date: April 13, 2024 Subjective My left wrist hurts more in the splint. Physical Exam Physical Exam: LUE: Splint was removed. 2+ radial pulse. Sensation to light touch intact distally. Motor to: median, radial, ulnar, AIN, PIN intact. + TTP distal radius and dorsum of wrist. No TTP anatomic snuff box nor volarly about the scaphoid.Mild swelling about the wrist. Limited wrist motion secondarily to pain. Results & Data Vital Signs (Past 12 Hours) Vital Signs Temp Pulse Pulse Pulse Resp BP BP 04/15/24 19:23 36.9 C 57 L 14 130/77 04/15/24 16:15 52 L 04/15/24 16:13 37.1 C 54 L 18 131/77 04/15/24 11:41 37.3 C 58 L 18 135/77 Pulse Ox O2 Del Method 04/15/24 19:23 97 Room Air 04/15/24 16:15 04/15/24 16:13 93 Room Air 04/15/24 11:41 96 Room Air Laboratory Results 04/15/24 Range/Units 07:24 WBC 7.20 (4.8-10.8) K/ul RBC 3.62 L (4.20-5.40) M/uL Hgb 12.1 (12.0-16.0) g/dl Hct 36.2 L (37.0-47.0) % MCV 100.0 (80.0-100.0) fL MCH 33.4 (25.0-34.0) pg MCHC 33.4 (32.0-36.0) g/dL RDW Std Deviation 48.1 H (36.4-46.3) fL RDW Coeff of [place] 13.0 (11.5-14.5) % Plt Count 175 (130-400) K/uL MPV 10.0 (9.4-12.4) fL Immature Gran % (Auto) 0.4 % Neut % (Auto) 62.3 % Lymph % (Auto) 23.1 % [place] % (Auto) 11.9 % Eos % (Auto) 1.7 % Baso % (Auto) 0.6 % Neut # (Auto) 4.49 (1.40-6.50) K/uL Lymph # (Auto) 1.66 (1.20-3.40) K/uL [place] # (Auto) 0.86 H (0.11-0.59) K/uL Eos # (Auto) 0.12 (0.00-0.50) K/uL Baso # (Auto) 0.04 (0.00-0.20) K/uL Immature Gran # (Auto) 0.03 (0.01-0.20) K/uL Sodium 137 (136-145) mmol/L Potassium 4.1 (3.5-5.1) mmol/L Chloride 107 (98-107) mmol/L Carbon Dioxide 22 (21-32) mmol/L Anion Gap 8 (3-11) BUN 11 (6-23) mg/dl Creatinine 0.73 (0.6-1.2) mg/dl Est Cr Clr Drug Dosing 55.9 ml/min Est GFR ( Amer) 87.0 ml/min Est GFR (Non-Af Amer) 75.1 ml/min BUN/Creatinine Ratio 15.1 (10-20) Glucose 101 H (70-99(Fasting)) mg/dl Calcium 9.3 (8.6-10.3) mg/dl Magnesium 1.7 (1.7-2.4) mg/dl Diagnostic Findings XR wrist LT min 3V routine HISTORY: 83 years-old Female L wrist pain s/p fall acute pain of the left wrist status post COMPARISON: Radiographs 03/10/2014 TECHNIQUE: 4 views of the left wrist FINDINGS: Widening of the scapholunate interval. Severe radiocarpal, and first carpometacarpal osteoarthritis. Demineralized appearance of the bones. No acute fracture, dislocation or osseous erosion. Chondrocalcinosis of the TFCC. Lucency of the radial styloid noted on image 4. IMPRESSION: 1. No acute displaced fracture or dislocation. 2. [place] to the radial styloid should be correlated clinically to exclude an age-indeterminate nondisplaced fracture. 3. Osteoarthritis with SLAC wrist. ACT 112: Negative or not required by law. The above report was generated using voice recognition software. It may contain grammatical, syntax or spelling errors. Electronically signed by: Robert Brown M.D. 04/13/2024 4:52 PM
[2024-04-16 08:36] LABS: Basophils # (auto) 0.04 K/uL (0.00-0.20); Basophils % (auto) 0.7 %; Eosinophils # (auto) 0.18 K/uL (0.00-0.50); Eosinophils % (auto) 3.1 %; Hematocrit (blood only) 36.9 % (37.0-47.0); Hemoglobin 12.3 g/dl (12.0-16.0); Immature Granulocytes # (auto) 0.09 K/uL (0.01-0.20); Immature Granulocytes % (auto) 1.6 %; Lymphocytes # (auto) 2.05 K/uL (1.20-3.40); Lymphocytes % (auto) 35.8 %; Mean Corpuscular Hgb Conc 33.3 g/dL (32.0-36.0); Mean Corpuscular Volume 98.9 fL (80.0-100.0); Mean Platelet Volume 10.1 fL (9.4-12.4); Monocytes # (auto) 0.49 K/uL (0.11-0.59); Monocytes % (auto) 8.6 %; Neutrophils # (auto) 2.88 K/uL (1.40-6.50); Neutrophils % (auto) 50.2 %; Platelet Count 184 K/uL (130-400); RDW Coefficient of Variation 13.1 % (11.5-14.5); RDW Standard Deviation 46.8 fL (36.4-46.3); Red Blood Count 3.73 M/uL (4.20-5.40); White Blood Count 5.73 K/ul (4.8-10.8)
[2024-04-16 09:23] LABS: Calcium 9.5 mg/dl (8.6-10.3); Magnesium 1.8 mg/dl (1.7-2.4)
[2024-04-16 09:28] LABS: BUN Creatinine Ratio 19.8 (10-20); Creatinine Clr Calc Pharmacy 45.1 ml/min; Est GFR (African American) 66.7 ml/min; Est GFR (Non-African American) 57.5 ml/min
--- NOTE | 2024-04-16 10:43 | Orthopedic Progress Note ---
Date of Service April 16, 2024 Assessment & Plan (1) Fracture of left distal radius: Plan: IMPRESSION: Left wrist pain secondarily to exacerbation of SLAC wrist versus non-displaced radial styloid fracture. PLAN: Will treat conservatively. Ice with easy wrap Encourage elevation PT/OT May remove cock up wrist splint for hygiene. Continue Pain control May feed herself with LUE. D/C planning Continue care per primary service. Will follow-up as an outpatient in 10 to 14 days. Will review case with Dr. Mclaughlin. Orthopedics will sign off at this time unless there are any other concerns Admission and Anticipated Discharge Date Admission Date: April 13, 2024 Supervising Physician Co-Signing Physician Notes I, Dr. Mclaughlin, saw and examined the patient. I discussed the management with my PA. I reviewed my PAs note and agree with the documented findings and of medical decision making and plan of care I developed. Subjective Patient seen in room. She states that the left wrist continues to be uncomfortable in the cock up Velcro splint. It feels better when she elevates the wrist, and is also better now that an ABD pad has been placed under the splint for padding. She states the wrist hurts more than the splint itself. She denies any numbness or tingling or decreased range of motion in her fingers. Physical Exam Constitutional: Resting comfortably no distress, pleasant Cardiovascular: Left radial pulse 2+. Musculoskeletal: Left upper extremity: Brace removed and wrist fully evaluated. There is no skin breakdown. Minimal swelling along the dorsal aspect of the wrist, minimal ecchymosis. Able to move all fingers. Range of motion is limited in the wrist secondary to pain. There is full active range of motion in the elbow. Neurologic: No sensory deficits in all fingers on the left side to light touch. Results & Data Vital Signs (Past 12 Hours) Vital Signs Temp Pulse Pulse Resp BP Pulse Ox O2 Del Method 04/16/24 07:12 97.9 F 70 18 145/68 H 96 Room Air 04/16/24 07:00 51 L 04/16/24 03:34 98.6 F 60 14 135/76 92 Room Air 04/15/24 23:24 57 L
--- NOTE | 2024-04-16 11:44 | Cardiology Progress Note ---
Date of Service April 16, 2024 Assessment & Plan (1) Fall (on) (from) other stairs and steps, initial encounter: (2) Elevated troponin: (3) Abnormal echocardiogram: (4) Uncontrolled hypertension: Plan 83 year old female admitted following a mechanical fall without associated loss of consciousness, resultant head trauma with left periorbital contusion and distal left radius fracture. Cardiology consultation requested secondary to elevated high-sensitivity troponin, peaking at 912.2 pg/mL. - EKG without acute change. - Resting echocardiography with a small size basal inferior and posterior wall motion abnormality. - Patient asymptomatic in regards to overt angina. - Suspect multifactorial troponin elevation - trauma, stress, and uncontrolled hypertension in the setting of presumed underlying coronary artery disease. Recommendations: Conservative cardiac medical management. Atenolol transitioned to Carvedilol with improvement in hypertension this admission Continue carvedilol, aspirin, statin, ARB, and amlodipine. Long-acting nitrates, hydralazine, or cautious alpha nj therapy may be future antihypertensive options if needed Avoiding thiazide diuretic noting intermittent hyponatremia, concern for adequate oral fluid intake, sulfa allergy. Please contact with any questions or concerns. Admission and Anticipated Discharge Date Admission Date: April 13, 2024 Supervising Physician Co-Signing Physician Notes I have personally performed a history and physical examination on the patient. I have reviewed the advance practitioner's documentation, and I agree with, and take responsibility for the plan of care. 83-year-old female admitted with mechanical fall, head trauma with loss of consciousness, left periorbital contusion and distal left radius fracture. Incidentally elevated high-sensitivity troponin noted. No chest discomfort or ECG changes noted. There is a small basal inferior posterior wall motion abnormality on echocardiogram. Recommend conservative management at this time without IV anticoagulation in the setting of recent head trauma. Atenolol transitioned to carvedilol due to elevated BP and bradycardia. Continue aspirin, statin, ARB, and amlodipine. Patient is stable for transfer to rehab facility. No further inpatient cardiac testing or intervention recommended at this time. Cardiology will sign off. Please call with additional concerns/questions. Girma Yeung DO, [facility] Subjective Patient seen and examined. Chart, medications, telemetry reviewed. Complaints: Left wrist discomfort. Atenolol transitioned to Carvedilol. Blood pressures improved. Telemetry: Sinus/sinus bradycardia, heart rates in the 50s and 60s Review of Systems Review of Systems: Complete Review of Systems is as stated above, negative, or noncontributory. Physical Exam Physical Exam: General: Alert and oriented x3. No acute distress. Pleasant. Comfortable. Cooperative. Skin: No rash Eyes: Left periorbital ecchymosis. PER. Conjunctiva pink, sclera clear. HENT: Normocephalic. Atraumatic. Neck: Carotid bruits. No JVD. Heart: RRR, 60 bpm. Grade II/ systolic ejection murmur. No diastolic murmur. Lungs: Clear to auscultation. No rales. Abdomen: +BS. Soft. Nontender. No masses. No organomegaly. Extremities: Left wrist brace. No cyanosis. No lower extremity peripheral edema. Pulses: Posterior tibial=2/4. Limited neurological examination: No focal deficit. Results & Data Vital Signs (Past 12 Hours) Vital Signs Temp Pulse Pulse Resp BP BP Pulse Ox 04/16/24 11:36 36.6 C 57 L 16 145/70 H 97 04/16/24 07:12 36.6 C 70 18 145/68 H 96 04/16/24 07:00 51 L 04/16/24 03:34 37.0 C 60 14 135/76 92 O2 Del Method 04/16/24 11:36 Room Air 04/16/24 07:12 Room Air 04/16/24 07:00 04/16/24 03:34 Room Air Laboratory Results CBC 04/16/24 Range/Units 08:02 WBC 5.73 (4.8-10.8) K/ul RBC 3.73 L (4.20-5.40) M/uL Hgb 12.3 (12.0-16.0) g/dl Hct 36.9 L (37.0-47.0) % Plt Count 184 (130-400) K/uL Neut # (Auto) 2.88 (1.40-6.50) K/uL Lymph # (Auto) 2.05 (1.20-3.40) K/uL [place] # (Auto) 0.49 (0.11-0.59) K/uL Eos # (Auto) 0.18 (0.00-0.50) K/uL Baso # (Auto) 0.04 (0.00-0.20) K/uL Comprehensive Metabolic Panel 04/16/24 Range/Units 08:02 Sodium 135 L (136-145) mmol/L Potassium 4.0 (3.5-5.1) mmol/L Chloride 104 (98-107) mmol/L Carbon Dioxide 24 (21-32) mmol/L BUN 18 (6-23) mg/dl Creatinine 0.91 (0.6-1.2) mg/dl Glucose 117 H (70-99(Fasting)) mg/dl Calcium 9.5 (8.6-10.3) mg/dl Intake and Output 04/15/24 04/16/24 04/16/24 22:59 06:59 14:59 Intake Total 200 / 620 Balance 200 / 620 Intake: Oral 200 / 620 Other: Other Intake Source SIPS # Unmeasured Voids 1 1 Weight 83 kg Weight Measurement Method Built in [facility]
--- NOTE | 2024-04-16 12:46 | Hospitalist Progress Note ---
Date of Service April 16, 2024 Assessment & Plan (1) Fall from standing: Plan: Mechanical fall following missing while going to the parking lot Did not have any warning symptoms prior to the fall Injury to the head, left periorbital area, left hand and also left leg CT head: No acute intracranial abnormality or calvarial fracture. Left periorbital contusion. CT c-spine: There is no evidence of fracture or subluxation involving the cervical spine. Denies any more headache but has periorbital bruising MRI of the head has been negative Denies any headache, blurring of vision, any nausea no vomiting Awaiting placement (2) Facial hematoma: Plan: Left periorbital hematoma and bruising have been improving (3) Acute pain of left wrist: Plan: Patient is 83 year old female with PMH HTN, dyslipidemia, PSVT, PVCs, MATT stenosis CKD III, anxiety presented to ER with c/o fall missing 2 steps. Denies LOC. C/O pain to left forehead, left wrist, left knee and left ankle. Left wrist xray: No acute displaced fracture or dislocation. Lucent to the radial styloid should be correlated clinically to exclude an age-indeterminate nondisplaced fracture. Left ankle xray: No fracture In ER was placed in left wrist splint Will get Ortho evaluation-Appreciate input and recommendation Fall precautions PT/OT eval-appreciate input and recommendation The left wrist will have a splint placed by the orthopedic surgeon Was advised to take narcotic pain medications with caution (4) Elevated troponin: Plan: NSTEMI No chest pain and/or palpitation Troponin: 70 -->289 Troponin went up to 910 And the patient remained asymptomatic EKG sinus rhythm, Q waves septal leads, T wave flattening septal leads per my interpretation In ER given 324mg aspirin ER physician spoke to web content producer heel lift gouger, Dr Aguillon who recommended trending troponin and no heparin at this time R/O ACS. DDx NSTEMI Repeat EKG in am-Remained unremarkable Echo -LVEF was 55 to 60%, there is small sized basal inferior and posterior wall motion abnormality with hypokinesis of the segments, mild concentric LVH, moderate to severe MR, aortic valve sclerosis without significant valvular stenosis, trace tricuspid regurgitation and Doppler finding do not suggest pulmonary hypertension Lipid panel in am-Unremarkable, Will continue statin. In past history statin intolerance Continue aspirin, atenolol Cardiology consult-Appreciate input and recommendation Denies any cardiac symptoms (5) Hypomagnesemia: Plan: Magnesium: 1.6 In ER given 1GM magnesium sulfate Continue home magnesium oxide Magnesium lab in am (6) Acute hypokalemia: Plan: K: 3.4 Replace and monitor (7) HTN (hypertension): Plan: Continue amlodipine, atenolol, losartan (8) Dyslipidemia: Plan: Continue pravastatin (9) CKD (chronic kidney disease), stage III: Plan: Cr: 0.8. Was 0.8 with GFR: 68 in 01/16/24 Monitor renal functions (10) Anxiety: Plan: Continue paroxetine DVT Prophylaxis SQ Heparin Admission and Anticipated Discharge Date Admission Date: April 13, 2024 Subjective 04/14/2024 The patient was seen and examined in the telemetry unit She was admitted with a mechanical fall following missed a step Has had a head injury and left periorbital injury and also left wrist injury Denies any chest pain and/or palpitation prior to the incident or since admission 04/15/2024 The patient was seen and examined in telemetry unit She denies any cardiac symptoms but complains of left wrist pain She has had physical therapy and was advised for rehab Likely to be discharged tomorrow 04/16/2024 The patient was seen and examined in telemetry unit She complains of the pain in the left wrist Denies any chest pain, palpitation or shortness of breath She has been waiting to be placed Review of Systems Review of Systems: All systems reviewed and are unremarkable except as noted below Physical Exam Physical Exam: Lying in bed without any acute distress Constitutional: well developed, well nourished, + ill appearing and + obese Eyes: + periorbital abnormality (Periorbital b ruising on left) ENMT: external ear and nose normal, oropharynx normal Neck: trachea midline, no thyromegaly Respiratory: no respiratory distress Auscultation: lungs clear to auscultation bilaterally Cardiovascular: Rate/Rhythm: regular rate, regular rhythm and + bradycardic Heart Sounds: normal S1 and normal S2; no murmur Extremities: no edema Gastrointestinal (Abdomen): Inspection/Auscultation: normal bowel sounds; abdomen not distended Percussion/Palpation: abdomen soft; abdomen nontender Musculoskeletal: Extremities: + wrist abnormality (Swollen left wrist with painful movements in all directions) Neurologic: normal touch/pain/proprioception and moves all extremities; no focal motor deficits Lymphatic: no cervical or axillary lymphadenopathy Results & Data Results & Data Vital Signs (Past 12 Hours) Vital Signs Temp Pulse Pulse Resp BP BP Pulse Ox 04/16/24 11:36 36.6 C 57 L 16 145/70 H 97 04/16/24 07:12 36.6 C 70 18 145/68 H 96 04/16/24 07:00 51 L 04/16/24 03:34 37.0 C 60 14 135/76 92 O2 Del Method 04/16/24 11:36 Room Air 04/16/24 07:12 Room Air 04/16/24 07:00 04/16/24 03:34 Room Air Laboratory Results Short CBC 04/16/24 Range/Units 08:02 WBC 5.73 (4.8-10.8) K/ul Hgb 12.3 (12.0-16.0) g/dl Hct 36.9 L (37.0-47.0) % Plt Count 184 (130-400) K/uL BMP 04/16/24 08:02 Sodium 135 L Potassium 4.0 Chloride 104 Carbon Dioxide 24 BUN 18 Creatinine 0.91 Glucose 117 H Calcium 9.5 Medications Administered Current Inpatient Medications Acetaminophen (Acetaminophen 325 Mg Tab) 650 mg PO Q4H PRN PRN Reason: Pain or Fever Stop: 05/13/24 20:36 Last Admin: 04/14/24 19:48 Dose: 650 mg Acetaminophen/Codeine Phosphate (Acetaminophen W/Codeine #3 1 Tab) 1 tab PO Q4H PRN PRN Reason: Pain Stop: 05/14/24 22:04 Last Admin: 04/15/24 10:34 Dose: 1 tab Amlodipine Besylate (Amlodipine Besylate 5 Mg Tab) 5 mg PO DAILY ANDRES Stop: 05/14/24 08:59 Last Admin: 04/16/24 08:22 Dose: 5 mg Aspirin (Aspirin 81 Mg Ectab) 81 mg PO DAILY ADNRES Stop: 05/14/24 08:59 Last Admin: 04/16/24 08:22 Dose: 81 mg Carvedilol (Carvedilol 6.25 Mg Tab) 6.25 mg PO BIDM ANDRES Stop: 05/15/24 16:59 Last Admin: 04/16/24 08:22 Dose: 6.25 mg Dorzolamide HCl (Dorzolamide Hcl 2% Oph Soln 10 Ml Btl) 1 drops OPL BID ANDRES Stop: 05/13/24 20:59 Last Admin: 04/16/24 08:23 Dose: 1 drops Fluticasone Propionate (Fluticasone Propionate Na Spr 16 Gm Btl) 2 sprays KARLA DAILY PRN PRN Reason: Allergy Symptoms Stop: 05/13/24 20:36 Heparin Sodium (Porcine) (Heparin Sod 5,000 Unit/0.5 Ml Vial) 5,000 units SQ Q8 ANDRES Stop: 05/13/24 21:59 Last Admin: 04/16/24 04:37 Dose: 5,000 units Latanoprost (Latanoprost 0.005% Op Soln 2.5 Ml Btl) 1 drops OPL PM ANDRES Stop: 05/13/24 20:59 Last Admin: 04/15/24 20:21 Dose: 1 drops Losartan Potassium (Losartan Potassium 50 Mg Tab) 100 mg PO QAM ANDRES Stop: 05/14/24 08:59 Last Admin: 04/16/24 08:23 Dose: 100 mg Magnesium Oxide (Magnesium Oxide 400 Mg Tab) 400 mg PO DAILY ANDRES Stop: 05/14/24 08:59 Last Admin: 04/16/24 08:23 Dose: 400 mg Morphine Sulfate (Morphine Sulfate 2 Mg/Ml Carp) 2 mg IV Q3H PRN PRN Reason: Pain Stop: 04/28/24 23:17 Last Admin: 04/14/24 23:31 Dose: 2 mg Nitroglycerin (Nitroglycerin Sl 0.4 Mg/Tab Tab) 0.4 mg SL Q5M PRN PRN Reason: Chest Pain Stop: 05/13/24 20:36 Ondansetron HCl (Ondansetron Inj 2 Mg/Ml 2 Ml Vial) 4 mg IV Q6H PRN PRN Reason: Nausea Stop: 05/13/24 20:36 Pantoprazole Sodium (Pantoprazole 40 Mg Tab) 40 mg PO DAILY ANDRES Stop: 05/14/24 08:59 Last Admin: 04/16/24 08:23 Dose: 40 mg Paroxetine HCl (Paroxetine Hcl 10 Mg Tab) 10 mg PO QAM ANDRES Stop: 05/14/24 08:59 Last Admin: 04/16/24 08:23 Dose: 10 mg Polyethylene Glycol (Polyethylene (Miralax) 17 Gm Pack) 17 gm PO DAILY PRN PRN Reason: Constipation Stop: 05/13/24 20:36 Pravastatin Sodium (Pravastatin Sod 10 Mg Tab) 10 mg PO HS ANDRES Stop: 05/13/24 20:59 Last Admin: 04/15/24 20:20 Dose: 10 mg Vitamin D (Cholecalciferol 25 Mcg (1000 Units) Tab) 25 mcg PO DAILY ANDRES Stop: 05/14/24 08:59 Last Admin: 04/16/24 08:22 Dose: 25 mcg
[2024-04-16] MEDS: oxyCODONE/ACETAMINOPHEN 5mg/325mg TAB PO PRN (20:51)
[2024-04-17 06:08] LABS: Basophils # (auto) 0.04 K/uL (0.00-0.20); Basophils % (auto) 0.9 %; Eosinophils % (auto) 4.4 %; Hematocrit (blood only) 33.3 % (37.0-47.0); Hemoglobin 11.1 g/dl (12.0-16.0); Immature Granulocytes # (auto) 0.03 K/uL (0.01-0.20); Immature Granulocytes % (auto) 0.7 %; Lymphocytes % (auto) 44.2 %; Mean Corpuscular Hemoglobin 33.1 pg (25.0-34.0); Mean Corpuscular Hgb Conc 33.3 g/dL (32.0-36.0); Mean Corpuscular Volume 99.4 fL (80.0-100.0); Mean Platelet Volume 10.2 fL (9.4-12.4); Monocytes # (auto) 0.58 K/uL (0.11-0.59); Monocytes % (auto) 12.8 %; Neutrophils # (auto) 1.68 K/uL (1.40-6.50); Platelet Count 181 K/uL (130-400); RDW Coefficient of Variation 12.9 % (11.5-14.5); RDW Standard Deviation 46.8 fL (36.4-46.3); Red Blood Count 3.35 M/uL (4.20-5.40); White Blood Count 4.53 K/ul (4.8-10.8)
[2024-04-17 06:16] LABS: BUN Creatinine Ratio 22.5 (10-20); Calcium 9.3 mg/dl (8.6-10.3); Creatinine Clr Calc Pharmacy 45.5 ml/min; Est GFR (African American) 68.5 ml/min; Est GFR (Non-African American) 59.1 ml/min; Magnesium 1.9 mg/dl (1.7-2.4); Potassium 3.9 mmol/L (3.5-5.1)
[2024-04-17] MEDS: TIMOLOL GFS 0.25% OPH SOLN 74 DROPS/5 ML BTL OP SCH (11:40)
--- NOTE | 2024-04-17 14:46 | Hospitalist Progress Note ---
Date of Service April 17, 2024 Assessment & Plan (1) Fall from standing: Plan: Mechanical fall following missing while going to the parking lot Did not have any warning symptoms prior to the fall Injury to the head, left periorbital area, left hand and also left leg CT head: No acute intracranial abnormality or calvarial fracture. Left periorbital contusion. CT c-spine: There is no evidence of fracture or subluxation involving the cervical spine. Denies any more headache but has periorbital bruising MRI of the head has been negative Denies any headache, blurring of vision, any nausea no vomiting Remains medically stable to be discharged Awaiting placement (2) Facial hematoma: Plan: Left periorbital hematoma and bruising have been improving (3) Acute pain of left wrist: Plan: Patient is 83 year old female with PMH HTN, dyslipidemia, PSVT, PVCs, MATT stenosis CKD III, anxiety presented to ER with c/o fall missing 2 steps. Denies LOC. C/O pain to left forehead, left wrist, left knee and left ankle. Left wrist xray: No acute displaced fracture or dislocation. Lucent to the radial styloid should be correlated clinically to exclude an age-indeterminate nondisplaced fracture. Left ankle xray: No fracture In ER was placed in left wrist splint Will get Ortho evaluation-Appreciate input and recommendation Fall precautions PT/OT eval-appreciate input and recommendation The left wrist will have a splint placed by the orthopedic surgeon Was advised to take narcotic pain medications with caution Pain is much better with a splint and current pain medications (4) Elevated troponin: Plan: NSTEMI No chest pain and/or palpitation Troponin: 70 -->289 Troponin went up to 910 And the patient remained asymptomatic EKG sinus rhythm, Q waves septal leads, T wave flattening septal leads per my interpretation In ER given 324mg aspirin ER physician spoke to display fabrication supervisor sheep farmer, Dr Aguillon who recommended trending troponin and no heparin at this time R/O ACS. DDx NSTEMI Repeat EKG in am-Remained unremarkable Echo -LVEF was 55 to 60%, there is small sized basal inferior and posterior wall motion abnormality with hypokinesis of the segments, mild concentric LVH, moderate to severe MR, aortic valve sclerosis without significant valvular stenosis, trace tricuspid regurgitation and Doppler finding do not suggest pulmonary hypertension Lipid panel in am-Unremarkable, Will continue statin. In past history statin intolerance Continue aspirin, atenolol Cardiology consult-Appreciate input and recommendation Denies any cardiac symptoms (5) Hypomagnesemia: Plan: Magnesium: 1.6 In ER given 1GM magnesium sulfate Continue home magnesium oxide Magnesium lab in am-Normal (6) Acute hypokalemia: Plan: K: 3.4 Replace and monitor (7) HTN (hypertension): Plan: Continue amlodipine, atenolol, losartan (8) Dyslipidemia: Plan: Continue pravastatin (9) CKD (chronic kidney disease), stage III: Plan: Cr: 0.8. Was 0.8 with GFR: 68 in 01/16/24 Monitor renal functions (10) Anxiety: Plan: Continue paroxetine DVT Prophylaxis SQ Heparin Admission and Anticipated Discharge Date Admission Date: April 13, 2024 Subjective 04/14/2024 The patient was seen and examined in the telemetry unit She was admitted with a mechanical fall following missed a step Has had a head injury and left periorbital injury and also left wrist injury Denies any chest pain and/or palpitation prior to the incident or since admission 04/15/2024 The patient was seen and examined in telemetry unit She denies any cardiac symptoms but complains of left wrist pain She has had physical therapy and was advised for rehab Likely to be discharged tomorrow 04/16/2024 The patient was seen and examined in telemetry unit She complains of the pain in the left wrist Denies any chest pain, palpitation or shortness of breath She has been waiting to be placed 04/17/2024 The patient was seen and examined in telemetry unit She has been feeling much better today and is out of bed on a chair Her pain in the left hand has diminished Denies any cardiac symptoms Review of Systems Review of Systems: All systems reviewed and are unremarkable except as noted below Physical Exam Physical Exam: Lying in bed without any acute distress Constitutional: well developed, well nourished, + ill appearing and + obese Eyes: + periorbital abnormality (Periorbital b ruising on left) ENMT: external ear and nose normal, oropharynx normal Neck: trachea midline, no thyromegaly Respiratory: no respiratory distress Auscultation: lungs clear to auscul tation bilaterally Cardiovascular: Rate/Rhythm: regular rate, regular rhythm and + bradycardic Heart Sounds: normal S1 and normal S2; no murmur Extremities: no edema Gastrointestinal (Abdomen): Inspection/Auscultation: normal bowel sounds; abdomen not distended Percussion/Palpation: abdomen soft; abdomen nontender Musculoskeletal: Extremities: + wrist abnormality (Swollen left wrist with painful movements in all directions) Neurologic: normal touch/pain/proprioception and moves all extremities; no focal motor deficits Lymphatic: no cervical or axillary lymphadenopathy Results & Data Results & Data Vital Signs (Past 12 Hours) Vital Signs Temp Pulse Pulse Resp BP Pulse Ox O2 Del Method 04/17/24 12:14 36.3 C L 58 L 18 113/76 94 Room Air 04/17/24 08:25 36.9 C 64 18 137/73 95 Room Air 04/17/24 07:23 57 L Laboratory Results Short CBC 04/17/24 Range/Units 05:27 WBC 4.53 L (4.8-10.8) K/ul Hgb 11.1 L (12.0-16.0) g/dl Hct 33.3 L (37.0-47.0) % Plt Count 181 (130-400) K/uL [facility] 04/17/24 05:27 Sodium 137 Potassium 3.9 Chloride 106 Carbon Dioxide 24 BUN 20 Creatinine 0.89 Glucose 88 Calcium 9.3 Medications Administered Current Inpatient Medications Acetaminophen (Acetaminophen 325 Mg Tab) 650 mg PO Q4H PRN PRN Reason: Pain or Fever Stop: 05/13/24 20:36 Last Admin: 04/14/24 19:48 Dose: 650 mg Amlodipine Besylate (Amlodipine Besylate 5 Mg Tab) 5 mg PO DAILY [facility] Stop: 05/14/24 08:59 Last Admin: 04/17/24 09:15 Dose: 5 mg Aspirin (Aspirin 81 Mg Ectab) 81 mg PO DAILY [facility] Stop: 05/14/24 08:59 Last Admin: 04/17/24 09:15 Dose: 81 mg Carvedilol (Carvedilol 6.25 Mg Tab) 6.25 mg PO BIDM [facility]RES Stop: 05/15/24 16:59 Last Admin: 04/17/24 09:16 Dose: 6.25 mg Dorzolamide HCl (Dorzolamide Hcl 2% Oph Soln 10 Ml Btl) 1 drops OPL BID [facility] Stop: 05/13/24 20:59 Last Admin: 04/17/24 10:13 Dose: 1 drops Fluticasone Propionate (Fluticasone Propionate Na Spr 16 Gm Btl) 2 sprays KARLA DAILY PRN PRN Reason: Allergy Symptoms Stop: 05/13/24 20:36 Heparin Sodium (Porcine) (Heparin Sod 5,000 Unit/0.5 Ml Vial) 5,000 units SQ Q8 [facility] Stop: 05/13/24 21:59 Last Admin: 04/17/24 06:18 Dose: 5,000 units Latanoprost (Latanoprost 0.005% Op Soln 2.5 Ml Btl) 1 drops OPL PM [facility] Stop: 05/13/24 20:59 Last Admin: 04/16/24 20:52 Dose: 1 drops Losartan Potassium (Losartan Potassium 50 Mg Tab) 100 mg PO QAM [facility] Stop: 05/14/24 08:59 Last Admin: 04/17/24 09:16 Dose: 100 mg Magnesium Oxide (Magnesium Oxide 400 Mg Tab) 400 mg PO DAILY [facility] Stop: 05/14/24 08:59 Last Admin: 04/17/24 09:16 Dose: 400 mg Morphine Sulfate (Morphine Sulfate 2 Mg/Ml Carp) 2 mg IV Q3H PRN PRN Reason: Pain Stop: 04/28/24 23:17 Last Admin: 04/14/24 23:31 Dose: 2 mg Nitroglycerin (Nitroglycerin Sl 0.4 Mg/Tab Tab) 0.4 mg SL Q5M PRN PRN Reason: Chest Pain Stop: 05/13/24 20:36 Ondansetron HCl (Ondansetron Inj 2 Mg/Ml 2 Ml Vial) 4 mg IV Q6H PRN PRN Reason: Nausea Stop: 05/13/24 20:36 Oxycodone/Acetaminophen (Oxycodone/Acetaminophen 5mg/325mg Tab) 1 tab PO Q6H PRN PRN Reason: Pain Stop: 04/30/24 12:46 Last Admin: 04/16/24 20:51 Dose: 1 tab Pantoprazole Sodium (Pantoprazole 40 Mg Tab) 40 mg PO DAILY [facility]RES Stop: 05/14/24 08:59 Last Admin: 04/17/24 09:16 Dose: 40 mg Paroxetine HCl (Paroxetine Hcl 10 Mg Tab) 10 mg PO QAM ANDRES Stop: 05/14/24 08:59 Last Admin: 04/17/24 09:15 Dose: 10 mg Polyethylene Glycol (Polyethylene (Miralax) 17 Gm Pack) 17 gm PO DAILY PRN PRN Reason: Constipation Stop: 05/13/24 20:36 Pravastatin Sodium (Pravastatin Sod 10 Mg Tab) 10 mg PO HS ANDRES Stop: 05/13/24 20:59 Last Admin: 04/16/24 20:51 Dose: 10 mg Timolol Maleate (Timolol Gfs 0.25% Oph Soln 74 Drops/5 Ml Btl) 1 drops OP UD ANDRES Stop: 05/17/24 10:44 Last Admin: 04/17/24 11:40 Dose: 1 drops Vitamin D (Cholecalciferol 25 Mcg (1000 Units) Tab) 25 mcg PO DAILY ANDRES Stop: 05/14/24 08:59 Last Admin: 04/17/24 09:15 Dose: 25 mcg
--- NOTE | 2024-04-18 15:17 | Hospitalist Progress Note ---
Date of Service April 18, 2024 Assessment & Plan (1) Fall from standing: Plan: Mechanical fall following missing while going to the parking lot Did not have any warning symptoms prior to the fall Injury to the head, left periorbital area, left hand and also left leg CT head: No acute intracranial abnormality or calvarial fracture. Left periorbital contusion. CT c-spine: There is no evidence of fracture or subluxation involving the cervical spine. Denies any more headache but has periorbital bruising MRI of the head has been negative Denies any headache, blurring of vision, any nausea no vomiting Remains medically stable to be discharged Awaiting placement Has been getting physical therapy and recommended rehab and awaiting placement (2) Facial hematoma: Plan: Left periorbital hematoma and bruising have been improving Much improved periorbital swelling and bruising (3) Acute pain of left wrist: Plan: Patient is 83 year old female with PMH HTN, dyslipidemia, PSVT, PVCs, MATT stenosis CKD III, anxiety presented to ER with c/o fall missing 2 steps. Denies LOC. C/O pain to left forehead, left wrist, left knee and left ankle. Left wrist xray: No acute displaced fracture or dislocation. Lucent to the radial styloid should be correlated clinically to exclude an age-indeterminate nondisplaced fracture. Left ankle xray: No fracture In ER was placed in left wrist splint Will get Ortho evaluation-Appreciate input and recommendation Fall precautions PT/OT eval-appreciate input and recommendation The left wrist will have a splint placed by the orthopedic surgeon Was advised to take narcotic pain medications with caution Pain is much better with a splint and current pain medications (4) Elevated troponin: Plan: NSTEMI No chest pain and/or palpitation Troponin: 70 -->289 Troponin went up to 910 And the patient remained asymptomatic EKG sinus rhythm, Q waves septal leads, T wave flattening septal leads per my interpretation In ER given 324mg aspirin ER physician spoke to product control and logistics analyst network designer, Dr Aguillon who recommended trending troponin and no heparin at this time R/O ACS. DDx NSTEMI Repeat EKG in am-Remained unremarkable Echo -LVEF was 55 to 60%, there is small sized basal inferior and posterior wall motion abnormality with hypokinesis of the segments, mild concentric LVH, moderate to severe MR, aortic valve sclerosis without significant valvular stenosis, trace tricuspid regurgitation and Doppler finding do not suggest pulmonary hypertension Lipid panel in am-Unremarkable, Will continue statin. In past history statin intolerance Continue aspirin, atenolol Cardiology consult-Appreciate input and recommendation Denies any cardiac symptoms No further issues (5) Hypomagnesemia: Plan: Magnesium: 1.6 In ER given 1GM magnesium sulfate Continue home magnesium oxide Magnesium lab in am-Normal (6) Acute hypokalemia: Plan: K: 3.4 Replace and monitor (7) HTN (hypertension): Plan: Continue amlodipine, atenolol, losartan (8) Dyslipidemia: Plan: Continue pravastatin (9) CKD (chronic kidney disease), stage III: Plan: Cr: 0.8. Was 0.8 with GFR: 68 in 01/16/24 Monitor renal functions (10) Anxiety: Plan: Continue paroxetine DVT Prophylaxis SQ Heparin Admission and Anticipated Discharge Date Admission Date: April 13, 2024 Subjective 04/14/2024 The patient was seen and examined in the telemetry unit She was admitted with a mechanical fall following missed a step Has had a head injury and left periorbital injury and also left wrist injury Denies any chest pain and/or palpitation prior to the incident or since admission 04/15/2024 The patient was seen and examined in telemetry unit She denies any cardiac symptoms but complains of left wrist pain She has had physical therapy and was advised for rehab Likely to be discharged tomorrow 04/16/2024 The patient was seen and examined in telemetry unit She complains of the pain in the left wrist Denies any chest pain, palpitation or shortness of breath She has been waiting to be placed 04/17/2024 The patient was seen and examined in telemetry unit She has been feeling much better today and is out of bed on a chair Her pain in the left hand has diminished Denies any cardiac symptoms 04/18/2024 The patient was seen and examined in telemetry unit She has been feeling much better denies any cardiac symptoms Her left wrist is much improved She can move her fingers without any problem Review of Systems Review of Systems: All systems reviewed and are unremarkable except as noted below Physical Exam Physical Exam: Lying in bed without any acute distress Constitutional: well developed, well nourished, + ill appearing and + obese Eyes: + periorbital abnormality (Periorbital b ruising on left) ENMT: external ear and nose normal, oropharynx normal Neck: trachea midline, no thyromegaly Respiratory: no respiratory distress Auscultation: lungs clear to auscultation bilaterally Cardiovascular: Rate/Rhythm: regular rate, regular rhythm and + bradycardic Heart Sounds: normal S1 and normal S2; no murmur Extremities: no edema Gastrointestinal (Abdomen): Inspection/Auscultation: normal bowel sounds; abdomen not distended Percussion/Palpation: abdomen soft; abdomen nontender Musculoskeletal: Extremities: + wrist abnormality (Swollen left wrist with painful movements in all directions) Neurologic: normal touch/pain/proprioception and moves all extremities; no focal motor deficits Lymphatic: no cervical or axillary lymphadenopathy Results & Data Results & Data Vital Signs (Past 12 Hours) Vital Signs Temp Pulse Pulse Resp BP Pulse Ox O2 Del Method 04/18/24 14:46 58 L 04/18/24 14:36 36.5 C 57 L 18 148/82 H 96 Room Air 04/18/24 11:04 36.8 C 57 L 18 154/74 H 96 Room Air 04/18/24 08:16 72 04/18/24 07:46 36.7 C 56 L 18 142/84 H 94 Room Air 04/18/24 07:28 56 L 04/18/24 03:35 36.7 C 61 19 125/73 95 Room Air Medications Administered Current Inpatient Medications Acetaminophen (Acetaminophen 325 Mg Tab) 650 mg PO Q4H PRN PRN Reason: Pain or Fever Stop: 05/13/24 20:36 Last Admin: 04/17/24 21:21 Dose: 650 mg Amlodipine Besylate (Amlodipine Besylate 5 Mg Tab) 5 mg PO DAILY [facility] Stop: 05/14/24 08:59 Last Admin: 04/18/24 08:15 Dose: 5 mg Aspirin (Aspirin 81 Mg Ectab) 81 mg PO DAILY ANDRES Stop: 05/14/24 08:59 Last Admin: 04/18/24 08:15 Dose: 81 mg Carvedilol (Carvedilol 6.25 Mg Tab) 6.25 mg PO BIDM ANDRES Stop: 05/15/24 16:59 Last Admin: 04/18/24 08:14 Dose: 6.25 mg Dorzolamide HCl (Dorzolamide Hcl 2% Oph Soln 10 Ml Btl) 1 drops OPL BID [facility] Stop: 05/13/24 20:59 Last Admin: 04/18/24 08:15 Dose: 1 drops Fluticasone Propionate (Fluticasone Propionate Na Spr 16 Gm Btl) 2 sprays KARLA DAILY PRN PRN Reason: Allergy Symptoms Stop: 05/13/24 20:36 Heparin Sodium (Porcine) (Heparin Sod 5,000 Unit/0.5 Ml Vial) 5,000 units SQ Q8 ANDRES Stop: 05/13/24 21:59 Last Admin: 04/18/24 13:27 Dose: 5,000 units Latanoprost (Latanoprost 0.005% Op Soln 2.5 Ml Btl) 1 drops OPL PM ANDRES Stop: 05/13/24 20:59 Last Admin: 04/17/24 20:11 Dose: 1 drops Losartan Potassium (Losartan Potassium 50 Mg Tab) 100 mg PO QAM [facility] Stop: 05/14/24 08:59 Last Admin: 04/18/24 08:15 Dose: 100 mg Magnesium Oxide (Magnesium Oxide 400 Mg Tab) 400 mg PO DAILY ANDRES Stop: 05/14/24 08:59 Last Admin: 04/18/24 08:15 Dose: 400 mg Morphine Sulfate (Morphine Sulfate 2 Mg/Ml Carp) 2 mg IV Q3H PRN PRN Reason: Pain Stop: 04/28/24 23:17 Last Admin: 04/14/24 23:31 Dose: 2 mg Nitroglycerin (Nitroglycerin Sl 0.4 Mg/Tab Tab) 0.4 mg SL Q5M PRN PRN Reason: Chest Pain Stop: 05/13/24 20:36 Ondansetron HCl (Ondansetron Inj 2 Mg/Ml 2 Ml Vial) 4 mg IV Q6H PRN PRN Reason: Nausea Stop: 05/13/24 20:36 Oxycodone/Acetaminophen (Oxycodone/Acetaminophen 5mg/325mg Tab) 1 tab PO Q6H PRN PRN Reason: Pain Stop: 04/30/24 12:46 Last Admin: 04/16/24 20:51 Dose: 1 tab Pantoprazole Sodium (Pantoprazole 40 Mg Tab) 40 mg PO DAILY ANDRES Stop: 05/14/24 08:59 Last Admin: 04/18/24 08:15 Dose: 40 mg Paroxetine HCl (Paroxetine Hcl 10 Mg Tab) 10 mg PO QAM [facility] Stop: 05/14/24 08:59 Last Admin: 04/18/24 08:15 Dose: 10 mg Polyethylene Glycol (Polyethylene (Miralax) 17 Gm Pack) 17 gm PO DAILY PRN PRN Reason: Constipation Stop: 05/13/24 20:36 Pravastatin Sodium (Pravastatin Sod 10 Mg Tab) 10 mg PO HS ANDRES Stop: 05/13/24 20:59 Last Admin: 04/17/24 20:11 Dose: 10 mg Timolol Maleate (Timolol Gfs 0.25% Oph Soln 74 Drops/5 Ml Btl) 1 drops OP UD [facility]RES Stop: 05/17/24 10:44 Last Admin: 04/18/24 09:25 Dose: 1 drops Vitamin D (Cholecalciferol 25 Mcg (1000 Units) Tab) 25 mcg PO DAILY ANDRES Stop: 05/14/24 08:59 Last Admin: 04/18/24 08:15 Dose: 25 mcg
--- NOTE | 2024-04-19 13:40 | Hospitalist Progress Note ---
Date of Service April 19, 2024 Assessment & Plan (1) Fall from standing: Plan: Mechanical fall following missing while going to the parking lot Did not have any warning symptoms prior to the fall Injury to the head, left periorbital area, left hand and also left leg CT head: No acute intracranial abnormality or calvarial fracture. Left periorbital contusion. CT c-spine: There is no evidence of fracture or subluxation involving the cervical spine. Denies any more headache but has periorbital bruising MRI of the head has been negative Denies any headache, blurring of vision, any nausea no vomiting Remains medically stable to be discharged Awaiting placement Has been getting physical therapy and recommended rehab and awaiting placement Medically stable and awaiting placement (2) Facial hematoma: Plan: Left periorbital hematoma and bruising have been improving Much improved periorbital swelling and bruising (3) Acute pain of left wrist: Plan: Patient is 83 year old female with PMH HTN, dyslipidemia, PSVT, PVCs, MATT stenosis CKD III, anxiety presented to ER with c/o fall missing 2 steps. Denies LOC. C/O pain to left forehead, left wrist, left knee and left ankle. Left wrist xray: No acute displaced fracture or dislocation. Lucent to the radial styloid should be correlated clinically to exclude an age-indeterminate nondisplaced fracture. Left ankle xray: No fracture In ER was placed in left wrist splint Will get Ortho evaluation-Appreciate input and recommendation Fall precautions PT/OT eval-appreciate input and recommendation The left wrist will have a splint placed by the orthopedic surgeon Was advised to take narcotic pain medications with caution Pain is much better with a splint and current pain medications Still has some pain with movement of the left wrist (4) Elevated troponin: Plan: NSTEMI No chest pain and/or palpitation Troponin: 70 -->289 Troponin went up to 910 And the patient remained asymptomatic EKG sinus rhythm, Q waves septal leads, T wave flattening septal leads per my interpretation In ER given 324mg aspirin ER physician spoke to inventory control/shipping receiving trade manager, Dr Aguillon who recommended trending troponin and no heparin at this time R/O ACS. DDx NSTEMI Repeat EKG in am-Remained unremarkable Echo -LVEF was 55 to 60%, there is small sized basal inferior and posterior wall motion abnormality with hypokinesis of the segments, mild concentric LVH, moderate to severe MR, aortic valve sclerosis without significant valvular stenosis, trace tricuspid regurgitation and Doppler finding do not suggest pulmonary hypertension Lipid panel in am-Unremarkable, Will continue statin. In past history statin intolerance Continue aspirin, atenolol Cardiology consult-Appreciate input and recommendation Denies any cardiac symptoms No further issues (5) Hypomagnesemia: Plan: Magnesium: 1.6 In ER given 1GM magnesium sulfate Continue home magnesium oxide Magnesium lab in am-Normal (6) Acute hypokalemia: Plan: K: 3.4 Replace and monitor (7) HTN (hypertension): Plan: Continue amlodipine, atenolol, losartan (8) Dyslipidemia: Plan: Continue pravastatin (9) CKD (chronic kidney disease), stage III: Plan: Cr: 0.8. Was 0.8 with GFR: 68 in 01/16/24 Monitor renal functions (10) Anxiety: Plan: Continue paroxetine DVT Prophylaxis SQ Heparin Admission and Anticipated Discharge Date Admission Date: April 13, 2024 Subjective 04/14/2024 The patient was seen and examined in the telemetry unit She was admitted with a mechanical fall following missed a step Has had a head injury and left periorbital injury and also left wrist injury Denies any chest pain and/or palpitation prior to the incident or since admission 04/15/2024 The patient was seen and examined in telemetry unit She denies any cardiac symptoms but complains of left wrist pain She has had physical therapy and was advised for rehab Likely to be discharged tomorrow 04/16/2024 The patient was seen and examined in telemetry unit She complains of the pain in the left wrist Denies any chest pain, palpitation or shortness of breath She has been waiting to be placed 04/17/2024 The patient was seen and examined in telemetry unit She has been feeling much better today and is out of bed on a chair Her pain in the left hand has diminished Denies any cardiac symptoms 04/18/2024 The patient was seen and examined in telemetry unit She has been feeling much better denies any cardiac symptoms Her left wrist is much improved She can move her fingers without any problem 04/19/2024 The patient was seen and examined in telemetry unit She complains of pain in the left wrist Denies any cardiac symptoms Has been getting physical therapy and awaiting placement Review of Systems Review of Systems: All systems reviewed and are unremarkable except as noted below Physical Exam Physical Exam: Lying in bed without any acute distress Constitutional: well developed, well nourished, + ill appearing and + obese Eyes: + periorbital abnormality (Periorbital b ruising on left) ENMT: external ear and nose normal, oropharynx normal Neck: trachea midline, no thyromegaly Respiratory: no respiratory distress Auscultation: lungs clear to auscultation bilaterally Cardiovascular: Rate/Rhythm: regular rate, regular rhythm and + bradycardic Heart Sounds: normal S1 and normal S2; no murmur Extremities: no edema Gastrointestinal (Abdomen): Inspection/Auscultation: normal bowel sounds; abdomen not distended Percussion/Palpation: abdomen soft; abdomen nontender Musculoskeletal: Extremities: + wrist abnormality (Swollen left wrist with painful movements in all directions) Neurologic: normal touch/pain/proprioception and moves all extremities; no focal motor deficits Lymphatic: no cervical or axillary lymphadenopathy Results & Data Results & Data Vital Signs (Past 12 Hours) Vital Signs Temp Pulse Pulse Resp BP Pulse Ox O2 Del Method 04/19/24 11:28 36.6 C 54 L 18 128/81 96 Room Air 04/19/24 11:08 51 L 04/19/24 08:15 36.6 C 61 18 133/79 94 Room Air 04/19/24 03:53 36.9 C 65 16 156/71 H 95 Room Air Medications Administered Current Inpatient Medications Acetaminophen (Acetaminophen 325 Mg Tab) 650 mg PO Q4H PRN PRN Reason: Pain or Fever Stop: 05/13/24 20:36 Last Admin: 04/18/24 21:57 Dose: 650 mg Amlodipine Besylate (Amlodipine Besylate 5 Mg Tab) 5 mg PO DAILY [facility] Stop: 05/14/24 08:59 Last Admin: 04/19/24 09:02 Dose: 5 mg Aspirin (Aspirin 81 Mg Ectab) 81 mg PO DAILY [facility] Stop: 05/14/24 08:59 Last Admin: 04/19/24 09:01 Dose: 81 mg Carvedilol (Carvedilol 6.25 Mg Tab) 6.25 mg PO BIDM [facility] Stop: 05/15/24 16:59 Last Admin: 04/19/24 09:01 Dose: 6.25 mg Dorzolamide HCl (Dorzolamide Hcl 2% Oph Soln 10 Ml Btl) 1 drops OPL BID [facility] Stop: 05/13/24 20:59 Last Admin: 04/19/24 09:01 Dose: 1 drops Fluticasone Propionate (Fluticasone Propionate Na Spr 16 Gm Btl) 2 sprays KARLA DAILY PRN PRN Reason: Allergy Symptoms Stop: 05/13/24 20:36 Heparin Sodium (Porcine) (Heparin Sod 5,000 Unit/0.5 Ml Vial) 5,000 units SQ Q8 [facility]RES Stop: 05/13/24 21:59 Last Admin: 04/19/24 05:59 Dose: 5,000 units Latanoprost (Latanoprost 0.005% Op Soln 2.5 Ml Btl) 1 drops OPL PM [facility] Stop: 05/13/24 20:59 Last Admin: 04/18/24 21:30 Dose: 1 drops Losartan Potassium (Losartan Potassium 50 Mg Tab) 100 mg PO QAM [facility] Stop: 05/14/24 08:59 Last Admin: 04/19/24 09:01 Dose: 100 mg Magnesium Oxide (Magnesium Oxide 400 Mg Tab) 400 mg PO DAILY [facility] Stop: 05/14/24 08:59 Last Admin: 04/19/24 09:02 Dose: 400 mg Morphine Sulfate (Morphine Sulfate 2 Mg/Ml Carp) 2 mg IV Q3H PRN PRN Reason: Pain Stop: 04/28/24 23:17 Last Admin: 04/14/24 23:31 Dose: 2 mg Nitroglycerin (Nitroglycerin Sl 0.4 Mg/Tab Tab) 0.4 mg SL Q5M PRN PRN Reason: Chest Pain Stop: 05/13/24 20:36 Ondansetron HCl (Ondansetron Inj 2 Mg/Ml 2 Ml Vial) 4 mg IV Q6H PRN PRN Reason: Nausea Stop: 05/13/24 20:36 Oxycodone/Acetaminophen (Oxycodone/Acetaminophen 5mg/325mg Tab) 1 tab PO Q6H PRN PRN Reason: Pain Stop: 04/30/24 12:46 Last Admin: 04/16/24 20:51 Dose: 1 tab Pantoprazole Sodium (Pantoprazole 40 Mg Tab) 40 mg PO DAILY [facility] Stop: 05/14/24 08:59 Last Admin: 04/19/24 09:02 Dose: 40 mg Paroxetine HCl (Paroxetine Hcl 10 Mg Tab) 10 mg PO QAM [facility]RES Stop: 05/14/24 08:59 Last Admin: 04/19/24 09:01 Dose: 10 mg Polyethylene Glycol (Polyethylene (Miralax) 17 Gm Pack) 17 gm PO DAILY PRN PRN Reason: Constipation Stop: 05/13/24 20:36 Pravastatin Sodium (Pravastatin Sod 10 Mg Tab) 10 mg PO HS ANDRES Stop: 05/13/24 20:59 Last Admin: 04/18/24 21:30 Dose: 10 mg Timolol Maleate (Timolol Gfs 0.25% Oph Soln 74 Drops/5 Ml Btl) 1 drops OP UD [facility]RES Stop: 05/17/24 10:44 Last Admin: 04/19/24 09:01 Dose: 1 drops Vitamin D (Cholecalciferol 25 Mcg (1000 Units) Tab) 25 mcg PO DAILY [facility] Stop: 05/14/24 08:59 Last Admin: 04/19/24 09:02 Dose: 25 mcg
--- NOTE | 2024-04-19 16:43 | Electrocardiogram Report ---
Test Reason : Blood Pressure : */* mmHG Vent. Rate : 59 BPM Atrial Rate : 59 BPM P-R Int : 214 ms QRS Dur : 74 ms QT Int : 430 ms P-R-T Axes : 66 12 50 degrees QTcB Int : 425 ms Sinus bradycardia with 1st degree A-V block Otherwise normal ECG When compared with ECG of 14-Apr-2024 07:12, No significant change was found Confirmed by Candice Edwards ([place]) on 04/19/2024 4:43:26 PM Referred By: REFERRED SELF Confirmed By: Candice Edwards
[2024-04-20 07:55] VITALS: TEMP 97.9
--- NOTE | 2024-04-20 11:07 | Hospitalist Progress Note ---
Date of Service April 20, 2024 Assessment & Plan (1) Fall from standing: Plan: Mechanical fall following missing while going to the parking lot Did not have any warning symptoms prior to the fall Injury to the head, left periorbital area, left hand and also left leg CT head: No acute intracranial abnormality or calvarial fracture. Left periorbital contusion. CT c-spine: There is no evidence of fracture or subluxation involving the cervical spine. Denies any more headache but has periorbital bruising MRI of the head has been negative Denies any headache, blurring of vision, any nausea no vomiting Remains medically stable to be discharged Awaiting placement Has been getting physical therapy and recommended rehab and awaiting placement Medically stable and awaiting placement- She is denied from skilled care Plan to send her home this afternoon with home PT and OT (2) Facial hematoma: Plan: Left periorbital hematoma and bruising have been improving Much improved periorbital swelling and bruising (3) Acute pain of left wrist: Plan: Patient is 83 year old female with PMH HTN, dyslipidemia, PSVT, PVCs, MATT sten osis CKD III, anxiety presented to ER with c/o fall missing 2 steps. Denies LOC. C/O pain to left forehead, left wrist, left knee and left ankle. Left wrist xray: No acute displaced fracture or dislocation. Lucent to the radial styloid should be correlated clinically to exclude an age-indeterminate nondisplaced fracture. Left ankle xray: No fracture In ER was placed in left wrist splint Will get Ortho evaluation-Appreciate input and recommendation Fall precautions PT/OT eval-appreciate input and recommendation The left wrist will have a splint placed by the orthopedic surgeon Was advised to take narcotic pain medications with caution Pain is much better with a splint and current pain medications Still has some pain with movement of the left wrist Pain is much better and the wrist (4) Elevated troponin: Plan: NSTEMI No chest pain and/or palpitation Troponin: 70 -->289 Troponin went up to 910 And the patient remained asymptomatic EKG sinus rhythm, Q waves septal leads, T wave flattening septal leads per my interpretation In ER given 324mg aspirin ER physician spoke to press operator carbon blocks nurse transition, Dr Aguillon who recommended trending troponin and no heparin at this time R/O ACS. DDx NSTEMI Repeat EKG in am-Remained unremarkable Echo -LVEF was 55 to 60%, there is small sized basal inferior and posterior wall motion abnormality with hypokinesis of the segments, mild concentric LVH, moderate to severe MR, aortic valve sclerosis without significant valvular stenosis, trace tricuspid regurgitation and Doppler finding do not suggest pulmonary hypertension Lipid panel in am-Unremarkable, Will continue statin. In past history statin intolerance Continue aspirin, atenolol Cardiology consult-Appreciate input and recommendation Denies any cardiac symptoms No further issues (5) Hypomagnesemia: Plan: Magnesium: 1.6 In ER given 1GM magnesium sulfate Continue home magnesium oxide Magnesium lab in am-Normal (6) Acute hypokalemia: Plan: K: 3.4 Replace and monitor (7) HTN (hypertension): Plan: Continue amlodipine, atenolol, losartan (8) Dyslipidemia: Plan: Continue pravastatin (9) CKD (chronic kidney disease), stage III: Plan: Cr: 0.8. Was 0.8 with GFR: 68 in 01/16/24 Monitor renal functions (10) Anxiety: Plan: Continue paroxetine DVT Prophylaxis SQ Heparin Admission and Anticipated Discharge Date Admission Date: April 13, 2024 Subjective 04/14/2024 The patient was seen and examined in the telemetry unit She was admitted with a mechanical fall following missed a step Has had a head injury and left periorbital injury and also left wrist injury Denies any chest pain and/or palpitation prior to the incident or since admission 04/15/2024 The patient was seen and examined in telemetry unit She denies any cardiac symptoms but complains of left wrist pain She has had physical therapy and was advised for rehab Likely to be discharged tomorrow 04/16/2024 The patient was seen and examined in telemetry unit She complains of the pain in the left wrist Denies any chest pain, palpitation or shortness of breath She has been waiting to be placed 04/17/2024 The patient was seen and examined in telemetry unit She has been feeling much better today and is out of bed on a chair Her pain in the left hand has diminished Denies any cardiac symptoms 04/18/2024 The patient was seen and examined in telemetry unit She has been feeling much better denies any cardiac symptoms Her left wrist is much improved She can move her fingers without any problem 04/19/2024 The patient was seen and examined in telemetry unit She complains of pain in the left wrist Denies any cardiac symptoms Has been getting physical therapy and awaiting placement 04/20/2024 The patient was seen and examined in telemetry unit She has been stable and did very well with physical therapy She was denied from skilled care Likely discharge this afternoon with home PT and OT Review of Systems Review of Systems: All systems reviewed and are unremarkable except as noted below Physical Exam Physical Exam: Lying in bed without any acute distress Constitutional: well developed, well nourished, + ill appearing and + obese Eyes: + periorbital abnormality (Periorbital b ruising on left) ENMT: external ear and nose normal, oropharynx normal Neck: trachea midline, no thyromegaly Respiratory: no respiratory distress Auscultation: lungs clear to auscultation bilaterally Cardiovascular: Rate/Rhythm: regular rate, regular rhythm and + bradycardic Heart Sounds: normal S1 and normal S2; no murmur Extremities: no edema Gastrointestinal (Abdomen): Inspection/Auscultation: normal bowel sounds; abdomen not distended Percussion/Palpation: abdomen soft; abdomen nontender Musculoskeletal: Extremities: + wrist abnormality (Swollen left wrist with painful movements in all directions) Neurologic: normal touch/pain/proprioception and moves all extremities; no focal motor deficits Lymphatic: no cervical or axillary lymphadenopathy Results & Data Results & Data Vital Signs (Past 12 Hours) Vital Signs Temp Pulse Pulse Resp BP Pulse Ox O2 Del Method 04/20/24 10:54 36.6 C 60 20 114/70 96 Room Air 04/20/24 07:54 36.6 C 59 L 18 127/72 97 Room Air 04/20/24 07:09 53 L 04/20/24 02:47 36.7 C 58 L 18 132/78 95 Room Air 04/19/24 23:30 63 Medications Administered Current Inpatient Medications Acetaminophen (Acetaminophen 325 Mg Tab) 650 mg PO Q4H PRN PRN Reason: Pain or Fever Stop: 05/13/24 20:36 Last Admin: 04/18/24 21:57 Dose: 650 mg Amlodipine Besylate (Amlodipine Besylate 5 Mg Tab) 5 mg PO DAILY [facility] Stop: 05/14/24 08:59 Last Admin: 04/20/24 08:31 Dose: 5 mg Aspirin (Aspirin 81 Mg Ectab) 81 mg PO DAILY [facility] Stop: 05/14/24 08:59 Last Admin: 04/20/24 08:31 Dose: 81 mg Carvedilol (Carvedilol 6.25 Mg Tab) 6.25 mg PO BIDM [facility] Stop: 05/15/24 16:59 Last Admin: 04/20/24 08:31 Dose: 6.25 mg Dorzolamide HCl (Dorzolamide Hcl 2% Oph Soln 10 Ml Btl) 1 drops OPL BID ANDRES Stop: 05/13/24 20:59 Last Admin: 04/20/24 08:30 Dose: 1 drops Fluticasone Propionate (Fluticasone Propionate Na Spr 16 Gm Btl) 2 sprays KARLA DAILY PRN PRN Reason: Allergy Symptoms Stop: 05/13/24 20:36 Heparin Sodium (Porcine) (Heparin Sod 5,000 Unit/0.5 Ml Vial) 5,000 units SQ Q8 ANDRES Stop: 05/13/24 21:59 Last Admin: 04/20/24 05:20 Dose: 5,000 units Latanoprost (Latanoprost 0.005% Op Soln 2.5 Ml Btl) 1 drops OPL PM ANDRES Stop: 05/13/24 20:59 Last Admin: 04/19/24 20:39 Dose: 1 drops Losartan Potassium (Losartan Potassium 50 Mg Tab) 100 mg PO QAM ANDRES Stop: 05/14/24 08:59 Last Admin: 04/20/24 08:31 Dose: 100 mg Magnesium Oxide (Magnesium Oxide 400 Mg Tab) 400 mg PO DAILY [facility]RES Stop: 05/14/24 08:59 Last Admin: 04/20/24 08:31 Dose: 400 mg Morphine Sulfate (Morphine Sulfate 2 Mg/Ml Carp) 2 mg IV Q3H PRN PRN Reason: Pain Stop: 04/28/24 23:17 Last Admin: 04/14/24 23:31 Dose: 2 mg Nitroglycerin (Nitroglycerin Sl 0.4 Mg/Tab Tab) 0.4 mg SL Q5M PRN PRN Reason: Chest Pain Stop: 05/13/24 20:36 Ondansetron HCl (Ondansetron Inj 2 Mg/Ml 2 Ml Vial) 4 mg IV Q6H PRN PRN Reason: Nausea Stop: 05/13/24 20:36 Oxycodone/Acetaminophen (Oxycodone/Acetaminophen 5mg/325mg Tab) 1 tab PO Q6H PRN PRN Reason: Pain Stop: 04/30/24 12:46 Last Admin: 04/19/24 19:52 Dose: 1 tab Pantoprazole Sodium (Pantoprazole 40 Mg Tab) 40 mg PO DAILY ANDRES Stop: 05/14/24 08:59 Last Admin: 04/20/24 08:31 Dose: 40 mg Paroxetine HCl (Paroxetine Hcl 10 Mg Tab) 10 mg PO QAM ANDRES Stop: 05/14/24 08:59 Last Admin: 04/20/24 08:31 Dose: 10 mg Polyethylene Glycol (Polyethylene (Miralax) 17 Gm Pack) 17 gm PO DAILY PRN PRN Reason: Constipation Stop: 05/13/24 20:36 Pravastatin Sodium (Pravastatin Sod 10 Mg Tab) 10 mg PO HS ANDRES Stop: 05/13/24 20:59 Last Admin: 04/19/24 20:39 Dose: 10 mg Timolol Maleate (Timolol Gfs 0.25% Oph Soln 74 Drops/5 Ml Btl) 1 drops OP UD ANDRES Stop: 05/17/24 10:44 Last Admin: 04/20/24 08:30 Dose: 1 drops Vitamin D (Cholecalciferol 25 Mcg (1000 Units) Tab) 25 mcg PO DAILY [facility]RES Stop: 05/14/24 08:59 Last Admin: 04/20/24 08:31 Dose: 25 mcg
[2024-04-20 15:34] VITALS: BP 125/74; RESP 18; O2SAT 98
[2024-04-20 17:21] VITALS: PULSE 54
--- NOTE | 2024-04-21 07:48 | Discharge Summary ---
Date of Service April 21, 2024 Admission HPI Per Admitting Provider Patient is 83 year old female with PMH HTN, dyslipidemia, PSVT, PVCs, MATT stenosis CKD III, anxiety presented to ER with c/o fall. Patient states today was walking and looked around and caused her to miss 2 steps causing her to fall and hit left forehead and states has pain to left wrist and left knee. She denies LOC. Denies dizziness, palpitations, CP, or SOB prior to fall. She was able to get herself up and she drove to ER. She complains of pain to left forehead, pain to left wrist, left anterior knee as well as left ankle. Denies neck pain, back pain, shoulder or elbow pain, abdominal pain, hip pain. Denies pain to right upper or right lower extremity. She denies any CP or SOB or recent exertional CP or SOB. States in summer tripped over a hose and fell but states has not been having other recurrent falls and denies any dizziness, SOB, or CP prior to falls. Denies fever/chills, diaphoresis, N/V/D/C, MOE, dizziness, syncope, vision changes, neck pain, CP, SOB, orthopnea, palpitations, cough, sore throat, rhinorrhea, abdominal pain, paresthesias, weakness, extremity weakness, extremity edema, rashes, urinary symptoms. 03/05/2024 Echo: The LV wall thickness is normal. The left ventricular wall mo tion is normal. The qualitative LV ejection fraction is 55-59% (normal). The left atrium is moderately enlarged. The left ventricular diastolic function is mildly abnormal (grade I). Moderate aortic valve sclerosis is present. Aortic stenosis is absent. Mild mitral regurgitation is present. The estimated pulmonary artery systolic pressure is 38 mm Hg (upper limit of normal to mildly elevated). 03/26/2023 carotid duplex: Less than 50% stenosis of right internal carotid artery. Less than 50% stenosis left internal carotid artery Admission Exam Per Admitting Provider Physical Exam: General: no distress, overweight elderly female Head: normocephalic, +ecchymosis and edema to left forehead and left orbit, superficial laceration to left forehead with edges approximated and no active bleeding Eyes: PERRL, EOM's intact, conjunctiva non-injected, anicteric ENT: normal inspection external ears, nose, mucous membranes moist Neck: supple, trachea midline, non-tender to palpation Lungs: clear, no respiratory distress, no wheezing/rhonchi/rales CV: RRR, no JVD, no pretibial edema Abd: normal BS, soft, non-tender Ext: no cyanosis, no calf tenderness; RUE: Non tender and ROM intact. RLE: non- tender and ROM intact. LUE: shoulder and elbow non-tender with ROM intact, wrist with diffuse tenderness to palpation without edema or ecchymosis, able to flex and extend with tenderness. sensation to light touch intact. LLE: hip non-tender to palpation, +tenderness to palpation left anterior knee and tenderness with flexion. Ankle without ecchymosis and currently non-tender to palpation however reports was tender for other provider, sensation to light touch intact Neuro: A&O x 3, no focal deficits noted, normal affect Skin: warm, dry Principal Diagnosis Fall, left periorbital hematoma, non-ST elevation AR, fracture left distal radius Discharge Exam Lying in bed without any acute distress Constitutional well developed, well nourished, + ill appearing and + obese Eyes + periorbital abnormality (Periorbital bruising on left) ENMT external ear and nose normal, oropharynx normal Neck trachea midline, no thyromegaly Respiratory no respiratory distress Auscultation: lungs clear to auscultation bilaterally Cardiovascular Rate/Rhythm: regular rate, regular rhythm and + bradycardic Heart Sounds: normal S1 and normal S2; no murmur Extremities: no edema Gastrointestinal (Abdomen) Inspection/Auscultation: normal bowel sounds; abdomen not distended Percussion/Palpation: abdomen soft; abdomen nontender Musculoskeletal Extremities: + wrist abnormality (Swollen left wrist with painful movements in all directions) Neurologic normal touch/pain/proprioception and moves all extremities; no focal motor deficits Lymphatic no cervical or axillary lymphadenopathy Discharge Data Allergies Allergy/AdvReac Type Severity Reaction Status Date / Time Sulfa (Sulfonamide Allergy Mild rash Verified 04/13/24 18:39 Antibiotics) JAMAAL Inhibitors AdvReac Unknown COUGH Unverified 04/13/24 18:39 morphine AdvReac Unknown N/V per Unverified 04/13/24 18:39 cardio note- tolerates IV morphine not PO oxycodone AdvReac Unknown upset Unverified 04/13/24 18:39 stomach/vomiting sulindac AdvReac Unknown NAUSEA Unverified 04/13/24 18:39 VOMITING ezetimibe [From Zetia] AdvReac Verified 04/13/24 18:39 Consultations 04/13/24 18:29 ED Decision to Admit Stat 04/13/24 20:37 Consult Cardiology Routine 04/14/24 10:45 Consult Orthopedic Surgery Routine Ordered Studies 04/13/24 16:16 CT cervical spine wo con Stat CT head/brain wo con Stat 04/13/24 21:40 MRI Brain [MR brain wo/w con] Urgent Hospital Course (1) Fall from standing: Mechanical fall following missing while going to the parking lot Did not have any warning symptoms prior to the fall Injury to the head, left periorbital area, left hand and also left leg CT head: No acute intracranial abnormality or calvarial fracture. Left periorbital contusion. CT c-spine: There is no evidence of fracture or subluxation involving the cervical spine. Denies any more headache but has periorbital bruising MRI of the head has been negative Denies any headache, blurring of vision, any nausea no vomiting Remains medically stable to be discharged Awaiting placement Has been getting physical therapy and recommended rehab and awaiting placement Medically stable and awaiting placement- She is denied from skilled care Plan to send her home this afternoon with home PT and OT (2) Facial hematoma: Left periorbital hematoma and bruising have been improving Much improved periorbital swelling and bruising (3) Acute pain of left wrist: Patient is 83 year old female with PMH HTN, dyslipidemia, PSVT, PVCs, MATT stenosis CKD III, anxiety presented to ER with c/o fall missing 2 steps. Denies LOC. C/O pain to left forehead, left wrist, left knee and left ankle. Left wrist xray: No acute displaced fracture or dislocation. Lucent to the radial styloid should be correlated clinically to exclude an age-indeterminate nondisplaced fracture. Left ankle xray: No fracture In ER was placed in left wrist splint Will get Ortho evaluation-Appreciate input and recommendation Fall precautions PT/OT eval-appreciate input and recommendation The left wrist will have a splint placed by the orthopedic surgeon Was advised to take narcotic pain medications with caution Pain is much better with a splint and current pain medications Still has some pain with movement of the left wrist Pain is much better and the wrist (4) Elevated troponin: NSTEMI No chest pain and/or palpitation Troponin: 70 -->289 Troponin went up to 910 And the patient remained asymptomatic EKG sinus rhythm, Q waves septal leads, T wave flattening septal leads per my interpretation In ER given 324mg aspirin ER physician spoke to qualifications examiner supervisor press room, Dr Aguillon who recommended trending troponin and no heparin at this time R/O ACS. DDx NSTEMI Repeat EKG in am-Remained unremarkable Echo -LVEF was 55 to 60%, there is small sized basal inferior and posterior wall motion abnormality with hypokinesis of the segments, mild concentric LVH, moderate to severe MR, aortic valve sclerosis without significant valvular stenosis, trace tricuspid regurgitation and Doppler finding do not suggest pulmonary hypertension Lipid panel in am-Unremarkable, Will continue statin. In past history statin intolerance Continue aspirin, atenolol Cardiology consult-Appreciate input and recommendation Denies any cardiac symptoms No further issues (5) Hypomagnesemia: Magnesium: 1.6 In ER given 1GM magnesium sulfate Continue home magnesium oxide Magnesium lab in am-Normal (6) Acute hypokalemia: K: 3.4 Replace and monitor (7) HTN (hypertension): Continue amlodipine, atenolol, losartan (8) Dyslipidemia: Continue pravastatin (9) CKD (chronic kidney disease), stage III: Cr: 0.8. Was 0.8 with GFR: 68 in 01/16/24 Monitor renal functions (10) Anxiety: Continue paroxetine DVT Prophylaxis SQ Heparin Total Time Total Time Spent Total Time Spent (In Minutes): 35 minutes Discharge Plan Discharge Items Patient Disposition: Home - Self-Care Reason For Visit: FALL, ELEVATED TROPONIN Discharge Diagnosis: Fall, left periorbital hematoma, non-ST elevation AR, fracture left distal radius Condition on Discharge: Fair Activity: As commented below Activity Comment: Continue home PT and OT Weightbearing: Left non-weightbearing Weightbearing Comment: left wrist Non-emergency contact: Primary Care Provider Call non-emergency contact if: you have any medication questions and your symptoms worsen Follow-up/Referrals: Avi Hoskins PA-C [Physician Air Antisubmarine Officer] - 04/22/24 3:00 pm Shiv Spring MD [Primary Care Provider] - (Date & Time 04/24/2024 10:00 AM Provider Shiv Spring MD Department [facility] ) Diet: Heart Healthy Astrid Attending Provider Instructions: Please take precautions to avoid falls Take your medications as advised Strongly advised to take less of narcotic pain medications to avoid confusion, constipation, drowsiness and addiction Keep appointments with the healthcare providers Astrid Noc Analyst Provider Instructions: Orthopedic instructions: - Non weight bearing left wrist - keep cock up wrist brace on left wrist at all times - Ice to left wrist as needed for pain/swelling - Elevate left wrist as needed for swelling - Allowed for range of motion to all fingers of left hand. Allowed for left elbow range of motion - Call [phone] with any increased pain, swelling, questions or concerns - Follow up with [facility] orthopaedics in 7-10 days as scheduled. Pending Studies at Discharge: No Stand-Alone Forms: My [facility] [employer], Smoking Cessation Medications and DC Order Prescriptions: New carvedilol 6.25 mg Tablet 6.25 mg PO BIDM Qty: 6 0RF oxycodone-acetaminophen [Percocet] 5-325 mg Tablet 1 tab PO Q6H PRN (Reason: pain) Qty: 15 0RF Continued amlodipine 5 mg tablet 5 mg PO DAILY omega-3 fatty acids 1 tab PO DAILY paroxetine HCl 10 mg tablet 10 mg PO QAM pravastatin 10 mg tablet 10 mg PO HS losartan 100 mg tablet 100 mg PO QAM aspirin 81 mg Tablet,Delayed Release (Dr/Ec) 81 mg PO DAILY fluticasone propionate [Flonase Allergy Relief] 50 mcg/actuation [place],Suspension 2 spray INTRANASAL DAILY PRN (Reason: Allergy Symptoms) cholecalciferol (vitamin D3) [Vitamin D3] 1,000 unit Tablet 1,000 units PO DAILY magnesium oxide 400 mg (241.3 mg magnesium) Tablet 400 mg PO DAILY pantoprazole [Protonix] 40 mg tablet,delayed release (DR/EC) 40 mg PO DAILY latanoprost 0.005 % drops 1 drp OPL PM dorzolamide 2 % drops 1 drp OPL BID Discontinued atenolol 50 mg tablet 50 mg PO BID Discharge Orders: Discharge Order (Routine); Ordered 04/20/24 Ordered By: Richi Boyd Admission Data Admit Date/Time: 04/13/24 19:15 Attending Provider: Richi Boyd Admit Provider: Maria Luisa Adkins Primary Care Provider: Shiv Spring Other Providers: Maria Luisa Adkins; Gamal Soliman; Charlie Maurer; Luis Hopkins; Cyndi Gardiner; Girma Martinez; Latasha Azar; Amilcar Castaneda; Jerod Castillo; Jamie Christian; Cody Dubose; Jerod Michel; Rolf Mcghee; Tony Green; Familia Garcia; Cleveland Howard; Latasha De Dios; Jhonny Chung; Alexis Dunlap; Harpal Aparicio; Erika Emery; Luis Alberto Huffman; Florentin Salmon; Kaur Asher; Robert Cespedes; Malorie Jay; [facility]; Hussein [facility]; [place] Other Interventions: Discharge Summary Assessment (RN) Last Done: 04/20/24 17:42
== END 2024-04-20 18:34 | disposition home or self-care (01) | DRG 562 ==
LOC: ED 15:28 → 2S 19:15 → SUATTDRO 19:15 → 2S 20:24